=== PATIENT | male | born 1960 | race African-American/Black ===

== ENCOUNTER 2016-12-16 15:22 | Emergency (ER) | payer OTHER ==
[~2016-12-16] VITALS: Ht 180.3 cm; Wt 79.4 kg
[~2016-12-16 15:22] MED LIST: ACETAMINOPHEN-1 EAC1 ORAL; IBUPROFEN600 MG ORAL; KEFLEX500 MG ORAL; NKM; OCUFEN2.5 ML OP; TOBRAMYCIN5 ML OPHTHALM; [UNRECOGNIZED DRUG - OTHER] OP
--- NOTE | 2016-12-16 16:10 | Emergency Room Report ---
History of Present Illness General Chief Complaint: Wound Recheck/Suture Removal Source: Patient Present Illness HPI 55-year-old male presents to emergency Department complaining of previously sutured lacerations to the right forearm over 2 weeks ago. Patient states he sustained laceration and had sutures placed at [facility]. Patient reports pain 5/10 in severity. Patient denies erythema. Patient denies discharge. he states that the lacerations are somewhat itching in nature. Denies CP, Palpitations, LOC, AMS, dizziness, Changes in Vision, Sensation, paresthesias, or a sudden severe headache. Allergies: Coded Allergies: No Known Allergies (Unverified , 08/23/15) Patient History Past Medical History: see triage record Past Surgical History: none Pertinent Family History: none Immunizations: UTD Reviewed Nursing Documentation: PMH: Agreed, PSxH: Agreed Nursing Documentation-PMH Past Medical History: No History, Except For Hx Hypertension: Yes Hx Pacemaker: No Hx COPD: No Hx Diabetes: Yes - family hx Hx Cancer: Yes - family hx Hx Gastrointestinal Problems: No Hx Dialysis: No Hx Neurological Problems: No Hx Cerebrovascular Accident: Yes Hx Seizures: No Review of Systems All Other Systems: negative except mentioned in HPI Physical Exam Vital Signs Date Time Temp Pulse Resp B/P Pulse Ox O2 Delivery O2 Flow Rate FiO2 12/16/16 15:36 97.9 92 18 111/74 98 Room Air Sp02 EP Interpretation: reviewed, normal General Appearance: no apparent distress, alert, GCS 15, non-toxic Head: normocephalic, atraumatic Eyes: bilateral eye PERRL, bilateral eye normal inspection ENT: hearing grossly normal, normal pharynx, no angioedema, normal voice Neck: full range of motion, supple/symm/no masses Respiratory: chest non-tender, lungs clear, normal breath sounds, speaking full sentences Cardiovascular #1: regular rate, rhythm, no edema, normal capillary refill Rectal: deferred Musculoskeletal: back normal, gait/station normal, normal range of motion, non- tender, no calf tenderness Neurologic: alert, oriented x3, responsive, motor strength/tone normal, sensory intact, speech normal Psychiatric: judgement/insight normal, memory normal, mood/affect normal, no suicidal/homicidal ideation Skin: normal color, no rash, warm/dry, well hydrated, laceration - two previously sutured lacerations one with 8 inturrupted sutures and is approximately 2.5 inches long, and one that has 3 inturrupted sutures and is 0.8 inches long, no appreciable erythema of the right fore arm. Lymphatic: no adenopathy Medical Decision Making PA Attestation Dr. Cr is my supervising Physician whom patient management has been discussed with. Diagnostic Impression: Primary Impression: Encounter for removal of sutures ER Course Pt. presents to the ED c/o previously sutured laceration to the right arm that needs sutures to be removed s/p wound closure. Ddx considered but are not limited to laceration, tendon injury, cellulitis, dehiscence. Vital signs: are WNL, pt. is afebrile H&PE are most consistent with: healed laceration of the right forearm. ORDERS: none required at this time, the diagnosis is clinical ED INTERVENTIONS: - 11 Sutures removed. -the smaller laceration did have some notable purulent dc on the removed sutures , no evidence of dehiscence, will place pt. on oral abx. -bacitracin is applied. DISCHARGE: At this time pt. is stable for d/c to home. Will provide printed patient care instructions, and any necessary prescriptions. Care plan and follow up instructions have been discussed with the patient prior to discharge. Last Vital Signs Date Time Temp Pulse Resp B/P Pulse Ox O2 Delivery O2 Flow Rate FiO2 12/16/16 15:36 97.9 92 18 111/74 98 Room Air Disposition: HOME, SELF-CARE Condition: Stable Scripts Cephalexin* (KEFLEX*) 500 Mg Capsule 500 MG ORAL EVERY 12 HOURS for 7 Days, #14 CAP 0 Refills Prov: Vianney Pisano 12/16/16 [facility]errals[facility] (PCP) Patient Instructions: Suture Removal, Care After Additional Instructions: Take medications as directed. Follow up with PCP in 3-5 days Return sooner to ED if new symptoms occur, or current symptoms become worse. Vianney Pisano Dec 16, 2016 16:10
[2016-12-16] MEDS ORDERED: CEPHALEXIN500 MG ORAL (16:18)
[2016-12-16 16:26] VITALS: BP 109/68
[2016-12-16] MEDS ORDERED: Bacitracin Oint UD TOPIC ONE (16:30)
== END 2016-12-16 16:28 | disposition home or self-care (01) ==
LOC: EMR 16:05
DX: Z48.02 Encounter for removal of sutures (principal); I10 Essential (primary) hypertension; Z80.9 Family history of malignant neoplasm, unspecified; Z83.3 Family history of diabetes mellitus; Z86.73 Personal history of transient ischemic attack (TIA), and cerebral infarction without residual deficits
CPT/HCPCS: 99283

== ENCOUNTER 2017-01-09 18:41 | Emergency (ER) | payer OTHER ==
[~2017-01-09] VITALS: Ht 180.3 cm; Wt 77.1 kg
[~2017-01-09 18:41] MED LIST changes: +CEPHALEXIN500 MG ORAL
[2017-01-09] MEDS ORDERED: NKM (18:50)
[2017-01-09 19:03] VITALS: BP 132/72
[2017-01-09 19:30] LABS: KETONES,URINE NEGATIVE (NEGATIVE); LEUKOCYTE ESTERASE ,URINE 1+ (NEGATIVE); NITRITE,URINE NEGATIVE (NEGATIVE); PH,URINE 7 (4.5-8.0); PROTEIN,URINE 1+ (NEGATIVE); UROBILINOGEN,URINE NORMAL MG/DL (0.0-1.0)
[2017-01-09 19:41] LABS: APPEARANCE,URINE CLEAR
[2017-01-09 19:45] LABS: BACTERIA,URINE FEW /HPF; WBC,URINE 0-2 /HPF (0 - 0)
[2017-01-09 20:05] LABS: MEAN CORPUSCULAR HEMOGLOBIN 32.5 PG (27.0-31.0); MEAN CORPUSCULAR HGB CONC 34.6 G/DL (32.0-36.0); MEAN CORPUSCULAR VOLUME 94 FL (80-99); MEAN PLATELET VOLUME 8.4 FL (6.5-10.1); PLATELET COUNT 204 K/UL (150-450); RED BLOOD COUNT 4.33 M/UL (4.70-6.10); RED CELL DISTRIBUTION WIDTH 11.7 % (11.6-14.8); WHITE BLOOD COUNT 17.5 K/UL (4.8-10.8)
[2017-01-09 20:26] LABS: ALANINE AMINOTRANSFERASE 22 U/L (3-41); ALBUMIN/GLOBULIN RATIO 1.3 (1.0-2.7); ANION GAP 17 (5-15); ASPARTATE AMINO TRANSFERASE 19 U/L (5-40); CALCIUM 8.8 mg/dL (8.6-10.2); CARBON DIOXIDE 27 mEQ/L (20-30); CHLORIDE 92 mEQ/L (98-107); GLOMERULAR FILTRATION RATE > 60 mL/min (>60); HEMOLYSIS 14; POTASSIUM 3.8 mEQ/L (3.4-4.9); SODIUM 136 mEQ/L (135-145); TOTAL PROTEIN 7.8 g/dL (6.6-8.7)
[2017-01-09 20:38] LABS: BILIRUBIN,DIRECT 0.3 mg/dL (0.1-0.3)
--- NOTE | 2017-01-09 21:57 | Emergency Room Report ---
History of Present Illness General Chief Complaint: Male Urogenital Problems Present Illness HPI 56-year-old male presents emergency department complaining of acute intermittent right-sided back pain which began 4 days ago. Patient reports pain is 10 out of 10 in severity and lasts several seconds before complete resolution. Patient also reports onset of hematuria and dysuria x3 days. Patient states he has a history of kidney stones in the past. Patient also reports fevers and chills. he denies penile discharge or recent unprotected intercourse. he denies fall or trauma. Patient reports polyuria. And having cold hands and feet. Patient denies abdominal pain. Patient states that he has not had low back pain today. Patient reports difficulty urinating initially and then polyuria with hematuria and dysuria. Denies CP, Palpitations , LOC, AMS, dizziness, Changes in Vision, Sensation, paresthesias, or a sudden severe headache. (Vianney Pisano P.A.) Allergies: Coded Allergies: No Known Allergies (Unverified , 08/23/15) Patient History Past Medical History: see triage record Past Surgical History: none Pertinent Family History: none Immunizations: UTD Reviewed Nursing Documentation: PMH: Agreed, PSxH: Agreed (Vianney Pisano P.A.) Nursing Documentation-PMH Hx Hypertension: Yes Hx Pacemaker: No Hx COPD: No Hx Diabetes: Yes - family hx Hx Cancer: Yes - family hx Hx Gastrointestinal Problems: No Hx Dialysis: No Hx Neurological Problems: No Hx Cerebrovascular Accident: Yes Hx Seizures: No (Vianney Pisano P.A.) Review of Systems All Other Systems: negative except mentioned in HPI (Vianney Pisano P.A.) Physical Exam Vital Signs Date Time Temp Pulse Resp B/P Pulse Ox O2 Delivery O2 Flow Rate FiO2 01/09/17 18:47 97.5 89 20 132/72 100 Room Air Sp02 EP Interpretation: reviewed, normal General Appearance: no apparent distress, alert, GCS 15, non-toxic Head: normocephalic, atraumatic Eyes: bilateral eye PERRL, bilateral eye normal inspection ENT: hearing grossly normal, normal pharynx, no angioedema, normal voice Neck: full range of motion, supple/symm/no masses Respiratory: chest non-tender, lungs clear, normal breath sounds, speaking full sentences Cardiovascular #1: regular rate, rhythm, no edema Gastrointestinal: normal bowel sounds, non tender, soft, no guarding, no rebound Rectal: deferred Genitourinary: normal inspection, penis normal, CVA tenderness (R) Musculoskeletal: back normal, gait/station normal, normal range of motion Neurologic: alert, oriented x3, responsive, motor strength/tone normal, sensory intact, speech normal Psychiatric: judgement/insight normal, memory normal, mood/affect normal, no suicidal/homicidal ideation Skin: normal color, no rash, warm/dry, well hydrated Lymphatic: no adenopathy (Vianney Pisano) Medical Decision Making PA Attestation Dr. Guerra is my supervising Physician whom patient management has been discussed with. (Vianney Pisano) Diagnostic Impression: Primary Impression: Pyelonephritis Additional Impression: Cystitis ER Course 56-year-old male presents emergency department complaining of acute intermittent right-sided back pain which began 4 days ago. Patient reports pain is 10 out of 10 in severity and lasts several seconds before complete resolution. Patient also reports onset of hematuria and dysuria x3 days. Patient states he has a history of kidney stones in the past. Patient also reports fevers and chills. he denies penile discharge or recent unprotected intercourse. he denies fall or trauma. Patient reports polyuria. And having cold hands and feet. Ddx considered but are not limited to UTi , Pyelo, STI, Stone, Cystitis Vital signs: are WNL, pt. is afebrile H&PE are most consistent with possible pyelonephritis and stones. ORDERS: - UA labs are attached: RBC's, few bacteria, no WBC's, some leukocytes. - CBC & CMP: leukocytosis, good renal function. - CT abdomen and Pelvis No Contrast: perinephritic stranding of the right kidney, and thick urinary bladder c/w cystitis, No stones or hydronephrosis, normal appendix- per preliminary radiology report. ED INTERVENTIONS: -200mg Pyridium DISCHARGE: At this time pt. is stable for d/c to home. Will provide printed patient care instructions, and any necessary prescriptions. Care plan and follow up instructions have been discussed with the patient prior to discharge. Pt. is D/C with written RX's for: Cipro, Pyridium, and [place] The hand written rx's were for: 500mg Ciprofloxacin , one tablet PO twice daily #20 100g Pyridium , one tablet TID as needed for dysuria # 15 5mg [place], one tablet Q6H as needed for severe pain #5 Labs Test 01/09/17 19:23 01/09/17 19:46 Urine Color Pale yellow Urine Appearance Clear Urine pH 7 (4.5-8.0) Urine Specific [place] 1.005 (1.005-1.035) Urine Protein 1+ (NEGATIVE) Urine Glucose (UA) Negative (NEGATIVE) Urine Ketones Negative (NEGATIVE) Urine Occult Blood 3+ (NEGATIVE) Urine Nitrite Negative (NEGATIVE) Urine Bilirubin Negative (NEGATIVE) Urine Urobilinogen Normal MG/DL (0.0-1.0) Urine Leukocyte Esterase 1+ (NEGATIVE) Urine RBC 2-4 /HPF (0 - 0) Urine WBC 0-2 /HPF (0 - 0) Urine Squamous Epithelial Cells None /LPF (NONE/OCC) Urine Bacteria Few /HPF (NONE) White Blood Count 17.5 K/UL (4.8-10.8) Red Blood Count 4.33 M/UL (4.70-6.10) Hemoglobin 14.1 G/DL (14.2-18.0) Hematocrit 40.7 % (42.0-52.0) Mean Corpuscular Volume 94 FL (80-99) Mean Corpuscular Hemoglobin 32.5 PG (27.0-31.0) Mean Corpuscular Hemoglobin Concent 34.6 G/DL (32.0-36.0) Red Cell Distribution Width 11.7 % (11.6-14.8) Platelet Count 204 K/UL (150-450) Mean Platelet Volume 8.4 FL (6.5-10.1) Neutrophils (%) (Auto) % (45.0-75.0) Lymphocytes (%) (Auto) % (20.0-45.0) Monocytes (%) (Auto) % (1.0-10.0) Eosinophils (%) (Auto) % (0.0-3.0) Basophils (%) (Auto) % (0.0-2.0) Differential Total Cells Counted 100 Neutrophils % (Manual) 82 % (45-75) Lymphocytes % (Manual) 9 % (20-45) Monocytes % (Manual) 4 % (1-10) Eosinophils % (Manual) 0 % (0-3) Basophils % (Manual) 0 % (0-2) Band Neutrophils 5 % (0-8) Platelet Estimate Adequate Platelet Morphology Normal Red Blood Cell Morphology Normal Sodium Level 136 mEQ/L (135-145) Potassium Level 3.8 mEQ/L (3.4-4.9) Chloride Level 92 mEQ/L (98-107) Carbon Dioxide Level 27 mEQ/L (20-30) Anion Gap 17 (5-15) Blood Urea Nitrogen 9 mg/dL (7-23) Creatinine 1.0 mg/dL (0.7-1.2) Estimat Glomerular Filtration Rate > 60 mL/min (>60) Glucose Level 107 mg/dL (74-106) Calcium Level 8.8 mg/dL (8.6-10.2) Total Bilirubin 1.3 mg/dL (0.0-1.2) Direct Bilirubin 0.3 mg/dL (0.1-0.3) Aspartate Amino Transf (AST/SGOT) 19 U/L (5-40) Alanine Aminotransferase (ALT/SGPT) 22 U/L (3-41) Alkaline Phosphatase 64 U/L (40-129) Total Protein 7.8 g/dL (6.6-8.7) Albumin 4.5 g/dL (3.5-5.2) Globulin 3.3 g/dL Albumin/Globulin Ratio 1.3 (1.0-2.7) (Vianney Pisano) Last Vital Signs Date Time Temp Pulse Resp B/P Pulse Ox O2 Delivery O2 Flow Rate FiO2 01/09/17 19:03 97.5 88 20 132/72 100 Room Air (Vianney Pisano) Disposition: HOME, SELF-CARE Condition: Stable Referrals: [facility] (PCP) Patient Instructions: Pyelonephritis, Adult Additional Instructions: Take medications as directed. Follow up with PCP in 3-5 days Return sooner to ED if new symptoms occur, or current symptoms become worse. Do not drink alcohol, drive, or operate heavy machinery while taking [place] as this may cause drowsiness. - Please note that this Emergency Department Report was dictated using [employer] manager technology software, occasionally this can lead to erroneous entry secondary to interpretation by the dictation equipment. Vianney Pisano Jan 09, 2017 21:57 Guillermo Guerra M.D. Jan 14, 2017 00:51
[2017-01-09] MEDS ORDERED: Phenazopyridine 200mg tab ORAL ONE (22:00)
[2017-01-09 22:21] LABS: BAND NEUTROPHILS % (MANUAL) 5 % (0-8); LYMPHOCYTES % (MANUAL) 9 % (20-45); NEUTROPHILS % (MANUAL) 82 % (45-75); TOTAL CELLS COUNTED 100
[2017-01-09 22:26] LABS: BASOPHILS % (MANUAL) 0 % (0-2); EOSINOPHILS % (MANUAL) 0 % (0-3); PLATELET ESTIMATE ADEQUATE; PLATELET MORPHOLOGY NORMAL
[2017-01-09 22:28] VITALS: BP 132/70
[2017-01-09 22:29] VITALS: BP 132/70
--- NOTE | 2017-01-10 09:08 | Diagnostic Imaging Report ---
Indication: Abdominal pain Technique: Spiral acquisitions obtained through the abdomen and pelvis. No oral contrast utilized, per emergency room physician request No IV contrast utilized, per referring physician request.. Multiplanar reconstructions were generated. Total dose length product 650 mGycm. CTDIvol(s) 12 mGy Comparison: None Findings: The bladder is markedly thick walled. There is trace edema versus free fluid posterior to the bladder. The prostate is enlarged. The prosthetic margins appear blurred. A normal appendix is probably demonstrated. No evidence of diverticulosis or diverticulitis. No small bowel distention. Other than a small amount of fluid or edema posterior to the bladder, no free or loculated intraperitoneal air or fluid is demonstrated. Lack of IV contrast limits assessment of solid organs. The liver, gallbladder, bile ducts, pancreas, spleen, adrenals are unremarkable. There are is nonspecific mild bilateral perinephric fat stranding. No focal renal parenchymal abnormality. No retroperitoneal or mesenteric mass or adenopathy. No pelvic mass or adenopathy. Surgical clips are seen in the bilateral inguinal regions The included lung bases are clear. The bones are unremarkable. Impression: Thickwalled bladder, suspect cystitis. Small amount of edema or free fluid posterior to the bladder is likely related to such Enlarged prostate with indistinct margins, may indicate prostatitis Bilateral perinephric stranding, raises possibility of bilateral pyelonephritis Evidence of prior right groin surgery bilaterally This agrees with the preliminary interpretation provided overnight by Dr. Joseph The CT scanner at [facility] is accredited by the [employer] and the scans are performed using protocols designed to limit radiation exposure to as low as reasonably achievable to attain images of sufficient resolution adequate for diagnostic evaluation.
== END 2017-01-09 22:30 | disposition home or self-care (01) ==
LOC: EMR 19:31
DX: N12 Tubulo-interstitial nephritis, not specified as acute or chronic (principal); N30.90 Cystitis, unspecified without hematuria; I10 Essential (primary) hypertension; Z83.3 Family history of diabetes mellitus; Z80.9 Family history of malignant neoplasm, unspecified; Z86.73 Personal history of transient ischemic attack (TIA), and cerebral infarction without residual deficits; N40.0 Benign prostatic hyperplasia without lower urinary tract symptoms
CPT/HCPCS: 36415; 74176; 80053; 81003; 82248; 85007; 85025; 99284

== ENCOUNTER 2017-08-18 18:02 | Emergency (ER) | payer OTHER ==
[~2017-08-18] VITALS: Ht 180.3 cm; Wt 74.8 kg
[2017-08-18] MEDS ORDERED: traMADol 50mg tab ORAL ONE (18:45)
[2017-08-18] MEDS ORDERED: Bacitracin Oint UD TOPIC ONE (18:45)
[2017-08-18] MEDS ORDERED: AUGMENTIN 875-1 EAC1 ORAL (19:05)
[2017-08-18] MEDS ORDERED: TRAMADOL HCL50 MG ORAL (19:05)
[2017-08-18] MEDS ORDERED: PEPCID40 MG PO (19:05)
[2017-08-18] MEDS ORDERED: IBUPROFEN600 MG ORAL (19:05)
[2017-08-18 19:26] VITALS: BP 134/80
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
--- NOTE | 2017-08-19 11:34 | Diagnostic Imaging Report ---
Indication: pain Findings: 3 views of the left hand were obtained. Normal alignment is demonstrated. No acute fractures, erosions, or periosteal reaction are seen. Soft tissues are unremarkable. Impression: No acute findings.
== END 2017-08-18 19:30 | disposition home or self-care (01) ==
LOC: EMR 19:30
DX: S61.218A Laceration without foreign body of other finger without damage to nail, initial encounter (principal); Y04.0XXA Assault by unarmed brawl or fight, initial encounter; Y92.89 Other specified places as the place of occurrence of the external cause; E11.9 Type 2 diabetes mellitus without complications; I10 Essential (primary) hypertension
CPT/HCPCS: 99284

== ENCOUNTER 2018-04-09 23:38 | Emergency (ER) | payer OTHER ==
[~2018-04-09] VITALS: Ht 180.3 cm; Wt 81.6 kg
[~2018-04-09 23:38] MED LIST changes: +AUGMENTIN 875-1 EAC1 ORAL; +PEPCID40 MG PO; +TRAMADOL HCL50 MG ORAL
[2018-04-10] MEDS ORDERED: Aspirin Baby 81mg ORAL ONE
[2018-04-10 00:17] LABS: BILIRUBIN, URINE NEGATIVE (NEGATIVE); COLOR,URINE PALE YELLOW; GLUCOSE, URINE (UA) NEGATIVE (NEGATIVE); KETONES,URINE NEGATIVE (NEGATIVE); NITRITE,URINE NEGATIVE (NEGATIVE); PH,URINE 8 (4.5-8.0); PROTEIN,URINE NEGATIVE (NEGATIVE); UROBILINOGEN,URINE NORMAL MG/DL (0.0-1.0)
[2018-04-10 00:17] LABS: BASOPHILS % (AUTO) 0.7 % (0.0-2.0); EOSINOPHILS % (AUTO) 1.5 % (0.0-3.0); HEMATOCRIT 37.4 % (42.0-52.0); HEMOGLOBIN 13.3 G/DL (14.2-18.0); LYMPHOCYTES % (AUTO) 16.6 % (20.0-45.0); MEAN CORPUSCULAR VOLUME 92 FL (80-99); MONOCYTES % (AUTO) 6.4 % (1.0-10.0); NEUTROPHILS % (AUTO) 74.9 % (45.0-75.0); PLATELET COUNT 212 K/UL (150-450); RED BLOOD COUNT 4.06 M/UL (4.70-6.10); RED CELL DISTRIBUTION WIDTH 12.4 % (11.6-14.8); WHITE BLOOD COUNT 10.2 K/UL (4.8-10.8)
[2018-04-10 00:19] LABS: APPEARANCE,URINE CLEAR; LEUKOCYTE ESTERASE ,URINE NEGATIVE (NEGATIVE)
[2018-04-10 00:24] LABS: ANION GAP 6 mmol/L (5-15); BLOOD UREA NITROGEN 13 mg/dL (7-18); CALCIUM 8.2 MG/DL (8.5-10.1); CARBON DIOXIDE 30 MMOL/L (21-32); CHLORIDE 103 MMOL/L (98-107); CREATININE 1.1 MG/DL (0.55-1.30); SODIUM 139 MMOL/L (136-145)
[2018-04-10 00:37] LABS: ALANINE AMINOTRANSFERASE 33 U/L (12-78); ALBUMIN 3.7 G/DL (3.4-5.0); ALBUMIN/GLOBULIN RATIO 0.9 (1.0-2.7); ALKALINE PHOSPHATASE 72 U/L (46-116); ASPARTATE AMINO TRANSFERASE 15 U/L (15-37); BILIRUBIN,TOTAL 0.4 MG/DL (0.2-1.0); CREATINE KINASE 155 U/L (26-308)
[2018-04-10] MEDS ORDERED: Nitroglycerin Subl 0.4mg tab SL PRN (00:45)
[2018-04-10] MEDS ORDERED: Enoxaparin 100mg Inj SUBQ ONE (00:45)
--- NOTE | 2018-04-10 00:48 | Emergency Room Report ---
History of Present Illness General Chief Complaint: Chest Pain Source: Patient Present Illness HPI This is a 57-year-old -Armenian male with no past medical history. He presents with chief complaint of chest pain and short of breath. Onset for last 2-3 days. He said pain is mild at baseline and worse when he walks. He said he has a hard time walking because of the pain in he get winded. Pain is substernal waiting to both arms. No diaphoresis. Short of breath with walking. No nausea no vomiting. Increased owing to the lower extremity. At baseline pain is 2-3. When he walks up to a 10 out of 10. Never had this problem before. Allergies: Coded Allergies: No Known Allergies (Unverified , 04/09/18) Patient History Past Medical History: see triage record, old chart reviewed Past Surgical History: none Pertinent Family History: HTN, DM Social History: Reports: smoking Immunizations: other Reviewed Nursing Documentation: PMH: Agreed; PSxH: Agreed Nursing Documentation-PMH Past Medical History: No Stated History Hx Hypertension: No Hx Pacemaker: No Hx COPD: No Hx Diabetes: Yes - family hx Hx Cancer: Yes - family hx Hx Gastrointestinal Problems: No Hx Dialysis: No Hx Neurological Problems: No Hx Cerebrovascular Accident: Yes Hx Seizures: No Review of Systems Eye: Denies: eye pain, blurred vision ENT: Denies: ear pain, nose congestion, throat swelling Respiratory: Denies: cough, shortness of breath Cardiovascular: Reports: chest pain; Denies: palpitations Gastrointestinal: Denies: abdominal pain, diarrhea, nausea, vomiting Musculoskeletal: Denies: back pain, joint pain Skin: Denies: rash Neurological: Denies: headache, numbness Endocrine: Denies: increased thirst, increased urine Hematologic/Lymphatic: Denies: easy bruising All Other Systems: negative except mentioned in HPI Physical Exam Vital Signs Date Time Temp Pulse Resp B/P (MAP) Pulse Ox O2 Delivery O2 Flow Rate FiO2 04/09/18 23:39 97.8 106 16 117/72 98 Room Air 97.9 vitals with tachycardia Sp02 EP Interpretation: reviewed, normal General Appearance: well appearing, no apparent distress, alert Head: normocephalic, atraumatic Eyes: bilateral eye PERRL, bilateral eye EOMI ENT: hearing grossly normal, normal pharynx Neck: full range of motion, supple, no meningismus Respiratory: chest non-tender, lungs clear, normal breath sounds Cardiovascular #1: regular rate, rhythm, no murmur Gastrointestinal: normal bowel sounds, non tender, no mass, no organomegaly, no bruit, non-distended Musculoskeletal: back normal, gait/station normal, normal range of motion, swelling - 1+ pitting edema to bilateral lower extremities Psychiatric: mood/affect normal Skin: warm/dry Procedures Critical Care Time Critical Care Time Critical care is mandated in this patient who presented with ACS. Patient require my urgent intervention to attenuate the risks of metabolic collapse which may lead to cardiovascular collapse and . Critical care time is 35 minutes excluding any reportable procedure. Critical care time included evaluation, multiple reevaluation, looking at old charts, interpreting laboratory and diagnostic data, discussing case with patient and family and consultants, and charting. Medical Decision Making Diagnostic Impression: Primary Impression: ACS (acute coronary syndrome) ER Course Patient presents with mild chest pain and worsened by exertional pain. No evidence of ST elevation NE. He is pain-free now. He received aspirin, Lovenox and nitroglycerin here. I discussed the case with Dr. Rico who accepted him for transfer to [facility]. Laboratory Tests Test 04/09/18 23:50 04/10/18 00:00 Urine Color Pale yellow Urine Appearance Clear Urine pH 8 (4.5-8.0) Urine Specific [place] 1.010 (1.005-1.035) Urine Protein Negative (NEGATIVE) Urine Glucose (UA) Negative (NEGATIVE) Urine Ketones Negative (NEGATIVE) Urine Occult Blood Negative (NEGATIVE) Urine Nitrite Negative (NEGATIVE) Urine Bilirubin Negative (NEGATIVE) Urine Urobilinogen Normal MG/DL (0.0-1.0) Urine Leukocyte Esterase Negative (NEGATIVE) Urine Opiates Screen Negative (NEGATIVE) Urine Barbiturates Screen Negative (NEGATIVE) Phencyclidine (PCP) Screen Negative (NEGATIVE) Urine Amphetamines Screen Negative (NEGATIVE) Urine Benzodiazepines Screen Negative (NEGATIVE) Urine Cocaine Screen Negative (NEGATIVE) Urine Marijuana (THC) Screen Positive (NEGATIVE) H White Blood Count 10.2 K/UL (4.8-10.8) Red Blood Count 4.06 M/UL (4.70-6.10) L Hemoglobin 13.3 G/DL (14.2-18.0) L Hematocrit 37.4 % (42.0-52.0) L Mean Corpuscular Volume 92 FL (80-99) Mean Corpuscular Hemoglobin 32.8 PG (27.0-31.0) H Mean Corpuscular Hemoglobin Concent 35.6 G/DL (32.0-36.0) Red Cell Distribution Width 12.4 % (11.6-14.8) Platelet Count 212 K/UL (150-450) Mean Platelet Volume 8.3 FL (6.5-10.1) Neutrophils (%) (Auto) 74.9 % (45.0-75.0) Lymphocytes (%) (Auto) 16.6 % (20.0-45.0) L Monocytes (%) (Auto) 6.4 % (1.0-10.0) Eosinophils (%) (Auto) 1.5 % (0.0-3.0) Basophils (%) (Auto) 0.7 % (0.0-2.0) Sodium Level 139 MMOL/L (136-145) Potassium Level 4.0 MMOL/L (3.5-5.1) Chloride Level 103 MMOL/L (98-107) Carbon Dioxide Level 30 MMOL/L (21-32) Anion Gap 6 mmol/L (5-15) Blood Urea Nitrogen 13 mg/dL (7-18) Creatinine 1.1 MG/DL (0.55-1.30) Estimat Glomerular Filtration Rate > 60 mL/min (>60) Glucose Level 108 MG/DL (74-106) H Calcium Level 8.2 MG/DL (8.5-10.1) L Total Bilirubin 0.4 MG/DL (0.2-1.0) Aspartate Amino Transf (AST/SGOT) 15 U/L (15-37) Alanine Aminotransferase (ALT/SGPT) 33 U/L (12-78) Alkaline Phosphatase 72 U/L (46-116) Total Creatine Kinase 155 U/L (26-308) Creatine Kinase MB 1.0 NG/ML (0.0-3.6) Creatine Kinase MB Relative Index 0.6 Troponin I 0.529 ng/mL (0.000-0.056) Pro-B-Type Natriuretic Peptide 110 pg/mL (0-125) Total Protein 7.6 G/DL (6.4-8.2) Albumin 3.7 G/DL (3.4-5.0) Globulin 3.9 g/dL Albumin/Globulin Ratio 0.9 (1.0-2.7) L Lab Results Impression labs with elevated troponin EKG Diagnostic Results Rate: normal Rhythm: NSR ST Segments: other - incomplete RBB ASA given to the pt in ED: Yes Rhythm Strip Diag. Results Rhythm Strip Time: 00:49 EP Interpretation: yes Rate: 86 Rhythm: NSR, no PVC's, no ectopy Chest X-Ray Diagnostic Results Chest X-Ray Diagnostic Results : Chest X-Ray Ordered: Yes # of Views/Limited/Complete: 1 View Indication: Chest Pain EP Interpretation: Yes Interpretation: no consolidation, no effusion, no pneumothorax, no acute cardiopulmonary disease Impression: No acute disease Electronically Signed by: Joselito Leon MD Last Vital Signs Date Time Temp Pulse Resp B/P (MAP) Pulse Ox O2 Delivery O2 Flow Rate FiO2 04/09/18 23:52 106 16 Room Air 04/09/18 23:39 97.8 117/72 98 97.9 Status: improved Disposition: XFER SHT-TRM HOSP Condition: Stable Referrals: [facility],REFERRING (PCP) JOSELITO LEON M.D. April 10, 2018 00:48
[2018-04-10 00:50] VITALS: BP 117/66
[2018-04-10 02:21] VITALS: BP 114/67
[2018-04-10 03:20] VITALS: BP 114/67
--- NOTE | 2018-04-10 10:08 | Diagnostic Imaging Report ---
Indication: Shortness of breath Technique: One view of the chest Comparison: 02/29/2016 Findings: Lungs and pleural spaces are clear. Heart size is normal. No significant interim change Impression: No acute process
--- NOTE | 2018-04-10 22:34 | Cardiology Report ---
APPROVED REPORT EKG Measurement Heart [id number] Sinus tachycardia Right bundle branch block Borderline ECG
== END 2018-04-10 03:20 | disposition short-term general hospital (02) ==
LOC: EMR 23:52
DX: I24.9 Acute ischemic heart disease, unspecified (principal); I10 Essential (primary) hypertension; E11.9 Type 2 diabetes mellitus without complications; Z83.3 Family history of diabetes mellitus; Z82.3 Family history of stroke
CPT/HCPCS: 36415; 71045; 80053; 80307; 81003; 82550; 82553; 83880; 84484; 85025; 93005; 99291; J1650; 99285

== ENCOUNTER 2018-08-26 15:38 | Emergency (ER) | payer OTHER ==
[~2018-08-26] VITALS: Ht 170.2 cm; Wt 72.6 kg
[2018-08-26 16:00] VITALS: BP 145/80
--- NOTE | 2018-08-26 16:04 | Emergency Room Report ---
History of Present Illness General Chief Complaint: Syncope Present Illness HPI Patient is a 57-year-old male brought in by EMS with [employer] after reportedly being arrested. The patient had the reported [employer] that he was feeling lightheaded. The patient stated that he does not get high. The patient had no head injury. Patient was assisted to the floor. He was not noted to have any tonic-clonic movements. The patient recently been transferred to outside facility for evaluation of chest pain. The patient had been seen at this facility multiple times in the past. History is markedly limited by patient's poor cooperation. Allergies: Coded Allergies: No Known Allergies (Unverified , 04/09/18) Patient History Past Medical History: see triage record Reviewed Nursing Documentation: PMH: Agreed; PSxH: Agreed Nursing Documentation-PMH Hx Hypertension: No Hx Pacemaker: No Hx COPD: No Hx Diabetes: Yes - family hx Hx Cancer: Yes - family hx Hx Gastrointestinal Problems: No Hx Dialysis: No Hx Neurological Problems: No Hx Cerebrovascular Accident: Yes Hx Seizures: No Review of Systems All Other Systems: limited - by poor historian Physical Exam Vital Signs Date Time Temp Pulse Resp B/P (MAP) Pulse Ox O2 Delivery O2 Flow Rate FiO2 08/26/18 15:34 102 21 145/80 96 Room Air Sp02 EP Interpretation: reviewed, normal General Appearance: normal inspection, well appearing, no apparent distress, alert, GCS 15, non-toxic Head: atraumatic ENT: normal ENT inspection, hearing grossly normal, normal voice Neck: normal inspection, full range of motion, supple, no bony tend Respiratory: normal inspection, lungs clear, normal breath sounds, no respiratory distress, no retraction, no wheezing Cardiovascular #1: regular rate, rhythm, no edema Gastrointestinal: normal inspection, normal bowel sounds, non tender, soft, no guarding, no hernia Genitourinary: no CVA tenderness Musculoskeletal: normal inspection, back normal, normal range of motion Neurologic: normal inspection, alert, responsive, tie in hand III-XII nml as tested, other - cooperative, pupils equal and reactive Psychiatric: normal inspection, other - tearful Skin: normal inspection, normal color, no rash Medical Decision Making Diagnostic Impression: Primary Impression: Syncope Additional Impression: Trichomonas infection ER Course Patient presented for possible syncope. Differential diagnosis included but was not limited to arrhythmia, orthostatic hypotension, hypovolemia, vasovagal, anemia among others. Because of complexity of patient's case laboratory testing and imaging studies were ordered. Patient was noted be awake alert and following commands. EKG interpreted by me showed normal sinus rhythm with a rate of [address] or T wave changes. Patient was noted to have incomplete right bundle- branch block which was also seen on previous EKGs.The patient's urine drug screen showed the positive for marijuana. Patient was not noted to be anemic. The patient was noted to be the behaving appropriately and following commands when asked questions. The patient is medically cleared for booking. The patient was discharged with [employer]. The patient was given IV Rocephin for urinary tract infection and was given prescription for Flagyl for Trichomonas. The patient appears to be stable for booking. Labs Test 08/26/18 15:56 White Blood Count 8.4 K/UL (4.8-10.8) Red Blood Count 4.24 M/UL (4.70-6.10) Hemoglobin 14.2 G/DL (14.2-18.0) Hematocrit 38.7 % (42.0-52.0) Mean Corpuscular Volume 91 FL (80-99) Mean Corpuscular Hemoglobin 33.4 PG (27.0-31.0) Mean Corpuscular Hemoglobin Concent 36.7 G/DL (32.0-36.0) Red Cell Distribution Width 11.7 % (11.6-14.8) Platelet Count 222 K/UL (150-450) Mean Platelet Volume 6.9 FL (6.5-10.1) Neutrophils (%) (Auto) 64.6 % (45.0-75.0) Lymphocytes (%) (Auto) 27.4 % (20.0-45.0) Monocytes (%) (Auto) 4.6 % (1.0-10.0) Eosinophils (%) (Auto) 2.1 % (0.0-3.0) Basophils (%) (Auto) 1.2 % (0.0-2.0) Urine Color Pale yellow Urine Appearance Clear Urine pH 5 (4.5-8.0) Urine Specific [place] 1.010 (1.005-1.035) Urine Protein Negative (NEGATIVE) Urine Glucose (UA) Negative (NEGATIVE) Urine Ketones Negative (NEGATIVE) Urine Blood 1+ (NEGATIVE) Urine Nitrite Negative (NEGATIVE) Urine Bilirubin Negative (NEGATIVE) Urine Urobilinogen Normal MG/DL (0.0-1.0) Urine Leukocyte Esterase 2+ (NEGATIVE) Urine RBC 2-4 /HPF (0 - 0) Urine WBC 10-15 /HPF (0 - 0) Urine Squamous Epithelial Cells Few /LPF (NONE/OCC) Urine Bacteria Occasional /HPF (NONE) Urine Trichomonas Occasional /HPF (NONE) Sodium Level 140 MMOL/L (136-145) Potassium Level 3.6 MMOL/L (3.5-5.1) Chloride Level 106 MMOL/L (98-107) Carbon Dioxide Level 24 MMOL/L (21-32) Anion Gap 10 mmol/L (5-15) Blood Urea Nitrogen 13 mg/dL (7-18) Creatinine 1.0 MG/DL (0.55-1.30) Estimat Glomerular Filtration Rate > 60 mL/min (>60) Glucose Level 105 MG/DL (74-106) Calcium Level 8.4 MG/DL (8.5-10.1) Total Bilirubin 0.5 MG/DL (0.2-1.0) Aspartate Amino Transf (AST/SGOT) 17 U/L (15-37) Alanine Aminotransferase (ALT/SGPT) 23 U/L (12-78) Alkaline Phosphatase 61 U/L (46-116) Troponin I 0.037 ng/mL (0.000-0.056) Total Protein 7.2 G/DL (6.4-8.2) Albumin 3.6 G/DL (3.4-5.0) Globulin 3.6 g/dL Albumin/Globulin Ratio 1.0 (1.0-2.7) Urine Opiates Screen Negative (NEGATIVE) Acetaminophen Level < 2 MCG/ML (10-30) Urine Barbiturates Screen Negative (NEGATIVE) Phencyclidine (PCP) Screen Negative (NEGATIVE) Urine Amphetamines Screen Negative (NEGATIVE) Urine Benzodiazepines Screen Negative (NEGATIVE) Urine Cocaine Screen Negative (NEGATIVE) Urine Marijuana (THC) Screen Positive (NEGATIVE) EKG Diagnostic Results Rate: normal Rhythm: NSR ST Segments: no acute changes Last Vital Signs Date Time Temp Pulse Resp B/P (MAP) Pulse Ox O2 Delivery O2 Flow Rate FiO2 08/26/18 15:34 102 21 145/80 96 Room Air Status: improved Disposition: D/C TO [facility] ENFORCEMENT IN [facility] Condition: Stable Scripts Metronidazole* (FLAGYL*) 500 Mg Tablet 500 MG ORAL BID, #14 TAB Prov: Asher Acuna MD 08/26/18 Asher Acuna MD Aug 26, 2018 16:04
[2018-08-26 16:13] LABS: BASOPHILS % (AUTO) 1.2 % (0.0-2.0); EOSINOPHILS % (AUTO) 2.1 % (0.0-3.0); HEMATOCRIT 38.7 % (42.0-52.0); HEMOGLOBIN 14.2 G/DL (14.2-18.0); LYMPHOCYTES % (AUTO) 27.4 % (20.0-45.0); MEAN CORPUSCULAR VOLUME 91 FL (80-99); MONOCYTES % (AUTO) 4.6 % (1.0-10.0); NEUTROPHILS % (AUTO) 64.6 % (45.0-75.0); PLATELET COUNT 222 K/UL (150-450); RED BLOOD COUNT 4.24 M/UL (4.70-6.10); RED CELL DISTRIBUTION WIDTH 11.7 % (11.6-14.8); WHITE BLOOD COUNT 8.4 K/UL (4.8-10.8)
[2018-08-26 16:14] LABS: APPEARANCE,URINE CLEAR; BILIRUBIN, URINE NEGATIVE (NEGATIVE); COLOR,URINE PALE YELLOW; GLUCOSE, URINE (UA) NEGATIVE (NEGATIVE); KETONES,URINE NEGATIVE (NEGATIVE); LEUKOCYTE ESTERASE ,URINE 2+ (NEGATIVE); NITRITE,URINE NEGATIVE (NEGATIVE); PH,URINE 5 (4.5-8.0); PROTEIN,URINE NEGATIVE (NEGATIVE); UROBILINOGEN,URINE NORMAL MG/DL (0.0-1.0)
[2018-08-26 16:36] LABS: ANION GAP 10 mmol/L (5-15); BLOOD UREA NITROGEN 13 mg/dL (7-18); CALCIUM 8.4 MG/DL (8.5-10.1); CARBON DIOXIDE 24 MMOL/L (21-32); CHLORIDE 106 MMOL/L (98-107); POTASSIUM 3.6 MMOL/L (3.5-5.1); SODIUM 140 MMOL/L (136-145)
[2018-08-26 16:40] LABS: ALANINE AMINOTRANSFERASE 23 U/L (12-78); ALBUMIN 3.6 G/DL (3.4-5.0); ALKALINE PHOSPHATASE 61 U/L (46-116); ASPARTATE AMINO TRANSFERASE 17 U/L (15-37); BILIRUBIN,TOTAL 0.5 MG/DL (0.2-1.0)
[2018-08-26] MEDS ORDERED: cefTRIAXone 1 GM in NS 55 ML IVPB ONE (16:45)
[2018-08-26] MEDS ORDERED: METRONIDAZOLE500 MG ORAL (17:21)
[2018-08-26 17:52] VITALS: BP 120/80
--- NOTE | 2018-08-30 12:18 | Cardiology Report ---
APPROVED REPORT EKG Measurement Heart [id number] Normal sinus rhythm Normal ECG
== END 2018-08-26 17:55 | disposition home or self-care (01) ==
LOC: EDBD 15:38 → EMR 15:58
DX: R55 Syncope and collapse (principal); A59.9 Trichomoniasis, unspecified
CPT/HCPCS: 36415; 80053; 80307; 81001; 84484; 85025; 87086; 93005; 96365; 99284; G0480; J0696; 80329

== ENCOUNTER 2020-08-09 00:11 | Inpatient (IN) | payer MEDICAID, OTHER ==
[2020-08-09] VITALS (8 sets, daily range): BP systolic 107–128; BP diastolic 65–85
[~2020-08-09] VITALS: Ht 180.3 cm; Wt 93.6 kg
[~2020-08-09 00:11] MED LIST changes: +METRONIDAZOLE500 MG ORAL
[2020-08-09 01:22] LABS: BASOPHILS % (AUTO) 0.8 % (0.0-2.0); EOSINOPHILS % (AUTO) 1.6 % (0.0-3.0); HEMATOCRIT 39.1 % (42.0-52.0); HEMOGLOBIN 14.3 G/DL (14.2-18.0); LYMPHOCYTES % (AUTO) 21.1 % (20.0-45.0); MEAN CORPUSCULAR VOLUME 89 FL (80-99); MONOCYTES % (AUTO) 6.5 % (1.0-10.0); NEUTROPHILS % (AUTO) 69.9 % (45.0-75.0); PLATELET COUNT 199 K/UL (150-450); RED BLOOD COUNT 4.38 M/UL (4.70-6.10); RED CELL DISTRIBUTION WIDTH 12.4 % (11.6-14.8); WHITE BLOOD COUNT 8.3 K/UL (4.8-10.8)
[2020-08-09 01:29] LABS: ANION GAP 8 mmol/L (5-15); BLOOD UREA NITROGEN 10 mg/dL (7-18); CALCIUM 8.5 MG/DL (8.5-10.1); CARBON DIOXIDE 27 MMOL/L (21-32); CHLORIDE 103 MMOL/L (98-107); CREATININE 1.1 MG/DL (0.55-1.30); POTASSIUM 3.5 MMOL/L (3.5-5.1); SODIUM 138 MMOL/L (136-145)
[2020-08-09 01:43] LABS: ALANINE AMINOTRANSFERASE 26 U/L (12-78); ALBUMIN 3.8 G/DL (3.4-5.0); ALBUMIN/GLOBULIN RATIO 1.3 (1.0-2.7); ALKALINE PHOSPHATASE 70 U/L (46-116); ASPARTATE AMINO TRANSFERASE 22 U/L (15-37); BILIRUBIN,TOTAL 1.2 MG/DL (0.2-1.0)
[2020-08-09 01:52] LABS: BILIRUBIN,DIRECT 0.3 MG/DL (0.0-0.3)
[2020-08-09] MEDS ORDERED: Nitroglycerin 2% oint pkt TOPIC ONE (02:15)
--- NOTE | 2020-08-09 02:22 | Emergency Room Report ---
History of Present Illness General Chief Complaint: Edema Source: Patient Present Illness HPI 59-year-old male with history of CAD status post stent x3, hypertension, dyslipidemia presents with complaints of generalized weakness and lower extremity edema that has been progressive for the last several weeks. Also endorses dyspnea on exertion but denies chest pain. He states he has been noncompliant with his medications. Denies recent history of cardiac evaluation or echocardiogram. Symptoms do not feel similar to previous PA. Patient denies fevers, chills, nausea, vomiting, diarrhea, shortness of breath, cough, hemoptysis, or history of blood clot. The patient's symptoms were gradual onset, severity was moderate, duration since 2 days. Quality: Short of breath Past medical history: CAD, CHF, hypertension, dyslipidemia Past surgical history: Stent x3 Smoking: Positive Alcohol use: Denies Drug use: Marijuana Review of systems: CONST: No fevers or chills, No night sweats PULMONARY: No productive cough, ++ shortness of breath CARDIAC: No chest pain, No palpitations GI: No vomiting, No diarrhea , No melena_or_BRBPR : No dysuria, No hematuria, No discharge NEURO: No new_focal_weakness_or_numbness, No confusion, No vision changes 14 point Review of Systems is otherwise negative except per HPI Physical Exam: GENERAL: Awake_alert_ nontoxic, no acute distress Spo2 97% on RA -normal EYES: Extraocular muscles are intact. Conjunctivae clear. Lids without swelling ENT: External nose and ear normal_in_appearance. Oropharynx clear. Head_a traumatic, Moist_oral_mucosa NECK: No JVD. No meningismus. No thyromegaly. Supple. Trachea midline RESP: Normal respiratory effort. Symmetric rise. No stridor. Clear_to_auscultation_No_rales_No_wheezes CARDIAC: Regular rate and regular rhytm. No_significant pedal edema. ABDOMEN: Soft. Nondistended. Nontender_No_rebound_or_guarding. MSK: Normal muscle tone, without rigidity. Extremities without asymmetric deformity or swelling. SKIN: Warm and dry. No visible cyanosis or pallor NEUROLOGIC: Alert, oriented x3. Motor_and_sensation_grossly_intact. No truncal ataxia. Gait_normal Psych: Normal mood and affect, normal judgment and insight - COORDINATION OF CARE Case was discussed with: Patient , Patient's Physician Any labs and imaging that were ordered were interpreted as part of the medical decision making: Medical Decision Making/Plan: Differential includes CHF, pulmonary edema, pulmonary embolism, pneumonia, pleural effusions, pneumothorax, among others. EKG shows normal sinus rhythm with sinus arrhythmia. Without any obvious signs of ischemia. CXR shows no evidence of pneumonia, but does have minimal interstitial edema. Troponin was elevated at 0.082. Patient received aspirin and nitroglycerin. I suspect that his lower extremity edema is secondary to diastolic heart failure versus deconditioning and venous stasis. Symptoms are not likely to be due to pulmonary embolism, the patient has no significant PE risk factors and has a more likely alternate cause of their symptoms, given their chest xray findings, lung exam and presentation so workup was deferred and not pursued. Admit to telemetry for NSTEMI I spoke with Dr. Amos, and reviewed the patients presentation, workup, results, and treatment. They will admit the patient for further care and evaluation, and assume care of the patient at this time. Allergies: Coded Allergies: No Known Allergies (Unverified , 04/09/18) COVID-19 Screening Contact w/high risk pt: No Experienced COVID-19 symptoms?: No COVID-19 Testing performed [employer]: No Nursing Documentation-PMH Hx Hypertension: No Hx Pacemaker: No Hx COPD: No Hx Diabetes: No - family hx Hx Cancer: No - family hx Hx Gastrointestinal Problems: No Hx Dialysis: No Hx Neurological Problems: No Hx Cerebrovascular Accident: Yes Hx Seizures: No Physical Exam Vital Signs Date Time Temp Pulse Resp B/P (MAP) Pulse Ox O2 Delivery O2 Flow Rate FiO2 08/09/20 00:23 97.9 80 20 140/85 (103) 92 Room Air Sp02 EP Interpretation: reviewed, normal Procedures Critical Care Time Critical Care Time Critical Care Statement Organ systems at risk include: Cardiac, circulatory Critical care performed for 45 minutes. Time is exclusive of separately billable procedures. Time includes: direct patient care, continuous monitoring and multiple patient reassessment, coordination of patient care, review of patient's medical records, medical consultation, family consultation regarding treatment decisions and documentation of patient care. Medical Decision Making Diagnostic Impression: Primary Impression: NSTEMI (non-ST elevated myocardial infarction) Additional Impressions: Lower extremity edema HTN (hypertension) CAD (coronary artery disease) Stented coronary artery EKG Diagnostic Results CHELY De Guzman 12-lead EKG (interpreted by me) Time: 43 Indication: Rhythm analysis Tracing visualized and Interpreted by me. Rhythm: Normal sinus rhythm Rate: 75 bpm QTc: 419 Morphology: No_significant_ST_elevations_or_depressions, No STEMI Impression: Normal_sinus_rhythm_without_significant_abnormality Incomplete right bundle branch block. Rhythm Strip Diag. Results Rhythm Strip Time: 02:21 EP Interpretation: yes Rate: 72 Rhythm: NSR, no PVC's, no ectopy Chest X-Ray Diagnostic Results Chest X-Ray Diagnostic Results : CHELY De Guzman Chest X-Ray: Views: [ 1 ] view(s) Indication: Chest pain Findings: Normal heart size. Mediastinum normal. No infiltrate. Impression: No acute disease The X-ray(s) were independently viewed and interpreted contemporaneously Electronically signed by Jud hernandez DO Reevaluation Time: 02:21 Last Vital Signs Date Time Temp Pulse Resp B/P (MAP) Pulse Ox O2 Delivery O2 Flow Rate FiO2 08/09/20 01:24 97.9 82 20 112/78 98 Room Air Status: improved Disposition: ADMITTED INPATIENT Admit Decision Time: 02:21 Referrals: NOT CHOSEN [facility]/,REFERRING (PCP) Jud Shin D.O. Aug 09, 2020 02:21
[2020-08-09] MEDS ORDERED: PLAVIX75 MG ORAL (05:54)
[2020-08-09] MEDS ORDERED: ATORVASTATIN CA20 MG ORAL (05:54)
[2020-08-09] MEDS ORDERED: ASPIRIN81 MG ORAL (05:54)
[2020-08-09] MEDS ORDERED: Acetaminophen 500mg (ES) tab ORAL PRN (06:30)
[2020-08-09 08:42] LABS: BASOPHILS % (AUTO) 0.8 % (0.0-2.0); EOSINOPHILS % (AUTO) 1.6 % (0.0-3.0); HEMATOCRIT 40.1 % (42.0-52.0); HEMOGLOBIN 14.1 G/DL (14.2-18.0); LYMPHOCYTES % (AUTO) 22.1 % (20.0-45.0); MEAN CORPUSCULAR VOLUME 90 FL (80-99); MONOCYTES % (AUTO) 6.7 % (1.0-10.0); NEUTROPHILS % (AUTO) 68.8 % (45.0-75.0); PLATELET COUNT 214 K/UL (150-450); RED BLOOD COUNT 4.45 M/UL (4.70-6.10); RED CELL DISTRIBUTION WIDTH 12.7 % (11.6-14.8)
[2020-08-09] MEDS: Aspirin Baby 81mg ORAL SCH (08:44)
--- NOTE | 2020-08-09 09:06 | Consultation ---
History of Present Illness General Chief Complaint: Edema Present Illness Allergies: Coded Allergies: No Known Allergies (Unverified , 04/09/18) Medication History Scheduled Aspirin* (Aspirin*), 81 MG ORAL DAILY, (Reported) Atorvastatin Calcium* (Atorvastatin Calcium*), 20 MG ORAL BEDTIME, (Reported) Clopidogrel Bisulfate* (Plavix*), 75 MG ORAL DAILY, (Reported) Discontinued Medications Acetaminophen With Codeine (T#3) (Tylenol #3 Tab*), 1 TAB ORAL Q8H PRN for For Pain Discontinued Reason: MD discontinued med Acetaminophen With Codeine (T#3) (Tylenol #3 Tab*), 1 TAB ORAL Q8H PRN for For Pain Discontinued Reason: MD discontinued med Amoxicillin/Potassium Clav 875-125* (Augmentin 875-125 Tablet*), 1 TAB ORAL TWICE A DAY Discontinued Reason: MD discontinued med Cephalexin* (Keflex*), 500 MG ORAL Q6H Discontinued Reason: MD discontinued med Cephalexin* (Keflex*), 500 MG ORAL EVERY 12 HOURS Discontinued Reason: MD discontinued med Cyclopentolate Hcl (Cyclopentolate Hcl), 2 DROP OP BID Discontinued Reason: MD discontinued med Famotidine (Pepcid), 40 MG PO DAILY Discontinued Reason: MD discontinued med Flurbiprofen Sodium (Ocufen), 1 DROP OP TID Discontinued Reason: MD discontinued med Ibuprofen (Motrin), 600 MG ORAL Q8H PRN for For Pain Discontinued Reason: MD discontinued med Ibuprofen (Motrin), 600 MG ORAL Q8H PRN for For Pain Discontinued Reason: MD discontinued med Metronidazole* (Flagyl*), 500 MG ORAL BID Discontinued Reason: MD discontinued med No Known Medications* (NKM - No Known Medications*), 0 ., (Reported) Discontinued Reason: MD discontinued med No Known Medications* (NKM - No Known Medications*), 0 ., (Reported) Discontinued Reason: MD discontinued med Tobramycin (Tobramycin), 2 DROP OPHTHALM THREE TIMES A DAY Discontinued Reason: MD discontinued med Tramadol Hcl* (Ultram*), 50 MG ORAL Q6H PRN for For Pain Discontinued Reason: MD discontinued med Patient History Healthcare decision maker Resuscitation status Advanced Directive on File Physical Exam Last 24 Hour Vital Signs Date Time Temp Pulse Resp B/P (MAP) Pulse Ox O2 Delivery O2 Flow Rate FiO2 9/23/20 08:00 97.5 71 18 112/65 (81) 95 08/09/20 06:39 81 08/09/20 06:37 97.5 70 19 120/66 (84) 97 08/09/20 06:05 98.0 86 18 121/87 98 Room Air 08/09/20 05:30 97.9 72 20 127/76 98 Room Air 08/09/20 03:30 97.9 78 20 128/85 98 Room Air 08/09/20 02:28 131/87 08/09/20 01:24 97.9 82 20 112/78 98 Room Air 08/09/20 01:24 82 20 Room Air 08/09/20 00:23 97.9 80 20 140/85 (103) 92 Room Air Intake and Output 08/08/20 08/09/20 19:00 07:00 Intake Total 400 ml Balance 400 ml Intake Oral 400 ml Laboratory Tests Test 08/09/20 01:10 08/09/20 08:20 White Blood Count 8.3 K/UL (4.8-10.8) 7.0 K/UL (4.8-10.8) Red Blood Count 4.38 M/UL (4.70-6.10) L 4.45 M/UL (4.70-6.10) L Hemoglobin 14.3 G/DL (14.2-18.0) 14.1 G/DL (14.2-18.0) L Hematocrit 39.1 % (42.0-52.0) L 40.1 % (42.0-52.0) L Mean Corpuscular Volume 89 FL (80-99) 90 FL (80-99) Mean Corpuscular Hemoglobin 32.6 PG (27.0-31.0) H 31.6 PG (27.0-31.0) H Mean Corpuscular Hemoglobin Concent 36.5 G/DL (32.0-36.0) H 35.0 G/DL (32.0-36.0) Red Cell Distribution Width 12.4 % (11.6-14.8) 12.7 % (11.6-14.8) Platelet Count 199 K/UL (150-450) 214 K/UL (150-450) Mean Platelet Volume 7.8 FL (6.5-10.1) 6.9 FL (6.5-10.1) Neutrophils (%) (Auto) 69.9 % (45.0-75.0) 68.8 % (45.0-75.0) Lymphocytes (%) (Auto) 21.1 % (20.0-45.0) 22.1 % (20.0-45.0) Monocytes (%) (Auto) 6.5 % (1.0-10.0) 6.7 % (1.0-10.0) Eosinophils (%) (Auto) 1.6 % (0.0-3.0) 1.6 % (0.0-3.0) Basophils (%) (Auto) 0.8 % (0.0-2.0) 0.8 % (0.0-2.0) Prothrombin Time 10.8 SEC (9.30-11.50) Prothromb Time International Ratio 1.0 (0.9-1.1) Activated Partial Thromboplast Time 29 SEC (23-33) Sodium Level 138 MMOL/L (136-145) Pending Potassium Level 3.5 MMOL/L (3.5-5.1) Pending Chloride Level 103 MMOL/L (98-107) Pending Carbon Dioxide Level 27 MMOL/L (21-32) Pending Anion Gap 8 mmol/L (5-15) Blood Urea Nitrogen 10 mg/dL (7-18) Pending Creatinine 1.1 MG/DL (0.55-1.30) Pending Estimat Glomerular Filtration Rate > 60 mL/min (>60) Pending Glucose Level 98 MG/DL (74-106) Pending Calcium Level 8.5 MG/DL (8.5-10.1) Pending Total Bilirubin 1.2 MG/DL (0.2-1.0) H Pending Direct Bilirubin 0.3 MG/DL (0.0-0.3) Aspartate Amino Transf (AST/SGOT) 22 U/L (15-37) Pending Alanine Aminotransferase (ALT/SGPT) 26 U/L (12-78) Pending Alkaline Phosphatase 70 U/L (46-116) Pending Troponin I 0.082 ng/mL (0.000-0.056) Pending Pro-B-Type Natriuretic Peptide 16 pg/mL (0-125) Total Protein 6.7 G/DL (6.4-8.2) Pending Albumin 3.8 G/DL (3.4-5.0) Pending Globulin 2.9 g/dL Pending Albumin/Globulin Ratio 1.3 (1.0-2.7) Lipase 87 U/L (73-393) Microbiology Date/Time Source Procedure Growth Status 08/09/20 00:00 Nasopharynx SARS-CoV-2 RdRp Gene Assay - Final Complete Height (Feet): 5 Height (Inches): 11.00 Weight (Pounds): 203 Medications Current Medications Medications (Trade) Dose Ordered Sig/Sony Route PRN Reason Start Time Stop Time Status Last Admin Dose Admin Acetaminophen (Tylenol) 500 mg Q4H PRN ORAL Mild Pain (Pain Scale 1-3) 08/09/20 06:30 09/08/20 06:29 Aspirin (ASA) 81 mg DAILY ORAL 08/09/20 09:00 09/23/20 08:59 08/09/20 08:44 Atorvastatin Calcium (Lipitor) 20 mg BEDTIME ORAL 08/09/20 21:00 11/07/20 20:59 Clopidogrel Bisulfate (Plavix) 75 mg DAILY ORAL 08/09/20 09:00 09/08/20 08:59 08/09/20 08:43 Evens Bai MD Aug 09, 2020 09:06
--- NOTE | 2020-08-09 09:12 | Consultation ---
History of Present Illness General Chief Complaint: Edema Present Illness Allergies: Coded Allergies: No Known Allergies (Unverified , 04/09/18) Medication History Scheduled Aspirin* (Aspirin*), 81 MG ORAL DAILY, (Reported) Atorvastatin Calcium* (Atorvastatin Calcium*), 20 MG ORAL BEDTIME, (Reported) Clopidogrel Bisulfate* (Plavix*), 75 MG ORAL DAILY, (Reported) Discontinued Medications Acetaminophen With Codeine (T#3) (Tylenol #3 Tab*), 1 TAB ORAL Q8H PRN for For Pain Discontinued Reason: MD discontinued med Acetaminophen With Codeine (T#3) (Tylenol #3 Tab*), 1 TAB ORAL Q8H PRN for For Pain Discontinued Reason: MD discontinued med Amoxicillin/Potassium Clav 875-125* (Augmentin 875-125 Tablet*), 1 TAB ORAL TWICE A DAY Discontinued Reason: MD discontinued med Cephalexin* (Keflex*), 500 MG ORAL Q6H Discontinued Reason: MD discontinued med Cephalexin* (Keflex*), 500 MG ORAL EVERY 12 HOURS Discontinued Reason: MD discontinued med Cyclopentolate Hcl (Cyclopentolate Hcl), 2 DROP OP BID Discontinued Reason: MD discontinued med Famotidine (Pepcid), 40 MG PO DAILY Discontinued Reason: MD discontinued med Flurbiprofen Sodium (Ocufen), 1 DROP OP TID Discontinued Reason: MD discontinued med Ibuprofen (Motrin), 600 MG ORAL Q8H PRN for For Pain Discontinued Reason: MD discontinued med Ibuprofen (Motrin), 600 MG ORAL Q8H PRN for For Pain Discontinued Reason: MD discontinued med Metronidazole* (Flagyl*), 500 MG ORAL BID Discontinued Reason: MD discontinued med No Known Medications* (NKM - No Known Medications*), 0 ., (Reported) Discontinued Reason: MD discontinued med No Known Medications* (NKM - No Known Medications*), 0 ., (Reported) Discontinued Reason: MD discontinued med Tobramycin (Tobramycin), 2 DROP OPHTHALM THREE TIMES A DAY Discontinued Reason: MD discontinued med Tramadol Hcl* (Ultram*), 50 MG ORAL Q6H PRN for For Pain Discontinued Reason: MD discontinued med Patient History Healthcare decision maker Resuscitation status Advanced Directive on File Physical Exam Last 24 Hour Vital Signs Date Time Temp Pulse Resp B/P (MAP) Pulse Ox O2 Delivery O2 Flow Rate FiO2 9/23/20 08:00 97.5 71 18 112/65 (81) 95 08/09/20 06:39 81 08/09/20 06:37 97.5 70 19 120/66 (84) 97 08/09/20 06:05 98.0 86 18 121/87 98 Room Air 08/09/20 05:30 97.9 72 20 127/76 98 Room Air 08/09/20 03:30 97.9 78 20 128/85 98 Room Air 08/09/20 02:28 131/87 08/09/20 01:24 97.9 82 20 112/78 98 Room Air 08/09/20 01:24 82 20 Room Air 08/09/20 00:23 97.9 80 20 140/85 (103) 92 Room Air Intake and Output 08/08/20 08/09/20 19:00 07:00 Intake Total 400 ml Balance 400 ml Intake Oral 400 ml Laboratory Tests Test 08/09/20 01:10 08/09/20 08:20 White Blood Count 8.3 K/UL (4.8-10.8) 7.0 K/UL (4.8-10.8) Red Blood Count 4.38 M/UL (4.70-6.10) L 4.45 M/UL (4.70-6.10) L Hemoglobin 14.3 G/DL (14.2-18.0) 14.1 G/DL (14.2-18.0) L Hematocrit 39.1 % (42.0-52.0) L 40.1 % (42.0-52.0) L Mean Corpuscular Volume 89 FL (80-99) 90 FL (80-99) Mean Corpuscular Hemoglobin 32.6 PG (27.0-31.0) H 31.6 PG (27.0-31.0) H Mean Corpuscular Hemoglobin Concent 36.5 G/DL (32.0-36.0) H 35.0 G/DL (32.0-36.0) Red Cell Distribution Width 12.4 % (11.6-14.8) 12.7 % (11.6-14.8) Platelet Count 199 K/UL (150-450) 214 K/UL (150-450) Mean Platelet Volume 7.8 FL (6.5-10.1) 6.9 FL (6.5-10.1) Neutrophils (%) (Auto) 69.9 % (45.0-75.0) 68.8 % (45.0-75.0) Lymphocytes (%) (Auto) 21.1 % (20.0-45.0) 22.1 % (20.0-45.0) Monocytes (%) (Auto) 6.5 % (1.0-10.0) 6.7 % (1.0-10.0) Eosinophils (%) (Auto) 1.6 % (0.0-3.0) 1.6 % (0.0-3.0) Basophils (%) (Auto) 0.8 % (0.0-2.0) 0.8 % (0.0-2.0) Prothrombin Time 10.8 SEC (9.30-11.50) Prothromb Time International Ratio 1.0 (0.9-1.1) Activated Partial Thromboplast Time 29 SEC (23-33) Sodium Level 138 MMOL/L (136-145) Pending Potassium Level 3.5 MMOL/L (3.5-5.1) Pending Chloride Level 103 MMOL/L (98-107) Pending Carbon Dioxide Level 27 MMOL/L (21-32) Pending Anion Gap 8 mmol/L (5-15) Blood Urea Nitrogen 10 mg/dL (7-18) Pending Creatinine 1.1 MG/DL (0.55-1.30) Pending Estimat Glomerular Filtration Rate > 60 mL/min (>60) Pending Glucose Level 98 MG/DL (74-106) Pending Calcium Level 8.5 MG/DL (8.5-10.1) Pending Total Bilirubin 1.2 MG/DL (0.2-1.0) H Pending Direct Bilirubin 0.3 MG/DL (0.0-0.3) Aspartate Amino Transf (AST/SGOT) 22 U/L (15-37) Pending Alanine Aminotransferase (ALT/SGPT) 26 U/L (12-78) Pending Alkaline Phosphatase 70 U/L (46-116) Pending Troponin I 0.082 ng/mL (0.000-0.056) Pending Pro-B-Type Natriuretic Peptide 16 pg/mL (0-125) Total Protein 6.7 G/DL (6.4-8.2) Pending Albumin 3.8 G/DL (3.4-5.0) Pending Globulin 2.9 g/dL Pending Albumin/Globulin Ratio 1.3 (1.0-2.7) Lipase 87 U/L (73-393) Microbiology Date/Time Source Procedure Growth Status 08/09/20 00:00 Nasopharynx SARS-CoV-2 RdRp Gene Assay - Final Complete Height (Feet): 5 Height (Inches): 11.00 Weight (Pounds): 203 Medications Current Medications Medications (Trade) Dose Ordered Sig/Sony Route PRN Reason Start Time Stop Time Status Last Admin Dose Admin Acetaminophen (Tylenol) 500 mg Q4H PRN ORAL Mild Pain (Pain Scale 1-3) 08/09/20 06:30 09/08/20 06:29 Aspirin (ASA) 81 mg DAILY ORAL 08/09/20 09:00 09/23/20 08:59 08/09/20 08:44 Atorvastatin Calcium (Lipitor) 20 mg BEDTIME ORAL 08/09/20 21:00 11/07/20 20:59 Clopidogrel Bisulfate (Plavix) 75 mg DAILY ORAL 08/09/20 09:00 09/08/20 08:59 08/09/20 08:43 Assessment/Plan Assessment/Plan: Hematology Consultation REQ MD: Drew Gibson Chief Complaint: Edema RFC: r/o dvt DOS 08/09/20 HPI 59-year-old male with history of CAD status post stent x3, hypertension, dyslipidemia presents with complaints of generalized weakness and lower extremity edema that has been progressive for the last several weeks. Also endorses dyspnea on exertion but denies chest pain. He states he has been noncompliant with his medications. Denies recent history of cardiac evaluation or echocardiogram. Symptoms do not feel similar to previous [place]. Patient denies fevers, chills, nausea, vomiting, diarrhea, shortness of breath, cough, hemoptysis, or history of blood clot. The patient's symptoms were gradual onset, severity was moderate, duration since 2 days. Duplex lower ext has been ordered Past medical history: CAD, CHF, hypertension, dyslipidemia Past surgical history: Stent x3 Smoking: Positive Alcohol use: Denies Drug use: Marijuana Review of systems: CONST: No fevers or chills, No night sweats PULMONARY: No productive cough, ++ shortness of breath CARDIAC: No chest pain, No palpitations GI: No vomiting, No diarrhea , No melena_or_BRBPR : No dysuria, No hematuria, No discharge NEURO: No new_focal_weakness_or_numbness, No confusion, No vision changes Physical Exam: Vitals: reviewed General: NAD HEENT: nc, at Neck: supple Chest: clear breath sounds bilaterally Cardiovascular: RRR, no s3, s4 Abdomen: soft, nontender, nd Extremities: 1-2+ edema Neuro: alert and oriented Labs noted Troponin was elevated at 0.082. Imaing: CXR shows no evidence of pneumonia, but does have minimal interstitial edema. EKG shows normal sinus rhythm with sinus arrhythmia. Without any obvious signs of ischemia. Assessment and REcs # Lower extremity edema - here to r/o dvt, also r/o chf --> duplex lower leg ordered --> in er, received aspirin and nitroglycerin. --> cards eval for chf # NSTEMI --> asa and plavix --> per cards # HL --> on lipitor # Lower extremity edema --> consider diuresis as per cards # HTN (hypertension) --> sbp goal <130 # CAD (coronary artery disease) # Stented coronary artery # Dvt ppx scds Appreciate consultation and dw Evens Edwards MD Aug 09, 2020 09:12
[2020-08-09 09:21] LABS: ALANINE AMINOTRANSFERASE 24 U/L (12-78); ALBUMIN 3.7 G/DL (3.4-5.0); ALBUMIN/GLOBULIN RATIO 1.1 (1.0-2.7); ALKALINE PHOSPHATASE 65 U/L (46-116); ANION GAP 8 mmol/L (5-15); ASPARTATE AMINO TRANSFERASE 17 U/L (15-37); BILIRUBIN,TOTAL 1.5 MG/DL (0.2-1.0); BLOOD UREA NITROGEN 9 mg/dL (7-18); CALCIUM 8.7 MG/DL (8.5-10.1); CARBON DIOXIDE 28 MMOL/L (21-32); CHLORIDE 106 MMOL/L (98-107); POTASSIUM 3.9 MMOL/L (3.5-5.1); SODIUM 142 MMOL/L (136-145)
[2020-08-09 09:23] LABS: BILIRUBIN,DIRECT 0.3 MG/DL (0.0-0.3)
--- NOTE | 2020-08-09 10:43 | Diagnostic Imaging Report ---
Procedure: XRAY Chest 1v Reason for study: Reason For Exam: SOB Comparison films: 04/10/2018. FINDINGS: A single one view chest is obtained. Vascularity is normal. The lung avina are clear bilaterally. Cardiac and mediastinal silhouette are within normal limits. CP angles are sharp. The bony thorax appear unremarkable. IMPRESSION: NO ACUTE CARDIOPULMONARY DISEASE.
--- NOTE | 2020-08-09 12:37 | Cardiac Electrophysiology PN ---
Subjective Subjective Patient seen and examined. [facility] records from 12/2019 and 01/2020( had Stent in LAD and OM) reviewed Was also at [facility] ER 07/27/2020 and was DCed [id number] Objective Last 24 Hour Vital Signs Date Time Temp Pulse Resp B/P (MAP) Pulse Ox O2 Delivery O2 Flow Rate FiO2 08/09/20 08:00 72 08/09/20 08:00 97.5 71 18 112/65 (81) 95 08/09/20 06:39 81 08/09/20 06:37 97.5 70 19 120/66 (84) 97 08/09/20 06:05 98.0 86 18 121/87 98 Room Air 08/09/20 05:30 97.9 72 20 127/76 98 Room Air 08/09/20 03:30 97.9 78 20 128/85 98 Room Air 08/09/20 02:28 131/87 08/09/20 01:24 97.9 82 20 112/78 98 Room Air 08/09/20 01:24 82 20 Room Air 08/09/20 00:23 97.9 80 20 140/85 (103) 92 Room Air Intake and Output 08/08/20 08/09/20 19:00 07:00 Intake Total 400 ml Balance 400 ml Intake Oral 400 ml Laboratory Tests Test 08/09/20 01:10 08/09/20 08:20 White Blood Count 8.3 K/UL (4.8-10.8) 7.0 K/UL (4.8-10.8) Red Blood Count 4.38 M/UL (4.70-6.10) L 4.45 M/UL (4.70-6.10) L Hemoglobin 14.3 G/DL (14.2-18.0) 14.1 G/DL (14.2-18.0) L Hematocrit 39.1 % (42.0-52.0) L 40.1 % (42.0-52.0) L Mean Corpuscular Volume 89 FL (80-99) 90 FL (80-99) Mean Corpuscular Hemoglobin 32.6 PG (27.0-31.0) H 31.6 PG (27.0-31.0) H Mean Corpuscular Hemoglobin Concent 36.5 G/DL (32.0-36.0) H 35.0 G/DL (32.0-36.0) Red Cell Distribution Width 12.4 % (11.6-14.8) 12.7 % (11.6-14.8) Platelet Count 199 K/UL (150-450) 214 K/UL (150-450) Mean Platelet Volume 7.8 FL (6.5-10.1) 6.9 FL (6.5-10.1) Neutrophils (%) (Auto) 69.9 % (45.0-75.0) 68.8 % (45.0-75.0) Lymphocytes (%) (Auto) 21.1 % (20.0-45.0) 22.1 % (20.0-45.0) Monocytes (%) (Auto) 6.5 % (1.0-10.0) 6.7 % (1.0-10.0) Eosinophils (%) (Auto) 1.6 % (0.0-3.0) 1.6 % (0.0-3.0) Basophils (%) (Auto) 0.8 % (0.0-2.0) 0.8 % (0.0-2.0) Prothrombin Time 10.8 SEC (9.30-11.50) Prothromb Time International Ratio 1.0 (0.9-1.1) Activated Partial Thromboplast Time 29 SEC (23-33) Sodium Level 138 MMOL/L (136-145) 142 MMOL/L (136-145) Potassium Level 3.5 MMOL/L (3.5-5.1) 3.9 MMOL/L (3.5-5.1) Chloride Level 103 MMOL/L (98-107) 106 MMOL/L (98-107) Carbon Dioxide Level 27 MMOL/L (21-32) 28 MMOL/L (21-32) Anion Gap 8 mmol/L (5-15) 8 mmol/L (5-15) Blood Urea Nitrogen 10 mg/dL (7-18) 9 mg/dL (7-18) Creatinine 1.1 MG/DL (0.55-1.30) 1.0 MG/DL (0.55-1.30) Estimat Glomerular Filtration Rate > 60 mL/min (>60) > 60 mL/min (>60) Glucose Level 98 MG/DL (74-106) 99 MG/DL (74-106) Calcium Level 8.5 MG/DL (8.5-10.1) 8.7 MG/DL (8.5-10.1) Total Bilirubin 1.2 MG/DL (0.2-1.0) H 1.5 MG/DL (0.2-1.0) H Direct Bilirubin 0.3 MG/DL (0.0-0.3) 0.3 MG/DL (0.0-0.3) Aspartate Amino Transf (AST/SGOT) 22 U/L (15-37) 17 U/L (15-37) Alanine Aminotransferase (ALT/SGPT) 26 U/L (12-78) 24 U/L (12-78) Alkaline Phosphatase 70 U/L (46-116) 65 U/L (46-116) Troponin I 0.082 ng/mL (0.000-0.056) 0.051 ng/mL (0.000-0.056) Pro-B-Type Natriuretic Peptide 16 pg/mL (0-125) Total Protein 6.7 G/DL (6.4-8.2) 7.1 G/DL (6.4-8.2) Albumin 3.8 G/DL (3.4-5.0) 3.7 G/DL (3.4-5.0) Globulin 2.9 g/dL 3.4 g/dL Albumin/Globulin Ratio 1.3 (1.0-2.7) 1.1 (1.0-2.7) Lipase 87 U/L (73-393) Microbiology Date/Time Source Procedure Growth Status 08/09/20 00:00 Nasopharynx SARS-CoV-2 RdRp Gene Assay - Final Complete Stephen Fallon MD Aug 09, 2020 12:37
[2020-08-09] MEDS ORDERED: Lexiscan 0.4mg/5ml syringe IV PRN (12:41)
--- NOTE | 2020-08-09 13:28 | Diagnostic Imaging Report ---
Indication: Bilateral leg pain Technique: Grayscale and duplex images of the bilateral lower extremity veins Comparison: None Findings: Bilaterally, grayscale and duplex images demonstrate no evidence of intraluminal thrombus. Normal phasic Doppler waveforms, demonstrating normal augmentation response and no evidence of valvular insufficiency. Greater saphenous vein(s) and tibial veins are patent. Normal compressibility. Impression: Negative for evidence of lower extremity deep venous thrombosis bilaterally
--- NOTE | 2020-08-09 16:14 | Consultation ---
DATE OF CONSULTATION: 08/09/2020 CARDIOLOGY CONSULTATION CONSULTING PHYSICIAN: Stephen Fallon MD. REFERRING PHYSICIAN: Drew Amos MD. REASON FOR CONSULTATION: Chest pain in a patient with history of coronary artery disease. HISTORY OF PRESENT ILLNESS: The patient is a 59-year-old homeless gentleman with history of hypertension and coronary artery disease status post stent placement at [facility] for 100% occlusion of the LAD bifurcation in December of 2019. The patient also presented in January of 2020 to [facility] with chest pain and underwent cardiac catheterization and underwent placement of a stent in the large first obtuse marginal branch. The patient was then discharged. The patient presented to the emergency room complaining of chest pain again as well as weakness. The patient was admitted and a Cardiology consultation was obtained for further evaluation and management. REVIEW OF SYSTEMS: Negative other than what was mentioned in the history of present illness. PAST MEDICAL HISTORY: 1. Hypertension. 2. Hyperlipidemia. 3. Coronary artery disease. 4. History of prior stent in LAD in December 2019 and in the circumflex in January of 2020. 5. Hyperlipidemia. 6. History of ischemic cardiomyopathy. FAMILY HISTORY: Noncontributory. SOCIAL HISTORY: He is homeless. He continues to smoke. PHYSICAL EXAMINATION: VITAL SIGNS: Show blood pressure of 112/65, pulse 71, respirations 18, and temperature 97.5. HEAD AND NECK: No JVD. LUNGS: Clear. CARDIOVASCULAR: Regular S1 and S2 with no gallop or murmur. ABDOMEN: Soft. EXTREMITIES: No pitting edema. LABORATORY DATA: Labs show white count of 7, hemoglobin 14.1, hematocrit of 40, and platelet count is 214. Sodium 142, potassium 3.9, BUN of 9, and creatinine of 1. ASSESSMENT AND PLAN: 1. Chest pain in a patient with history of coronary artery disease and prior LAD stent in December and prior obtuse marginal stent in January of 2020. First and third troponin are negative. The middle troponin was only mildly elevated at 0.082. Currently, he does not have any chest pain. EKG does not show any acute ischemic changes. We will get an echocardiogram and schedule the patient for stress test for further evaluation. We will also check urine toxicology screen. We will also resume the patient's aspirin, Plavix, and Lipitor. Add nitroglycerin and beta shelby. 2. Hypertension. Start the patient on metoprolol. 3. Hyperlipidemia, on Lipitor. 4. Lower extremity edema. We will rule out DVT, duplex was ordered and echocardiogram will also be ordered. Start low-dose Lasix as well. Thank you very much for allowing me to participate in the care of this patient. Please do not hesitate to contact me for any questions regarding my evaluation. It is of note that the patient's [facility] records from December as well as January as well as most recent visit just last week to [facility] Emergency Room was reviewed and discussed with the nurse. Stephen Fallon M.D. DR: Yung JOB#: [id number] CC:
[2020-08-09] MEDS ORDERED: Milk of Magnesia 30ml Ud ORAL PRN (17:00)
[2020-08-09] MEDS ORDERED: Bisacodyl EC 5mg tab ORAL PRN (17:00)
--- NOTE | 2020-08-09 19:44 | Consultation ---
DATE OF CONSULTATION: 08/09/2020 PULMONARY CONSULTATION CONSULTING PHYSICIAN: Juan F Quiroga MD. HISTORY OF PRESENT ILLNESS: This is a 59-year-old male, admitted to the hospital with generalized weakness and lower extremity edema. This has been going on for several weeks. He also has dyspnea on exertion. Denies chest pain. Denies cough or phlegm. Denies any fevers. He reports medication noncompliance. He has a history of CAD, status post stent as well as hypertension and hyperlipidemia. Currently, he is undergoing a duplex study of lower extremity. PAST HISTORY: CAD, CHF, hypertension, . PREVIOUS SURGERIES: Cardiac stent. SOCIAL HISTORY: He admits to marijuana and tobacco usage. REVIEW OF SYSTEMS: Denies any headaches, hematemesis, melena, hematochezia, night sweats or weight loss. PHYSICAL EXAMINATION: GENERAL: Reveals a 59-year-old male. HEENT: Unremarkable. LUNGS: Clear breath sounds bilaterally. ABDOMEN: Soft. EXTREMITIES: There is 1+ bilateral edema. LABORATORY DATA: Lab testing is unremarkable except for elevated troponin. Hemoglobin 14. Troponin 0.08. Coags are negative. COVID-19 testing antigen is negative. X-ray chest is negative. IMPRESSION: 1. Bilateral lower extremity edema. 2. CAD. 3. Hypertension. 4. Hyperlipidemia. DISCUSSION: Await duplex lower extremities. We will recommend cardiac evaluation and consideration of 2D echo. We will follow as laser set up operator. Currently saturating well on room air. Juan F Quiroga M.D. DR: ROLY/PURNIMA JOB#: [id number] CC:
[2020-08-09] MEDS: Atorvastatin 20mg tab ORAL SCH (20:27)
[2020-08-09] MEDS: Metoprolol Tartrate 12.5mg TAB ORAL SCH (20:27)
[2020-08-09] MEDS: Docusate 100mg cap ORAL SCH (20:27)
--- NOTE | 2020-08-09 21:29 | History and Physical Report ---
DATE OF ADMISSION: 08/09/2020 HISTORY OF PRESENT ILLNESS: Patient comes in, admitted for non-STEMI. Patient also basically reports chest pain. Patient also has a couple of weeks of pain on both lower extremities. Patient has coronary stent x3. He has been having chest pain for the past 5 days and leg edema for the past couple of days as well. [place] dizzy. Patient also smokes and has history of hypertension. Complaining of shortness of breath as well. Patient is apparently noncompliant with his medications. Denies fever or chills. PAST MEDICAL HISTORY: Significant for hyperlipidemia, CAD, varicose veins, hypertension. PAST SURGICAL HISTORY: Bilateral varicose vein removal, coronary stent x3. ALLERGIES: No known allergies. FAMILY HISTORY: Does have history of heart disease and hypertension. SOCIAL HISTORY: He has history of smoking and history of marijuana use. Denies history of alcohol abuse. MEDICATIONS: Aspirin, Plavix, and Lipitor. REVIEW OF SYSTEMS: HEENT: Denies headaches. RESPIRATORY: Reports shortness of breath for couple days. Denies cough. CARDIOVASCULAR: Reports chest pain for couple of days. No radiation. No orthopnea. GASTROINTESTINAL: Denies nausea, vomiting, or diarrhea. Denies heartburn. EXTREMITIES: Reports lower extremity leg edema. CENTRAL NERVOUS SYSTEM: Denies change in speech pattern. PHYSICAL EXAMINATION: VITAL SIGNS: Temperature is 97.5, pulse is 70, blood pressure 130/66. HEENT: PERRLA. NECK: Supple. No lymphadenopathy. CHEST: Clear to auscultation. CARDIOVASCULAR: Regular rate and rhythm. No murmurs or extra sounds. GASTROINTESTINAL: Soft, nontender, nondistended. Abdomen is soft. EXTREMITIES: 1+ edema. Reflexes equal on both sides. Dorsalis pedis pulses are present. He is able to move his extremities. EKG does not show any significant abnormalities. LABORATORY DATA: WBC of 8.3, hemoglobin of 14.3, platelets of 199. Sodium 138, potassium 3.5, BUN of 10, creatinine 1.1. Troponin 0.082. ASSESSMENT AND PLAN: Non-STEMI, chest pain, shortness of breath, hypertension, leg edema, rule out DVT. I have consulted Dr. Juan F Quiroga, Dr. Fallon, and Dr. Evens Bai to help with the above-mentioned abnormalities and abnormal symptoms as well as abnormal laboratory values. Cardiac workup per Dr. Fallon. Drew Amso M.D. DR: RENUKA JOB#: [id number] CC:
[2020-08-10] VITALS: BP 103/53
[2020-08-10 04:00] VITALS: BP 103/53
[2020-08-10 08:00] VITALS: BP 123/81
--- NOTE | 2020-08-10 08:05 | Hematology/Onc Progress Note ---
Assessment/Plan Assessment/Plan Labs noted Troponin was elevated at 0.082. Imaing: CXR shows no evidence of pneumonia, but does have minimal interstitial edema. EKG shows normal sinus rhythm with sinus arrhythmia. Without any obvious signs of ischemia. Assessment and REcs # Lower extremity edema - here to r/o dvt, also r/o chf --> duplex lower leg ordered-->NEG --> in er, received aspirin and nitroglycerin. --> cards eval for chf # Anemia of chronic disease --> mild at this time --> w/u as needed -> no bleeding is noted # NSTEMI --> asa and plavix --> per cards # HL --> on lipitor # Lower extremity edema --> consider diuresis as per cards # HTN (hypertension) --> sbp goal <130 # CAD (coronary artery disease) # Stented coronary artery --> plavix, asa, Lipitor # Dvt ppx scds Appreciate consultation and dw RN Subjective Constitutional: Denies: no symptoms, chills, fever, malaise, weakness, other HEENT: Denies: no symptoms, eye pain, blurred vision, tearing, double vision, ear pain, ear discharge, nose pain, nose congestion, throat pain, throat swelling, mouth pain, mouth swelling, other Cardiovascular: Denies: no symptoms, chest pain, edema, irregular heart rate, lightheadedness, palpitations, syncope, other Respiratory: Denies: no symptoms, cough, shortness of breath, SOB with excertion, SOB at rest, sputum, wheezing, other Gastrointestinal/Abdominal: Denies: no symptoms, abdomen distended, abdominal pain, black stools, tarry stools, blood in stool, constipated, diarrhea, diffi culty swallowing, nausea, poor appetite, poor fluid intake, rectal bleeding, vomiting, other Genitourinary: Denies: no symptoms, burning, discharge, frequency, flank pain, hematuria, incontinence, pain, urgency, other Neurologic/Psychiatric: Denies: no symptoms, anxiety, depressed, emotional problems, headache, numbness, paresthesia, pre-existing deficit, seizure, tingling, tremors, weakness, other Endocrine: Denies: no symptoms, excessive sweating, flushing, intolerance to cold, intolerance to heat, increased hunger, increased thirst, increased urine, unexplained weight gain, unexplained weight loss, other Allergies: Coded Allergies: No Known Allergies (Unverified , 04/09/18) Subjective 08/10 duplex of lower ext is negative, erica rn, no events, labs are noted Objective Objective Current Medications Medications (Trade) Dose Ordered Sig/Sony Route PRN Reason Start Time Stop Time Status Last Admin Dose Admin Acetaminophen (Tylenol) 500 mg Q4H PRN ORAL Mild Pain (Pain Scale 1-3) 08/09/20 06:30 09/08/20 06:29 08/09/20 23:34 Aspirin (ASA) 81 mg DAILY ORAL 08/09/20 09:00 09/23/20 08:59 08/09/20 08:44 Atorvastatin Calcium (Lipitor) 20 mg BEDTIME ORAL 08/09/20 21:00 11/07/20 20:59 08/09/20 20:27 Bisacodyl (Dulcolax) 10 mg DAILYPRN PRN ORAL Constipation 08/09/20 17:00 11/07/20 16:59 Clopidogrel Bisulfate (Plavix) 75 mg DAILY ORAL 08/09/20 09:00 09/08/20 08:59 08/09/20 08:43 Docusate Sodium (Colace) 100 mg TWICE A DAY ORAL 08/09/20 21:00 09/08/20 20:59 08/09/20 20:27 Magnesium Hydroxide (Mom) 30 ml Q4H PRN ORAL Constipation 08/09/20 17:00 09/08/20 16:59 Metoprolol Tartrate (Lopressor) 12.5 mg Q12HR ORAL 08/09/20 21:00 11/07/20 20:59 08/09/20 20:27 Regadenoson (Lexiscan) 0.4 mg ONCE PRN IV CARDIOLOGY 08/09/20 12:41 08/10/20 23:59 Last 24 Hour Vital Signs Date Time Temp Pulse Resp B/P (MAP) Pulse Ox O2 Delivery O2 Flow Rate FiO2 08/10/20 04:00 94 08/10/20 04:00 98.7 61 20 103/53 (70) 97 08/10/20 00:04 97.9 08/10/20 00:00 70 08/10/20 00:00 98.1 61 20 103/53 (70) 100 08/09/20 21:00 Room Air 08/09/20 20:27 66 122/66 08/09/20 20:00 97.9 66 20 122/66 (84) 97 08/09/20 20:00 90 08/09/20 16:00 97.5 86 18 125/75 (92) 97 08/09/20 16:00 77 08/09/20 12:00 97.7 70 20 107/67 (80) 96 08/09/20 12:00 65 08/09/20 09:00 Room Air 08/09/20 08:00 72 08/09/20 08:00 97.5 71 18 112/65 (81) 95 08/09/20 08:00 Room Air 08/09/20 06:39 81 08/09/20 06:37 97.5 70 19 120/66 (84) 97 08/09/20 06:05 98.0 86 18 121/87 98 Room Air 08/09/20 05:30 97.9 72 20 127/76 98 Room Air 08/09/20 03:30 97.9 78 20 128/85 98 Room Air 08/09/20 02:28 131/87 08/09/20 01:24 97.9 82 20 112/78 98 Room Air 08/09/20 01:24 82 20 Room Air 08/09/20 00:23 97.9 80 20 140/85 (103) 92 Room Air Intake and Output 08/09/20 08/10/20 19:00 07:00 Intake Total 360 ml 720 ml Balance 360 ml 720 ml Intake Oral 360 ml 720 ml # Voids 3 1 Labs Test 08/09/20 01:10 08/09/20 08:20 08/09/20 18:20 White Blood Count 8.3 K/UL (4.8-10.8) 7.0 K/UL (4.8-10.8) Red Blood Count 4.38 M/UL (4.70-6.10) 4.45 M/UL (4.70-6.10) Hemoglobin 14.3 G/DL (14.2-18.0) 14.1 G/DL (14.2-18.0) Hematocrit 39.1 % (42.0-52.0) 40.1 % (42.0-52.0) Mean Corpuscular Volume 89 FL (80-99) 90 FL (80-99) Mean Corpuscular Hemoglobin 32.6 PG (27.0-31.0) 31.6 PG (27.0-31.0) Mean Corpuscular Hemoglobin Concent 36.5 G/DL (32.0-36.0) 35.0 G/DL (32.0-36.0) Red Cell Distribution Width 12.4 % (11.6-14.8) 12.7 % (11.6-14.8) Platelet Count 199 K/UL (150-450) 214 K/UL (150-450) Mean Platelet Volume 7.8 FL (6.5-10.1) 6.9 FL (6.5-10.1) Neutrophils (%) (Auto) 69.9 % (45.0-75.0) 68.8 % (45.0-75.0) Lymphocytes (%) (Auto) 21.1 % (20.0-45.0) 22.1 % (20.0-45.0) Monocytes (%) (Auto) 6.5 % (1.0-10.0) 6.7 % (1.0-10.0) Eosinophils (%) (Auto) 1.6 % (0.0-3.0) 1.6 % (0.0-3.0) Basophils (%) (Auto) 0.8 % (0.0-2.0) 0.8 % (0.0-2.0) Prothrombin Time 10.8 SEC (9.30-11.50) Prothromb Time International Ratio 1.0 (0.9-1.1) Activated Partial Thromboplast Time 29 SEC (23-33) Sodium Level 138 MMOL/L (136-145) 142 MMOL/L (136-145) Potassium Level 3.5 MMOL/L (3.5-5.1) 3.9 MMOL/L (3.5-5.1) Chloride Level 103 MMOL/L (98-107) 106 MMOL/L (98-107) Carbon Dioxide Level 27 MMOL/L (21-32) 28 MMOL/L (21-32) Anion Gap 8 mmol/L (5-15) 8 mmol/L (5-15) Blood Urea Nitrogen 10 mg/dL (7-18) 9 mg/dL (7-18) Creatinine 1.1 MG/DL (0.55-1.30) 1.0 MG/DL (0.55-1.30) Estimat Glomerular Filtration Rate > 60 mL/min (>60) > 60 mL/min (>60) Glucose Level 98 MG/DL (74-106) 99 MG/DL (74-106) Calcium Level 8.5 MG/DL (8.5-10.1) 8.7 MG/DL (8.5-10.1) Total Bilirubin 1.2 MG/DL (0.2-1.0) 1.5 MG/DL (0.2-1.0) Direct Bilirubin 0.3 MG/DL (0.0-0.3) 0.3 MG/DL (0.0-0.3) Aspartate Amino Transf (AST/SGOT) 22 U/L (15-37) 17 U/L (15-37) Alanine Aminotransferase (ALT/SGPT) 26 U/L (12-78) 24 U/L (12-78) Alkaline Phosphatase 70 U/L (46-116) 65 U/L (46-116) Troponin I 0.082 ng/mL (0.000-0.056) 0.051 ng/mL (0.000-0.056) Pro-B-Type Natriuretic Peptide 16 pg/mL (0-125) Total Protein 6.7 G/DL (6.4-8.2) 7.1 G/DL (6.4-8.2) Albumin 3.8 G/DL (3.4-5.0) 3.7 G/DL (3.4-5.0) Globulin 2.9 g/dL 3.4 g/dL Albumin/Globulin Ratio 1.3 (1.0-2.7) 1.1 (1.0-2.7) Lipase 87 U/L (73-393) Urine Opiates Screen Negative (NEGATIVE) Urine Barbiturates Screen Negative (NEGATIVE) Phencyclidine (PCP) Screen Negative (NEGATIVE) Urine Amphetamines Screen Negative (NEGATIVE) Urine Benzodiazepines Screen Negative (NEGATIVE) Urine Cocaine Screen Negative (NEGATIVE) Urine Marijuana (THC) Screen Positive (NEGATIVE) Height (Feet): 5 Height (Inches): 11.00 Weight (Pounds): 203 Objective Physical Exam: Vitals: reviewed General: NAD HEENT: nc, at Neck: supple Chest: clear breath sounds bilaterally Cardiovascular: RRR, no s3, s4 Abdomen: soft, nontender, nd Extremities: 1-2+ edema Neuro: alert and oriented Evens Bai MD Aug 10, 2020 08:05
[2020-08-10] MEDS: Metoprolol Tartrate 12.5mg TAB ORAL SCH ×2 (09:00→21:00)
--- NOTE | 2020-08-10 10:11 | Cardiac Electrophysiology PN ---
Assessment/Plan Assessment/Plan 1. Chest pain in a patient with history of coronary artery disease and prior LAD stent in December and prior obtuse marginal stent in January of 2020. First troponin is mildly elevated and second troponin is negative. The third troponin is pending. Currently, he does not have any chest pain. EKG does not show any acute ischemic changes. Echocardiogram showed EF 60%. Stress test mpending. Continue aspirin, Plavix, and Lipitor, nitroglycerin and beta [place]. 2. Hypertension. Start the patient on metoprolol. 3. Hyperlipidemia, on Lipitor. 4. Lower extremity edema. Echo Nl EF. Duplex no DVT. On low-dose Lasix OLEGARIO RN Subjective Subjective Patient seen and examined. [facility] records from 12/2019 and 01/2020( had Stent in LAD and OM) reviewed No CP or SOB. Stress test pending this am. Objective Last 24 Hour Vital Signs Date Time Temp Pulse Resp B/P (MAP) Pulse Ox O2 Delivery O2 Flow Rate FiO2 08/10/20 08:00 97.2 60 18 123/81 (95) 97 08/10/20 04:00 94 08/10/20 04:00 98.7 61 20 103/53 (70) 97 08/10/20 00:04 97.9 08/10/20 00:00 70 08/10/20 00:00 98.1 61 20 103/53 (70) 100 08/09/20 21:00 Room Air 08/09/20 20:27 66 122/66 08/09/20 20:00 97.9 66 20 122/66 (84) 97 08/09/20 20:00 90 08/09/20 16:00 97.5 86 18 125/75 (92) 97 08/09/20 16:00 77 08/09/20 12:00 97.7 70 20 107/67 (80) 96 08/09/20 12:00 65 Intake and Output 08/09/20 08/10/20 19:00 07:00 Intake Total 360 ml 720 ml Balance 360 ml 720 ml Intake Oral 360 ml 720 ml # Voids 3 1 Laboratory Tests Test 08/09/20 18:20 08/10/20 09:40 Urine Opiates Screen Negative (NEGATIVE) Urine Barbiturates Screen Negative (NEGATIVE) Phencyclidine (PCP) Screen Negative (NEGATIVE) Urine Amphetamines Screen Negative (NEGATIVE) Urine Benzodiazepines Screen Negative (NEGATIVE) Urine Cocaine Screen Negative (NEGATIVE) Urine Marijuana (THC) Screen Positive (NEGATIVE) H Troponin I Pending Microbiology Date/Time Source Procedure Growth Status 08/09/20 00:00 Nasopharynx SARS-CoV-2 RdRp Gene Assay - Final Complete Objective HEAD AND NECK: No JVD. LUNGS: Clear. CARDIOVASCULAR: Regular S1 and S2 with no gallop or murmur. ABDOMEN: Soft. EXTREMITIES: No pitting edema. Stephen Fallon MD Aug 10, 2020 10:11
--- NOTE | 2020-08-10 10:35 | Pulmonology Progress Note ---
Subjective Interval Events: None new Constitutional: Reports: no symptoms HEENT: Repors: no symptoms Respiratory: Reports: no symptoms Cardiovascular: Reports: no symptoms Gastrointestinal/Abdominal: Reports: no symptoms Allergies: Coded Allergies: No Known Allergies (Unverified , 04/09/18) Objective Last 24 Hour Vital Signs Date Time Temp Pulse Resp B/P (MAP) Pulse Ox O2 Delivery O2 Flow Rate FiO2 08/10/20 08:00 97.2 60 18 123/81 (95) 97 08/10/20 04:00 94 08/10/20 04:00 98.7 61 20 103/53 (70) 97 08/10/20 00:04 97.9 08/10/20 00:00 70 08/10/20 00:00 98.1 61 20 103/53 (70) 100 08/09/20 21:00 Room Air 08/09/20 20:27 66 122/66 08/09/20 20:00 97.9 66 20 122/66 (84) 97 08/09/20 20:00 90 08/09/20 16:00 97.5 86 18 125/75 (92) 97 08/09/20 16:00 77 08/09/20 12:00 97.7 70 20 107/67 (80) 96 08/09/20 12:00 65 Intake and Output 08/09/20 08/10/20 19:00 07:00 Intake Total 360 ml 720 ml Balance 360 ml 720 ml Intake Oral 360 ml 720 ml # Voids 3 1 General Appearance: WD/WN HEENT: normocephalic Respiratory: chest wall non-tender, lungs clear Cardiovascular: normal peripheral pulses, normal rate Abdomen: normal bowel sounds Microbiology Date/Time Source Procedure Growth Status 08/09/20 00:00 Nasopharynx SARS-CoV-2 RdRp Gene Assay - Final Complete Laboratory Tests 08/09/20 18:20: Urine Opiates Screen Negative, Urine Barbiturates Screen Negative, Phencyclidine (PCP) Screen Negative, Urine Amphetamines Screen Negative, Urine Benzodiazepines Screen Negative, Urine Cocaine Screen Negative, Urine Marijuana (THC) Screen PositiveH 08/10/20 09:40: Troponin I 0.069H Current Medications Medications (Trade) Dose Ordered Sig/Sony Route PRN Reason Start Time Stop Time Status Last Admin Dose Admin Acetaminophen (Tylenol) 500 mg Q4H PRN ORAL Mild Pain (Pain Scale 1-3) 08/09/20 06:30 09/08/20 06:29 08/09/20 23:34 Aspirin (ASA) 81 mg DAILY ORAL 08/09/20 09:00 09/23/20 08:59 08/09/20 08:44 Atorvastatin Calcium (Lipitor) 20 mg BEDTIME ORAL 08/09/20 21:00 11/07/20 20:59 08/09/20 20:27 Bisacodyl (Dulcolax) 10 mg DAILYPRN PRN ORAL Constipation 08/09/20 17:00 11/07/20 16:59 Clopidogrel Bisulfate (Plavix) 75 mg DAILY ORAL 08/09/20 09:00 09/08/20 08:59 08/09/20 08:43 Docusate Sodium (Colace) 100 mg TWICE A DAY ORAL 08/09/20 21:00 09/08/20 20:59 08/09/20 20:27 Magnesium Hydroxide (Mom) 30 ml Q4H PRN ORAL Constipation 08/09/20 17:00 09/08/20 16:59 Metoprolol Tartrate (Lopressor) 12.5 mg Q12HR ORAL 08/09/20 21:00 11/07/20 20:59 08/09/20 20:27 Regadenoson (Lexiscan) 0.4 mg ONCE PRN IV CARDIOLOGY 08/09/20 12:41 08/10/20 23:59 Assessment/Plan Assessment/Plan IMPRESSION: 1. Bilateral lower extremity edema. 2. CAD. 3. Hypertension. 4. Hyperlipidemia. DISCUSSION: Has negative duplex lower extremities. I will follow as certified breastfeeding educator. Currently saturating well on room air. Cardiac workup Calin Cervantes Omar Syed MD Aug 10, 2020 10:35
[2020-08-10] MEDS: Aspirin Baby 81mg ORAL SCH (10:48)
[2020-08-10] MEDS: Docusate 100mg cap ORAL SCH ×2 (10:48→17:36)
[2020-08-10 12:00] VITALS: BP 129/72
[2020-08-10 16:00] VITALS: BP 118/51
[2020-08-10] MEDS ORDERED: Nitroglycerin Subl 0.4mg tab SL PRN (18:30)
[2020-08-10 20:00] VITALS: BP 121/68
--- NOTE | 2020-08-10 21:37 | General Progress Note ---
Subjective ROS Limited/Unobtainable: Yes Allergies: Coded Allergies: No Known Allergies (Unverified , 04/09/18) Objective Last 24 Hour Vital Signs Date Time Temp Pulse Resp B/P (MAP) Pulse Ox O2 Delivery O2 Flow Rate FiO2 08/10/20 18:41 118/51 08/10/20 16:00 75 08/10/20 16:00 97.7 54 18 118/51 (73) 97 08/10/20 12:00 96.4 63 20 129/72 (91) 98 08/10/20 12:00 62 08/10/20 09:00 Room Air 08/10/20 09:00 62 129/72 08/10/20 08:00 97.2 60 18 123/81 (95) 97 08/10/20 08:00 58 08/10/20 04:00 94 08/10/20 04:00 98.7 61 20 103/53 (70) 97 08/10/20 00:04 97.9 08/10/20 00:00 70 08/10/20 00:00 98.1 61 20 103/53 (70) 100 Intake and Output 08/09/20 08/10/20 18:59 06:59 Intake Total 360 ml 720 ml Balance 360 ml 720 ml Intake Oral 360 ml 720 ml # Voids 3 1 Laboratory Tests 08/10/20 09:40: Troponin I 0.069H 08/10/20 18:30: Troponin I 0.067H Height (Feet): 5 Height (Inches): 11.00 Weight (Pounds): 203 Assessment/Plan Problem List: (1) CAD (coronary artery disease) ICD Codes: I25.10 - Atherosclerotic heart disease of [place] coronary artery without angina pectoris SNOMED: 12177465 (2) Lower extremity edema ICD Codes: R60.0 - Localized edema SNOMED: 767628650, 41182772 (3) HTN (hypertension) ICD Codes: I10 - Essential (primary) hypertension SNOMED: 65470426 (4) NSTEMI (non-ST elevated myocardial infarction) ICD Codes: I21.4 - Non-ST elevation (NSTEMI) myocardial infarction SNOMED: 66365374, 19580814 Status: progressing Assessment/Plan: afebrile cad r/o acs edema r/o chf needs cardiology clearance Drew Amos MD Aug 10, 2020 21:37
[2020-08-10] MEDS: Atorvastatin 20mg tab ORAL SCH (22:16)
[2020-08-11] VITALS: BP 134/64
[2020-08-11 04:00] VITALS: BP 112/73
[2020-08-11 06:39] LABS: BASOPHILS % (AUTO) 0.8 % (0.0-2.0); EOSINOPHILS % (AUTO) 1.3 % (0.0-3.0); HEMATOCRIT 40.8 % (42.0-52.0); HEMOGLOBIN 14.2 G/DL (14.2-18.0); LYMPHOCYTES % (AUTO) 22.2 % (20.0-45.0); MEAN CORPUSCULAR VOLUME 90 FL (80-99); MONOCYTES % (AUTO) 6.5 % (1.0-10.0); NEUTROPHILS % (AUTO) 69.2 % (45.0-75.0); PLATELET COUNT 196 K/UL (150-450); RED BLOOD COUNT 4.51 M/UL (4.70-6.10); RED CELL DISTRIBUTION WIDTH 12.4 % (11.6-14.8); WHITE BLOOD COUNT 7.6 K/UL (4.8-10.8)
--- NOTE | 2020-08-11 06:54 | Pulmonology Progress Note ---
Subjective ROS Limited/Unobtainable: Yes Interval Events: None new Constitutional: Reports: no symptoms HEENT: Repors: no symptoms Respiratory: Reports: no symptoms Cardiovascular: Reports: no symptoms Gastrointestinal/Abdominal: Reports: no symptoms Allergies: Coded Allergies: No Known Allergies (Unverified , 04/09/18) Objective Last 24 Hour Vital Signs Date Time Temp Pulse Resp B/P (MAP) Pulse Ox O2 Delivery O2 Flow Rate FiO2 08/11/20 04:00 62 08/11/20 04:00 97.8 62 18 112/73 (86) 98 08/11/20 00:00 97.5 64 18 134/64 (87) 100 08/11/20 00:00 68 08/10/20 21:00 Room Air 08/10/20 21:00 59 115/60 08/10/20 20:00 66 08/10/20 20:00 97.9 59 18 121/68 (85) 100 08/10/20 18:41 118/51 08/10/20 16:00 75 08/10/20 16:00 97.7 54 18 118/51 (73) 97 08/10/20 12:00 96.4 63 20 129/72 (91) 98 08/10/20 12:00 62 08/10/20 09:00 Room Air 08/10/20 09:00 62 129/72 08/10/20 08:00 97.2 60 18 123/81 (95) 97 08/10/20 08:00 58 Intake and Output 08/10/20 08/11/20 19:00 07:00 Intake Total 360 ml 250 ml Balance 360 ml 250 ml Intake Oral 360 ml 250 ml # Voids 4 2 General Appearance: WD/WN HEENT: normocephalic Respiratory: chest wall non-tender, lungs clear Cardiovascular: normal peripheral pulses, normal rate Abdomen: normal bowel sounds Microbiology Date/Time Source Procedure Growth Status 08/09/20 00:00 Nasopharynx SARS-CoV-2 RdRp Gene Assay - Final Complete Laboratory Tests 08/10/20 09:40: Troponin I 0.069H 08/10/20 18:30: Troponin I 0.067H 08/11/20 06:05: Troponin I [Pending], White Blood Count [Pending], Red Blood Count [Pending], Hemoglobin [Pending], Hematocrit [Pending], Mean Corpuscular Volume [Pending], Mean Corpuscular Hemoglobin [Pending], Mean Corpuscular Hemoglobin Concent [Pending], Red Cell Distribution Width [Pending], Platelet Count [Pending], Mean Platelet Volume [Pending], Neutrophils (%) (Auto) [Pending], Lymphocytes (%) (Auto) [Pending], Monocytes (%) (Auto) [Pending], Eosinophils (%) (Auto) [Pending], Basophils (%) (Auto) [Pending] Current Medications Medications (Trade) Dose Ordered Sig/Sony Route PRN Reason Start Time Stop Time Status Last Admin Dose Admin Acetaminophen (Tylenol) 500 mg Q4H PRN ORAL Mild Pain (Pain Scale 1-3) 08/09/20 06:30 09/08/20 06:29 08/09/20 23:34 Aspirin (ASA) 81 mg DAILY ORAL 08/09/20 09:00 09/23/20 08:59 08/10/20 10:48 Atorvastatin Calcium (Lipitor) 20 mg BEDTIME ORAL 08/09/20 21:00 11/07/20 20:59 08/10/20 22:16 Bisacodyl (Dulcolax) 10 mg DAILYPRN PRN ORAL Constipation 08/09/20 17:00 11/07/20 16:59 Clopidogrel Bisulfate (Plavix) 75 mg DAILY ORAL 08/09/20 09:00 09/08/20 08:59 08/10/20 10:47 Docusate Sodium (Colace) 100 mg TWICE A DAY ORAL 08/09/20 21:00 09/08/20 20:59 08/10/20 17:36 Magnesium Hydroxide (Mom) 30 ml Q4H PRN ORAL Constipation 08/09/20 17:00 09/08/20 16:59 Metoprolol Tartrate (Lopressor) 12.5 mg Q12HR ORAL 08/09/20 21:00 11/07/20 20:59 08/09/20 20:27 Nitroglycerin (Ntg) 0.4 mg Q5M PRN SL Prn Chest Pain 08/10/20 18:30 09/09/20 18:29 08/10/20 18:41 Assessment/Plan Assessment/Plan IMPRESSION: 1. Bilateral lower extremity edema. 2. CAD. 3. Hypertension. 4. Hyperlipidemia. DISCUSSION: Has negative duplex lower extremities. I will follow as wire winder. Currently saturating well on room air. Cardiac workup; await Stepheniscan Juan F Quiroga M.D. Juan F Quiroga MD Aug 11, 2020 06:54
[2020-08-11 08:00] VITALS: BP 124/55
--- NOTE | 2020-08-11 08:24 | Hematology/Onc Progress Note ---
Assessment/Plan Assessment/Plan Labs noted Troponin was elevated at 0.082. Imaing: CXR shows no evidence of pneumonia, but does have minimal interstitial edema. EKG shows normal sinus rhythm with sinus arrhythmia. Without any obvious signs of ischemia. Assessment and REcs # Lower extremity edema - here to r/o dvt, also r/o chf --> duplex lower leg ordered-->NEG --> in er, received aspirin and nitroglycerin. --> cards eval for chf # Anemia of chronic disease --> mild at this time --> w/u as needed -> no bleeding is noted # NSTEMI --> asa and plavix --> per cards --> lexiscan # HL --> on lipitor # Lower extremity edema --> consider diuresis as per cards # HTN (hypertension) --> sbp goal <130 # CAD (coronary artery disease) # Stented coronary artery --> plavix, asa, Lipitor # Dvt ppx scds Appreciate consultation and erica RN Subjective Allergies: Coded Allergies: No Known Allergies (Unverified , 04/09/18) Subjective 08/10 duplex of lower ext is negative, erica rn, no events, labs are noted 925 labs are noted, no major events seen, no bleeding, no night sweats Objective Objective Current Medications Medications (Trade) Dose Ordered Sig/Sony Route PRN Reason Start Time Stop Time Status Last Admin Dose Admin Acetaminophen (Tylenol) 500 mg Q4H PRN ORAL Mild Pain (Pain Scale 1-3) 08/09/20 06:30 09/08/20 06:29 08/09/20 23:34 Aspirin (ASA) 81 mg DAILY ORAL 08/09/20 09:00 09/23/20 08:59 08/10/20 10:48 Atorvastatin Calcium (Lipitor) 20 mg BEDTIME ORAL 08/09/20 21:00 11/07/20 20:59 08/10/20 22:16 Bisacodyl (Dulcolax) 10 mg DAILYPRN PRN ORAL Constipation 08/09/20 17:00 11/07/20 16:59 Clopidogrel Bisulfate (Plavix) 75 mg DAILY ORAL 08/09/20 09:00 09/08/20 08:59 08/10/20 10:47 Docusate Sodium (Colace) 100 mg TWICE A DAY ORAL 08/09/20 21:00 09/08/20 20:59 08/10/20 17:36 Magnesium Hydroxide (Mom) 30 ml Q4H PRN ORAL Constipation 08/09/20 17:00 09/08/20 16:59 Metoprolol Tartrate (Lopressor) 12.5 mg Q12HR ORAL 08/09/20 21:00 11/07/20 20:59 08/09/20 20:27 Nitroglycerin (Ntg) 0.4 mg Q5M PRN SL Prn Chest Pain 08/10/20 18:30 09/09/20 18:29 08/10/20 18:41 Last 24 Hour Vital Signs Date Time Temp Pulse Resp B/P (MAP) Pulse Ox O2 Delivery O2 Flow Rate FiO2 08/11/20 04:00 62 08/11/20 04:00 97.8 62 18 112/73 (86) 98 08/11/20 00:00 97.5 64 18 134/64 (87) 100 08/11/20 00:00 68 08/10/20 21:00 Room Air 08/10/20 21:00 59 115/60 08/10/20 20:00 66 08/10/20 20:00 97.9 59 18 121/68 (85) 100 08/10/20 18:41 118/51 08/10/20 16:00 75 08/10/20 16:00 97.7 54 18 118/51 (73) 97 08/10/20 12:00 96.4 63 20 129/72 (91) 98 08/10/20 12:00 62 08/10/20 09:00 Room Air 08/10/20 09:00 62 129/72 08/10/20 08:00 97.2 60 18 123/81 (95) 97 08/10/20 08:00 58 08/10/20 04:00 94 08/10/20 04:00 98.7 61 20 103/53 (70) 97 08/10/20 00:04 97.9 08/10/20 00:00 70 08/10/20 00:00 98.1 61 20 103/53 (70) 100 08/09/20 21:00 Room Air 08/09/20 20:27 66 122/66 08/09/20 20:00 97.9 66 20 122/66 (84) 97 08/09/20 20:00 90 08/09/20 16:00 97.5 86 18 125/75 (92) 97 08/09/20 16:00 77 08/09/20 12:00 97.7 70 20 107/67 (80) 96 08/09/20 12:00 65 08/09/20 09:00 Room Air Intake and Output 08/10/20 08/11/20 18:59 06:59 Intake Total 360 ml 250 ml Balance 360 ml 250 ml Intake Oral 360 ml 250 ml # Voids 4 2 Labs Test 08/09/20 01:10 08/09/20 08:20 08/09/20 18:20 08/10/20 09:40 White Blood Count 8.3 K/UL (4.8-10.8) 7.0 K/UL (4.8-10.8) Red Blood Count 4.38 M/UL (4.70-6.10) 4.45 M/UL (4.70-6.10) Hemoglobin 14.3 G/DL (14.2-18.0) 14.1 G/DL (14.2-18.0) Hematocrit 39.1 % (42.0-52.0) 40.1 % (42.0-52.0) Mean Corpuscular Volume 89 FL (80-99) 90 FL (80-99) Mean Corpuscular Hemoglobin 32.6 PG (27.0-31.0) 31.6 PG (27.0-31.0) Mean Corpuscular Hemoglobin Concent 36.5 G/DL (32.0-36.0) 35.0 G/DL (32.0-36.0) Red Cell Distribution Width 12.4 % (11.6-14.8) 12.7 % (11.6-14.8) Platelet Count 199 K/UL (150-450) 214 K/UL (150-450) Mean Platelet Volume 7.8 FL (6.5-10.1) 6.9 FL (6.5-10.1) Neutrophils (%) (Auto) 69.9 % (45.0-75.0) 68.8 % (45.0-75.0) Lymphocytes (%) (Auto) 21.1 % (20.0-45.0) 22.1 % (20.0-45.0) Monocytes (%) (Auto) 6.5 % (1.0-10.0) 6.7 % (1.0-10.0) Eosinophils (%) (Auto) 1.6 % (0.0-3.0) 1.6 % (0.0-3.0) Basophils (%) (Auto) 0.8 % (0.0-2.0) 0.8 % (0.0-2.0) Prothrombin Time 10.8 SEC (9.30-11.50) Prothromb Time International Ratio 1.0 (0.9-1.1) Activated Partial Thromboplast Time 29 SEC (23-33) Sodium Level 138 MMOL/L (136-145) 142 MMOL/L (136-145) Potassium Level 3.5 MMOL/L (3.5-5.1) 3.9 MMOL/L (3.5-5.1) Chloride Level 103 MMOL/L (98-107) 106 MMOL/L (98-107) Carbon Dioxide Level 27 MMOL/L (21-32) 28 MMOL/L (21-32) Anion Gap 8 mmol/L (5-15) 8 mmol/L (5-15) Blood Urea Nitrogen 10 mg/dL (7-18) 9 mg/dL (7-18) Creatinine 1.1 MG/DL (0.55-1.30) 1.0 MG/DL (0.55-1.30) Estimat Glomerular Filtration Rate > 60 mL/min (>60) > 60 mL/min (>60) Glucose Level 98 MG/DL (74-106) 99 MG/DL (74-106) Calcium Level 8.5 MG/DL (8.5-10.1) 8.7 MG/DL (8.5-10.1) Total Bilirubin 1.2 MG/DL (0.2-1.0) 1.5 MG/DL (0.2-1.0) Direct Bilirubin 0.3 MG/DL (0.0-0.3) 0.3 MG/DL (0.0-0.3) Aspartate Amino Transf (AST/SGOT) 22 U/L (15-37) 17 U/L (15-37) Alanine Aminotransferase (ALT/SGPT) 26 U/L (12-78) 24 U/L (12-78) Alkaline Phosphatase 70 U/L (46-116) 65 U/L (46-116) Troponin I 0.082 ng/mL (0.000-0.056) 0.051 ng/mL (0.000-0.056) 0.069 ng/mL (0.000-0.056) Pro-B-Type Natriuretic Peptide 16 pg/mL (0-125) Total Protein 6.7 G/DL (6.4-8.2) 7.1 G/DL (6.4-8.2) Albumin 3.8 G/DL (3.4-5.0) 3.7 G/DL (3.4-5.0) Globulin 2.9 g/dL 3.4 g/dL Albumin/Globulin Ratio 1.3 (1.0-2.7) 1.1 (1.0-2.7) Lipase 87 U/L (73-393) Urine Opiates Screen Negative (NEGATIVE) Urine Barbiturates Screen Negative (NEGATIVE) Phencyclidine (PCP) Screen Negative (NEGATIVE) Urine Amphetamines Screen Negative (NEGATIVE) Urine Benzodiazepines Screen Negative (NEGATIVE) Urine Cocaine Screen Negative (NEGATIVE) Urine Marijuana (THC) Screen Positive (NEGATIVE) Test 08/10/20 18:30 08/11/20 06:05 Troponin I 0.067 ng/mL (0.000-0.056) 0.061 ng/mL (0.000-0.056) White Blood Count 7.6 K/UL (4.8-10.8) Red Blood Count 4.51 M/UL (4.70-6.10) Hemoglobin 14.2 G/DL (14.2-18.0) Hematocrit 40.8 % (42.0-52.0) Mean Corpuscular Volume 90 FL (80-99) Mean Corpuscular Hemoglobin 31.4 PG (27.0-31.0) Mean Corpuscular Hemoglobin Concent 34.8 G/DL (32.0-36.0) Red Cell Distribution Width 12.4 % (11.6-14.8) Platelet Count 196 K/UL (150-450) Mean Platelet Volume 7.8 FL (6.5-10.1) Neutrophils (%) (Auto) 69.2 % (45.0-75.0) Lymphocytes (%) (Auto) 22.2 % (20.0-45.0) Monocytes (%) (Auto) 6.5 % (1.0-10.0) Eosinophils (%) (Auto) 1.3 % (0.0-3.0) Basophils (%) (Auto) 0.8 % (0.0-2.0) Height (Feet): 5 Height (Inches): 11.00 Weight (Pounds): 203 Objective Physical Exam: Vitals: reviewed General: NAD HEENT: nc, at Neck: supple Chest: clear breath sounds bilaterally Cardiovascular: RRR, no s3, s4 Abdomen: soft, nontender, nd Extremities: 1-2+ edema Neuro: alert and oriented Evens Bai MD Aug 11, 2020 08:24
[2020-08-11] MEDS: Metoprolol Tartrate 12.5mg TAB ORAL SCH ×2 (09:00→20:26)
--- NOTE | 2020-08-11 09:21 | Cardiology Report ---
APPROVED REPORT EXAM: Two-dimensional and M-mode echocardiogram with Doppler and color Doppler. INDICATION Chest Pain M-Mode DIMENSIONS IVSd0.7 (0.7-1.1cm)Left Atrium (MM)3.3 (1.6-4.0cm) LVDd5.1 (3.5-5.6cm)Aortic Root2.7 (2.0-3.7cm) PWd0.8 (0.7-1.1cm)Aortic Cusp Exc.1.8 (1.5-2.0cm) IVSs1.2 cmEPSS0.6 (>1.0cm) LVDs3.5 (2.5-4.0cm) PWs1.3 cm <Conclusion> Technically difficult study due to poor acoustic windows. Study quality precludes accurate assessment of regional wall motion. Normal left ventricular chamber size, systolic function and wall motion. Left ventricular ejection fraction estimated to be 60 %. No evidence of left ventricular hypertrophy. Anterior Echo-free space, may be due to pericardial fat or effusion. All other cardiac chamber sizes are within normal limits. Focal aortic valve sclerosis with adequate cusp excursion. Thickened mitral valve leaflets with normal excursion. Mitral annulus and aortic root calcification. Pulmonic valve not well visualized. Normal tricuspid valve structure. IVC is normal in size with physiological collapse. A color flow and spectral Doppler study was performed and revealed: No aortic regurgitation. No mitral regurgitation. Mitral diastolic velocities suggest mild left ventricular diastolic dysfunction (Grade I). Mild tricuspid regurgitation. Tricuspid systolic velocities suggests peak right ventricular systolic pressure of 27 mmHg. Mild pulmonic regurgitation present.
[2020-08-11] MEDS: Docusate 100mg cap ORAL SCH ×2 (10:12→17:06)
[2020-08-11] MEDS: Aspirin Baby 81mg ORAL SCH (10:12)
--- NOTE | 2020-08-11 11:26 | Cardiac Electrophysiology PN ---
Assessment/Plan Assessment/Plan 1. Chest pain in a patient with history of prior LAD stent in December and obtuse marginal stent in January of 2020. All troponins are low and flat at around 0.6. Currently, he does not hav e any chest pain. EKG does not show any acute ischemic changes. Echocardiogram showed EF 60%. Stress test pending today. Continue aspirin, Plavix, and Lipitor, nitroglycerin and beta shelby. 2. Hypertension. On metoprolol and Lasix 3. Hyperlipidemia, on Lipitor. 4. Lower extremity edema. Echo Nl EF. Duplex no DVT. On low-dose Lasix OLEGARIO RN Subjective Subjective Patient seen and examined. [facility] records from 12/2019 and 01/2020( had Stent in LAD and OM) reviewed No CP or SOB. Stress test rescheduled for this am after the 3rd troponin. Objective Last 24 Hour Vital Signs Date Time Temp Pulse Resp B/P (MAP) Pulse Ox O2 Delivery O2 Flow Rate FiO2 08/11/20 09:00 Room Air 08/11/20 08:00 67 08/11/20 08:00 97.7 69 20 124/55 (78) 100 08/11/20 04:00 62 08/11/20 04:00 97.8 62 18 112/73 (86) 98 08/11/20 00:00 97.5 64 18 134/64 (87) 100 08/11/20 00:00 68 08/10/20 21:00 Room Air 08/10/20 21:00 59 115/60 08/10/20 20:00 66 08/10/20 20:00 97.9 59 18 121/68 (85) 100 08/10/20 18:41 118/51 08/10/20 16:00 75 08/10/20 16:00 97.7 54 18 118/51 (73) 97 08/10/20 12:00 96.4 63 20 129/72 (91) 98 08/10/20 12:00 62 Intake and Output 08/10/20 08/11/20 19:00 07:00 Intake Total 360 ml 250 ml Balance 360 ml 250 ml Intake Oral 360 ml 250 ml # Voids 4 2 Laboratory Tests Test 08/10/20 18:30 08/11/20 06:05 Troponin I 0.067 ng/mL (0.000-0.056) 0.061 ng/mL (0.000-0.056) White Blood Count 7.6 K/UL (4.8-10.8) Red Blood Count 4.51 M/UL (4.70-6.10) L Hemoglobin 14.2 G/DL (14.2-18.0) Hematocrit 40.8 % (42.0-52.0) L Mean Corpuscular Volume 90 FL (80-99) Mean Corpuscular Hemoglobin 31.4 PG (27.0-31.0) H Mean Corpuscular Hemoglobin Concent 34.8 G/DL (32.0-36.0) Red Cell Distribution Width 12.4 % (11.6-14.8) Platelet Count 196 K/UL (150-450) Mean Platelet Volume 7.8 FL (6.5-10.1) Neutrophils (%) (Auto) 69.2 % (45.0-75.0) Lymphocytes (%) (Auto) 22.2 % (20.0-45.0) Monocytes (%) (Auto) 6.5 % (1.0-10.0) Eosinophils (%) (Auto) 1.3 % (0.0-3.0) Basophils (%) (Auto) 0.8 % (0.0-2.0) Microbiology Date/Time Source Procedure Growth Status 08/09/20 00:00 Nasopharynx SARS-CoV-2 RdRp Gene Assay - Final Complete Objective HEAD AND NECK: No JVD. LUNGS: Clear. CARDIOVASCULAR: Regular S1 and S2 with no gallop or murmur. ABDOMEN: Soft. EXTREMITIES: No pitting edema. Stephen Fallon MD Aug 11, 2020 11:26
[2020-08-11 12:00] VITALS: BP 129/72
[2020-08-11] MEDS ORDERED: Lexiscan 0.4mg/5ml syringe IV PRN (12:30)
--- NOTE | 2020-08-11 14:40 | Cardiology Report ---
APPROVED REPORT EKG Measurement Heart [id number] <Conclusion> Normal sinus rhythm with sinus arrhythmia Incomplete right bundle branch block Borderline ECG
--- NOTE | 2020-08-11 15:45 | Diagnostic Imaging Report ---
Indications: Chest pain Technique: Single day single isotope protocol utilized. Initially, resting images obtained using IV administration 10.6 millicuries 99M technetium Myoview. Subsequently, patient underwent lexiscan stress testing. See cardiology report for details. During Lexiscan infusion, IV administration 30.1 mCi 99 M technetium Myoview. SPECT and planar images obtained. SPECT images gated to 8 phases of the cardiac cycle were also obtained, and reformatted into cine images for evaluation of ejection fraction. Comparison: none Findings: Per cardiology report, patient experienced no chest pain during infusion. Per cardiology report, resting EKG demonstrates normal sinus rhythm. Presence or absence of ST changes is not described. Imaging demonstrates a post stress perfusion defect in the apex and extending into the anteroseptal wall. This is not evident on the resting images. No fixed perfusion defects are demonstrated. Normal cardiac chamber size. Calculated post stress ejection fraction 68%. No focal wall motion abnormality Impression: Nonischemic clinical response to pharmacologic stress, per cardiology report Nonischemic electrocardiographic response to pharmacologic stress, per cardiology report Reversible perfusion defect involving the cardiac apex, extending into the anteroseptal wall, suspicious for an area of ischemia. Calculated post stress ejection fraction 68%
[2020-08-11 16:00] VITALS: BP 116/77
[2020-08-11 20:00] VITALS: BP 130/81
[2020-08-11] MEDS: Atorvastatin 20mg tab ORAL SCH (20:26)
--- NOTE | 2020-08-11 21:40 | General Progress Note ---
Subjective ROS Limited/Unobtainable: Yes Allergies: Coded Allergies: No Known Allergies (Unverified , 04/09/18) Objective Last 24 Hour Vital Signs Date Time Temp Pulse Resp B/P (MAP) Pulse Ox O2 Delivery O2 Flow Rate FiO2 08/11/20 20:26 67 130/81 08/11/20 16:00 78 08/11/20 16:00 97.3 62 20 116/77 (90) 100 08/11/20 12:00 63 08/11/20 12:00 96.4 71 20 129/72 (91) 100 08/11/20 09:00 Room Air 08/11/20 09:00 67 124/55 08/11/20 08:00 67 08/11/20 08:00 97.7 69 20 124/55 (78) 100 08/11/20 04:00 62 08/11/20 04:00 97.8 62 18 112/73 (86) 98 08/11/20 00:00 97.5 64 18 134/64 (87) 100 08/11/20 00:00 68 Intake and Output 08/10/20 08/11/20 19:00 07:00 Intake Total 360 ml 250 ml Balance 360 ml 250 ml Intake Oral 360 ml 250 ml # Voids 4 2 Laboratory Tests 08/11/20 06:05: White Blood Count 7.6, Red Blood Count 4.51L, Hemoglobin 14.2, Hematocrit 40.8L, Mean Corpuscular Volume 90, Mean Corpuscular Hemoglobin 31.4H, Mean Corpuscular Hemoglobin Concent 34.8, Red Cell Distribution Width 12.4, Platelet Count 196, Mean Platelet Volume 7.8, Neutrophils (%) (Auto) 69.2, Lymphocytes (%) (Auto) 22.2, Monocytes (%) (Auto) 6.5, Eosinophils (%) (Auto) 1.3, Basophils (%) (Auto) 0.8, Troponin I 0.061H Height (Feet): 5 Height (Inches): 11.00 Weight (Pounds): 203 Assessment/Plan Problem List: (1) CAD (coronary artery disease) ICD Codes: I25.10 - Atherosclerotic heart disease of [place] coronary artery without angina pectoris SNOMED: 20026275 (2) Lower extremity edema ICD Codes: R60.0 - Localized edema SNOMED: 613639666, 77033451 (3) HTN (hypertension) ICD Codes: I10 - Essential (primary) hypertension SNOMED: 56539422 (4) NSTEMI (non-ST elevated myocardial infarction) ICD Codes: I21.4 - Non-ST elevation (NSTEMI) myocardial infarction SNOMED: 16422634, 07814499 Status: progressing Assessment/Plan: cp negative stress test.i cleared pt for dc given normal stress test cardiology gave clearance Drew Amos MD Aug 11, 2020 21:39
[2020-08-12] VITALS: BP 126/71
[2020-08-12 04:00] VITALS: BP 124/72
[2020-08-12 08:00] VITALS: BP 129/79
[2020-08-12 08:23] VITALS: BP 129/79
[2020-08-12] MEDS: Aspirin Baby 81mg ORAL SCH (08:23)
[2020-08-12] MEDS: Metoprolol Tartrate 12.5mg TAB ORAL SCH (08:23)
[2020-08-12] MEDS: Docusate 100mg cap ORAL SCH (08:23)
[2020-08-12 10:07] LABS: BASOPHILS % (AUTO) 0.9 % (0.0-2.0); EOSINOPHILS % (AUTO) 1.2 % (0.0-3.0); HEMATOCRIT 43.4 % (42.0-52.0); LYMPHOCYTES % (AUTO) 15.6 % (20.0-45.0); MEAN CORPUSCULAR VOLUME 90 FL (80-99); MONOCYTES % (AUTO) 5.3 % (1.0-10.0); PLATELET COUNT 218 K/UL (150-450); RED BLOOD COUNT 4.81 M/UL (4.70-6.10); RED CELL DISTRIBUTION WIDTH 12.2 % (11.6-14.8); WHITE BLOOD COUNT 7.7 K/UL (4.8-10.8)
--- NOTE | 2020-08-12 10:21 | Pulmonology Progress Note ---
Subjective ROS Limited/Unobtainable: Yes Interval Events: None new Constitutional: Reports: no symptoms HEENT: Repors: no symptoms Respiratory: Reports: no symptoms Cardiovascular: Reports: no symptoms Gastrointestinal/Abdominal: Reports: no symptoms Allergies: Coded Allergies: No Known Allergies (Unverified , 04/09/18) Objective Last 24 Hour Vital Signs Date Time Temp Pulse Resp B/P (MAP) Pulse Ox O2 Delivery O2 Flow Rate FiO2 08/12/20 09:40 Room Air 08/12/20 08:23 63 129/79 08/12/20 08:00 79 08/12/20 08:00 97.5 63 18 129/79 (96) 100 08/12/20 04:00 97.7 62 18 124/72 (89) 98 08/12/20 04:00 56 08/12/20 00:00 97.7 59 18 126/71 (89) 97 08/12/20 00:00 61 08/11/20 21:00 Room Air 08/11/20 20:26 67 130/81 08/11/20 20:00 67 08/11/20 20:00 97.0 67 18 130/81 (97) 98 08/11/20 16:00 78 08/11/20 16:00 97.3 62 20 116/77 (90) 100 08/11/20 12:00 63 08/11/20 12:00 96.4 71 20 129/72 (91) 100 Intake and Output 08/11/20 08/12/20 19:00 07:00 Intake Total 360 ml Balance 360 ml Intake Oral 360 ml # Voids 2 General Appearance: WD/WN HEENT: normocephalic Respiratory: chest wall non-tender, lungs clear Cardiovascular: normal peripheral pulses, normal rate Abdomen: normal bowel sounds Laboratory Tests 08/12/20 09:30: White Blood Count 7.7, Red Blood Count 4.81, Hemoglobin 15.0, Hematocrit 43.4, Mean Corpuscular Volume 90, Mean Corpuscular Hemoglobin 31.1H, Mean Corpuscular Hemoglobin Concent 34.4, Red Cell Distribution Width 12.2, Platelet Count 218, Mean Platelet Volume 8.0, Neutrophils (%) (Auto) 77.0H, Lymphocytes (%) (Auto) 15.6L, Monocytes (%) (Auto) 5.3, Eosinophils (%) (Auto) 1.2, Basophils (%) (Auto) 0.9 Current Medications Medications (Trade) Dose Ordered Sig/Sony Route PRN Reason Start Time Stop Time Status Last Admin Dose Admin Acetaminophen (Tylenol) 500 mg Q4H PRN ORAL Mild Pain (Pain Scale 1-3) 08/09/20 06:30 09/08/20 06:29 08/09/20 23:34 Aspirin (ASA) 81 mg DAILY ORAL 08/09/20 09:00 09/23/20 08:59 08/12/20 08:23 Atorvastatin Calcium (Lipitor) 20 mg BEDTIME ORAL 08/09/20 21:00 11/07/20 20:59 08/11/20 20:26 Bisacodyl (Dulcolax) 10 mg DAILYPRN PRN ORAL Constipation 08/09/20 17:00 11/07/20 16:59 Clopidogrel Bisulfate (Plavix) 75 mg DAILY ORAL 08/09/20 09:00 09/08/20 08:59 08/12/20 08:23 Docusate Sodium (Colace) 100 mg TWICE A DAY ORAL 08/09/20 21:00 09/08/20 20:59 08/12/20 08:23 Magnesium Hydroxide (Mom) 30 ml Q4H PRN ORAL Constipation 08/09/20 17:00 09/08/20 16:59 08/11/20 18:15 Metoprolol Tartrate (Lopressor) 12.5 mg Q12HR ORAL 08/09/20 21:00 11/07/20 20:59 08/12/20 08:23 Nitroglycerin (Ntg) 0.4 mg Q5M PRN SL Prn Chest Pain 08/10/20 18:30 09/09/20 18:29 08/10/20 18:41 Regadenoson (Lexiscan) 0.4 mg ONCE PRN IV CARDIOLOGY 08/11/20 12:30 08/12/20 23:59 08/11/20 12:57 Assessment/Plan Assessment/Plan IMPRESSION: 1. Bilateral lower extremity edema. 2. CAD. 3. Hypertension. 4. Hyperlipidemia. 5. Hypoxia resolved DISCUSSION: Has negative duplex lower extremities. doing well Currently saturating well on room air. Cardiac workup; noted await clearance impression, plan, and exam edited and reviewed in detail care discussed with Darnell Esparza MD Aug 12, 2020 10:21
--- NOTE | 2020-08-14 07:14 | CDS Physician Query ---
Clarification is required for compliance, coding accuracy, and to reflect severity of illness for this patient. Dear Dr. Drew Hill MD Date: 08/14/20 CDI/CDS: Carrillo Blanca "[id number] comes in, admitted for non-STEMI. Patient also basically reports chest pain. Patient also has a couple of weeks of pain on both lower extremities. Patient has coronary stent x3." [H&P Drew Amos M.D. 08/09/2020 ] ASSESSMENT AND PLAN: Non-STEMI, chest pain, shortness of breath, hypertension, leg edema, rule out DVT. Assessment: Chest pain in a patient with history of prior LAD stent in December and obtuse marginal stent in January of 2020. All troponins are low and flat at around 0.6. Currently, he does not have any chest pain. EKG does not show any acute ischemic changes. Echocardiogram showed EF 60%. Stress test pending today. Continue aspirin, Plavix, and Lipitor, nitroglycerin and beta shelby. [Cardio PN Stephen Fallon MD 08/11/20] Clinical Finding Show: Vital sighs (08/09):T 97.5F, Pulse 82, RR 20, BP 140/85 Lab (08/09): Chem; Troponin 08/09 - 0.082 ng/ml Troponin 08/10 - 0.069 ng/ml Troponin 08/11 - 0.061 ng/ml Lexiscan nuclear stress test: NON-ISCHEMIC [ Raleigh Stein MD 08/11/20] A possible diagnosis of "Non-STEMI" was made in the medical record multiple times. Upon review, it is difficult to determine whether this diagnosis has been ruled in, ruled out,or is still being worked up. Please indicate below the status of the aforementioned diagnosis. [ ] Ruled IN [ ] Ruled out [ ] Other: Present on Admission: [] Yes [] No [] Clinically Undetermined Physician signature Date Please also document in your Progress Notes and/or Discharge Summary and indicate if the condition was present on admission. MTDD
--- NOTE | 2020-08-14 07:20 | CDS Physician Query ---
Clarification is required for compliance, coding accuracy, and to reflect severity of illness for this patient Dear Dr. Drew Hill MD Date: 08/14/20 CDI/CDS: Carrillo "[id number] comes in, admitted for non-STEMI. Patient also basically reports chest pain. Patient also has a couple of weeks of pain on both lower extremities. Patient has coronary stent x3." [H&P Drew Amos M.D. 08/09/2020 ] ASSESSMENT AND PLAN: Non-STEMI, chest pain, shortness of breath, hypertension, leg edema, rule out DVT. Assessment: Chest pain in a patient with history of prior LAD stent in December and obtuse marginal stent in January of 2020. All troponins are low and flat at around 0.6. Currently, he does not have any chest pain. EKG does not show any acute ischemic changes. Echocardiogram showed EF 60%. Stress test pending today. Continue aspirin, Plavix, and Lipitor, nitroglycerin and beta shelby. [Cardio PN Stephen Fallon MD 08/11/20] Clinical Finding Show: Vital sighs (08/09):T 97.5F, Pulse 82, RR 20, BP 140/85 Lab (08/09): Hemat; WBC 8.3, Chem; Troponin 08/09 - 0.082 ng/ml Lexiscan nuclear stress test: NON-ISCHEMIC [ Raleigh Stein MD 08/11/20] Medications: Nitroglycerin 0.4 SL , Please document the suspected etiology of Chest Pain: [] Aortic dissection [] Acute myocardial infarction [] Acute Coronary Syndrome [] Pericarditis [] Anxiety [] Cancer [] Pneumonia [] Costochondritis [] Pneumothorax [] GERD/Esophagitis [] Pulmonary embolism [] Other: [] Unable to determine Present on Admission: [] Yes [] No [] Clinically Undetermined Physician signature Date Please also document in your Progress Notes and/or Discharge Summary and indicate if the condition was present on admission. MARY
--- NOTE | 2020-08-14 11:22 | Discharge Summary ---
Discharge Summary Discharge Summary _ DATE OF ADMISSION: 08/09/2020 DATE OF DISCHARGE: 08/12/2020 DISCHARGED BY: Dr Amos REASON FOR ADMISSION: 59 years old male with past medical history of coronary artery disease, status post stent placement x3, hypertension, dyslipidemia, presented with complaint of generalized weakness and lower extremity edema, progressively worse over the last several weeks. Patient reported dyspnea on exertion. Patient denied chest pain. Patient reported being noncompliant with his medication. He denied recent history of cardiac evaluation or echocardiogram . The patient denied fever, chills, nausea, vomiting ,diarrhea. No cough or hemoptysis. No history of blood clot. Vital signs revealed pulse oximetry 92% on room air, blood pressure was 140/85. Rapid COVID-19 in emergency department was negative. Laboratory work-up revealed no leukocytosis , stable hemoglobin, hematocrit and platelet count. Troponin first 0.051-second one 0.069. EKG revealed sinus rhythm , no acute ischemic changes. Stable electrolytes and renal parameters. Chest x-ray revealed no acute cardiopulmonary pathology. Urine toxicology screen was positive for marijuana. In emergency department patient received aspirin , nitroglycerin, and admitted for further management. CONSULTANTS: industrial pipefitter journeyman Dr. Mariscal pulmonary Dr. Quiroga cloth desizing range tender/oncologist [facility] COURSE: Patient admitted to telemetry floor. Fish Worm Grower followed. Echocardiogram demonstrated preserved ejection fraction of 60%. No evidence of left ventricular hypertrophy. No evidence of wall motion abnormality. Right ventricular systolic pressure of 27. Venous duplex bilateral lower extremity was negative for evidence of acute DVT. Supplemental oxygen provided and titrated to keep pulse oximetry above 92%. Serial troponin started to trend down : the next troponin 0.067 and the last 0.061. Patient was on dual antiplatelet therapy with aspirin and Plavix along with beta blockage and statin. Nitroglycerin was on board as needed / Blood pressure remained stable. Patient subsequently undergone myocardial perfusion scan test , which revealed reversible perfusion defect, involving the cardiac apex , extending into the anteroseptal wall , suspicious for area of ischemia. Calculated post-rest ejection fraction 68%. Patient wanted to go home, and did not want to wait for transfer for a higher level of care( since no cardiac catheterization available at this hospital). Fish Worm Grower recommended outpatient follow-up with industrial pipefitter journeyman to schedule a cardiac cath . Troponin appeared low and flat. No complaint of chest pain. Patient was discharged home with outpatient follow up with industrial pipefitter journeyman . FINAL DIAGNOSES: Chest pain in patient with history of prior LAD stent Elevated troponin, possibly NSTEMI Coronary artery disease Hypertension Hyperlipidemia Bilateral lower extremity edema DISCHARGE MEDICATIONS: See Medication Reconciliation list. DISCHARGE INSTRUCTIONS: Patient was discharged home . Follow-up with industrial pipefitter journeyman to schedule cardiac catheterization. Return to ED precautions were discussed with patient in details. I have been assigned to dictate discharge summary for this account. I was not involved in the patient's management. Dasia Feng NP Aug 14, 2020 11:22
== END 2020-08-12 11:55 | disposition home or self-care (01) | DRG 190 ==
LOC: EMR 00:37 → 2E 02:15 → EDBEDREQ 05:27
DX: I21.4 Non-ST elevation (NSTEMI) myocardial infarction (principal); D63.8 Anemia in other chronic diseases classified elsewhere; I10 Essential (primary) hypertension; I25.10 Atherosclerotic heart disease of native coronary artery without angina pectoris; R09.02 Hypoxemia; E78.5 Hyperlipidemia, unspecified; Z95.5 Presence of coronary angioplasty implant and graft; Z79.02 Long term (current) use of antithrombotics/antiplatelets; Z79.82 Long term (current) use of aspirin; Z59.0 Homelessness; F17.200 Nicotine dependence, unspecified, uncomplicated; R60.0 Localized edema
CPT/HCPCS: 36415; 71045; 78452; 80053; 80307; 82248; 83690; 83880; 84484; 85025; 85610; 85730; 93005; 93017; 93306; 93970; 99291; U0002

== ENCOUNTER 2020-08-24 21:34 | Inpatient (IN) | payer MEDICAID ==
[~2020-08-24] VITALS: Ht 180.3 cm; Wt 91.6 kg
[~2020-08-24 21:34] MED LIST changes: +ASPIRIN81 MG ORAL; +ATORVASTATIN CA20 MG ORAL; +PLAVIX75 MG ORAL
[2020-08-24] MEDS ORDERED: COREG25 MG ORAL (21:44)
[2020-08-24 22:00] VITALS: BP 148/85
--- NOTE | 2020-08-24 22:00 | NUR ---
Nurse Note: Pt arrived c/o BLE swelling for over 4 days. Pt stated increased shortness of breath with walking short distances. Pt stated he had 3 stents placed in heart, unk name of procedure. IV est on LT upper arm, blood collected and sent. x-ray taken by radiology. All orders completed per ERMD orders. All safety measures met; will continue to monitior.
[2020-08-25] VITALS (7 sets, daily range): BP systolic 121–144; BP diastolic 62–85
[2020-08-25] MEDS ORDERED: Aspirin Baby 81mg ORAL ONE
--- NOTE | 2020-08-25 00:48 | Emergency Room Report ---
History of Present Illness General Chief Complaint: Edema Source: Patient Present Illness HPI Disclaimer: Please note that this report is being documented using [employer] technology. This can lead to erroneous entry secondary to incorrect interpretation by the dictating instrument. HPI: 59-year-old male history of cardiac disease, hypertension, high cholesterol presented for chest pain, shortness of breath and lower extremity edema. Chest pain is intermittent. He denies any pain at this time. No nausea no vomiting no cough no fever. Patient recently admitted 3 weeks ago for the same. At that time scan did demonstrate areas of reversible ischemia. Allergies: Coded Allergies: No Known Allergies (Unverified , 04/09/18) COVID-19 Screening Contact w/high risk pt: No Experienced COVID-19 symptoms?: No COVID-19 Testing performed SAXOPHONE TEACHER: No Patient History Reviewed Nursing Documentation: PMH: Agreed; PSxH: Agreed Nursing Documentation-PMH Hx Hypertension: No Hx Pacemaker: No Hx COPD: No Hx Diabetes: No - family hx Hx Cancer: No - family hx Hx Gastrointestinal Problems: No Hx Dialysis: No Hx Neurological Problems: No Hx Cerebrovascular Accident: Yes Hx Seizures: No Review of Systems All Other Systems: negative except mentioned in HPI Physical Exam Vital Signs Date Time Temp Pulse Resp B/P (MAP) Pulse Ox O2 Delivery O2 Flow Rate FiO2 08/24/20 21:37 98.1 85 16 148/85 (106) 95 Room Air Sp02 EP Interpretation: reviewed, normal General Appearance: well appearing, no apparent distress Head: normocephalic, atraumatic Eyes: bilateral eye PERRL, bilateral eye EOMI ENT: hearing grossly normal, moist mucus membranes Neck: full range of motion, supple Respiratory: lungs clear, normal breath sounds, no rhonchi, no respiratory di stress, no retraction, no wheezing Cardiovascular #1: normal peripheral pulses, regular rate, rhythm, no murmur, other - Bilateral 1+ lower extremity edema Cardiovascular #2: 2+ radial (R), 2+ radial (L) Gastrointestinal: non tender, soft, non-distended, no guarding Neurologic: alert, oriented x3, no focal defects Skin: normal color, warm/dry Medical Decision Making Diagnostic Impression: Primary Impression: Chest pain Additional Impressions: CAD (coronary artery disease) Lower extremity edema ER Course MDM: Differential diagnosis included but not limited to angina, CHF, dependent edema to name a few Clinical course-IV cardiac monitoring pulse oximetry. EKG completed and did not demonstrate any ischemic changes. Troponin was borderline at 0.056. Aspirin was given in the ER in addition to 20 mg of Lasix. As patient has a history of coronary artery disease will place on the telemetry floor for further observation and treatment. Patient has not followed up with cardiology since discharge from his last admission. Labs -troponin 0.056 On reevaluation: Patient resting comfortably Plan-admission to the telemetry unit EKG Diagnostic Results Troponin ordered: Yes Rate: normal Rhythm: NSR ST Segments: no acute changes ASA given to the pt in ED: Yes Rhythm Strip Diag. Results EP Interpretation: yes Rate: 74 Rhythm: NSR Chest X-Ray Diagnostic Results Chest X-Ray Diagnostic Results : Chest X-Ray Ordered: Yes # of Views/Limited/Complete: 1 View Indication: Chest Pain EP Interpretation: Yes Interpretation: no consolidation, no effusion, no pneumothorax Impression: No acute disease Electronically Signed by: Darryl Barajas MD Last Vital Signs Date Time Temp Pulse Resp B/P (MAP) Pulse Ox O2 Delivery O2 Flow Rate FiO2 20 22:00 98.1 78 16 148/85 95 Room Air Status: improved Disposition: ADMITTED INPATIENT Condition: Serious Referrals: NOT CHOSEN IPA/,REFERRING (PCP) Darryl Barajas M.D. Aug 25, 2020 00:48
--- NOTE | 2020-08-25 00:58 | NUR ---
ED Nurse Note: gave report to PHILIP Turcios, patient currently in bed with no distress at this time. waiting for transfer to the telemetry floor. will continue to monitor.
--- NOTE | 2020-08-25 01:21 | NUR ---
Nurse Note: Called tele unit; per charge nurse, the bed is ready for the patent. Pt in stable condition. All safety measures met.
--- NOTE | 2020-08-25 01:30 | NUR ---
NURSE NOTES: Received report from PHILIP Priest from er. Pt, alert, oriented x4, able to make needs known. No resp distress noted. Cardica monitor placed. No c/o any pain at this time. AMB with steady gait. Oriented to room, & units. Right AC 20g IV saline locked.Bed in low position & locked, side rails up x2. Call light with in reach.
[2020-08-25 01:44] LABS: ALANINE AMINOTRANSFERASE 17 U/L (12-78); ALBUMIN 3.7 G/DL (3.4-5.0); ALBUMIN/GLOBULIN RATIO 1.2 (1.0-2.7); ALKALINE PHOSPHATASE 68 U/L (46-116); ANION GAP 7 mmol/L (5-15); ASPARTATE AMINO TRANSFERASE 16 U/L (15-37); BILIRUBIN,TOTAL 0.3 MG/DL (0.2-1.0); BLOOD UREA NITROGEN 13 mg/dL (7-18); CALCIUM 8.8 MG/DL (8.5-10.1); CARBON DIOXIDE 27 MMOL/L (21-32); CHLORIDE 105 MMOL/L (98-107); CREATININE 1.4 MG/DL (0.55-1.30); POTASSIUM 3.6 MMOL/L (3.5-5.1); SODIUM 139 MMOL/L (136-145)
[2020-08-25 02:03] LABS: BASOPHILS % (AUTO) 1.1 % (0.0-2.0); EOSINOPHILS % (AUTO) 1.7 % (0.0-3.0); HEMATOCRIT 39.4 % (42.0-52.0); HEMOGLOBIN 14.3 G/DL (14.2-18.0); LYMPHOCYTES % (AUTO) 20.7 % (20.0-45.0); MEAN CORPUSCULAR VOLUME 90 FL (80-99); MONOCYTES % (AUTO) 5.1 % (1.0-10.0); NEUTROPHILS % (AUTO) 71.3 % (45.0-75.0); PLATELET COUNT 234 K/UL (150-450); RED BLOOD COUNT 4.38 M/UL (4.70-6.10); RED CELL DISTRIBUTION WIDTH 12.3 % (11.6-14.8); WHITE BLOOD COUNT 10.3 K/UL (4.8-10.8)
--- NOTE | 2020-08-25 07:23 | NUR ---
NURSE HAND-OFF REPORT: Important Events on Shift: PT ADMITTED FOR CHEST PAIN Patient Status: STABLE Diet: CARDIAC Pending Orders: [] Pending Results/Labs:[] Pending MD notification:[] Latest Vital Signs: Temperature 98.5 , Pulse 74 , B/P 144 /78 , Respiratory Rate 20 , O2 SAT 97 , Room Air, O2 Flow Rate . Vital Sign Comment: [] EKG Rhythm: Sinus Rhythm Rhythm change?: N MD Notified?: N - MD Response: Latest Mckeon Fall Score: 35 Fall Risk: Medium Risk Safety Measures: Call light Within Reach, Bed Alarm Zone 2, Side Rails Side Rails x2, Bed position Low and Locked. Fall Precautions: Door Sign Patient Fall Education Report given to CARLA HERRERA.
--- NOTE | 2020-08-25 07:35 | NUR ---
NURSE NOTES: RECEIVED PATIENT A/A/OX4, IN BED CALM AND COMFORTABLE. ABLE TO FEED SELF. ABLE TO UTILIZE URINAL. NO ACUTE RESP DISTRESS NOTED. PIV PATENT AND INTACT. ON SALINE LOCK. AMBULATES WITH STEADY GAIT. KEEP BED IN THE LOWEST POSITION. SIDERAILS ARE UP X2, CALL LIGHT IS WITHIN REACH. WILL CONT TO MONITOR.
[2020-08-25] MEDS: Carvedilol 25mg Tab ORAL SCH ×2 (08:32→20:34)
[2020-08-25] MEDS: Aspirin Baby 81mg ORAL SCH (08:32)
--- NOTE | 2020-08-25 11:29 | Diagnostic Imaging Report ---
Indication: Bilateral lower extremity pain Technique: Grayscale and duplex images of the bilateral lower extremity veins Comparison: 08/09/2020 Findings: Bilaterally, grayscale and duplex images demonstrate no evidence of intraluminal thrombus. Normal phasic Doppler waveforms, demonstrating normal augmentation response and no evidence of valvular insufficiency. Greater saphenous vein(s) and tibial veins are patent. Normal compressibility. No significant change Impression: Negative for evidence of lower extremity deep venous thrombosis bilaterally
--- NOTE | 2020-08-25 12:00 | NUR ---
NURSE NOTES: ALEJA SCD'S INITIATED. WILL CONT TO MONITOR.
--- NOTE | 2020-08-25 12:30 | Consultation ---
DATE OF CONSULTATION: 08/25/2020 PULMONARY CONSULTATION HISTORY OF PRESENT ILLNESS: This is a 59-year-old male admitted to the hospital with chest pain. The patient has history of underlying CAD, hypertension, hyperlipidemia. He reports shortness of breath as well as worsening lower extremity edema. The patient was admitted to this hospital three weeks ago at which he had a Lexiscan which was negative for any ischemia. At this time, the patient states he is feeling better. PAST MEDICAL HISTORY: Notable for hypertension, hyperlipidemia, history of CAD, negative recent stress test. He also reports history of previous CVA. HOME MEDICATIONS: Reviewed and reconciled in chart. REVIEW OF SYSTEMS: Denies any headaches, hematemesis, melena, hematochezia, night sweats or weight loss. PHYSICAL EXAMINATION: GENERAL: Reveals an 59-year-old male. HEENT: Unremarkable. CHEST: Clear breath sounds bilaterally. ABDOMEN: Soft. EXTREMITIES: There is no edema. NEUROLOGIC: Nonfocal. Review of previous myocardial perfusion scan done on 08/11/2020 shows reversible perfusion defect involving the cardiac apex suspicious for ischemia. IMPRESSION: 1. Abnormal myocardial perfusion scan. 2. Chest pain. 3. CAD. 4. Hypertension. 5. Hyperlipidemia. DISCUSSION: previous myocardial perfusion scan is abnormal. We will discuss with Cardiology. We will follow carefully. Respiratory status is stable. Juan F Quiroga M.D. DR: Foreign JOB#: [id number] CC:
--- NOTE | 2020-08-25 16:11 | Cardiac Electrophysiology PN ---
Subjective Subjective [id number] Objective Last 24 Hour Vital Signs Date Time Temp Pulse Resp B/P (MAP) Pulse Ox O2 Delivery O2 Flow Rate FiO2 08/25/20 15:53 98.1 76 19 123/70 (87) 100 08/25/20 12:23 68 08/25/20 11:48 97.9 91 17 132/85 (101) 96 08/25/20 09:30 Room Air 08/25/20 08:40 75 08/25/20 08:32 84 131/62 08/25/20 08:00 98.7 84 18 131/62 (85) 98 08/25/20 04:00 98.5 74 20 144/78 (100) 97 08/25/20 04:00 79 08/25/20 02:11 Room Air 08/25/20 01:40 98.3 80 20 132/75 (94) 98 08/25/20 01:40 73 08/25/20 01:25 98.2 78 18 128/76 98 Room Air 08/25/20 00:50 98.2 82 18 121/73 98 Room Air 08/24/20 22:00 98.1 78 16 148/85 95 Room Air 08/24/20 22:00 85 16 Room Air 08/24/20 21:37 98.1 85 16 148/85 (106) 95 Room Air Intake and Output 08/24/20 08/25/20 19:00 07:00 Intake Total 680 ml Output Total 2500 ml Balance -1820 ml Intake Oral 180 ml Other 500 ml Output Urine Total 2500 ml Laboratory Tests Test 08/24/20 22:00 White Blood Count 10.3 K/UL (4.8-10.8) Red Blood Count 4.38 M/UL (4.70-6.10) L Hemoglobin 14.3 G/DL (14.2-18.0) Hematocrit 39.4 % (42.0-52.0) L Mean Corpuscular Volume 90 FL (80-99) Mean Corpuscular Hemoglobin 32.7 PG (27.0-31.0) H Mean Corpuscular Hemoglobin Concent 36.3 G/DL (32.0-36.0) H Red Cell Distribution Width 12.3 % (11.6-14.8) Platelet Count 234 K/UL (150-450) Mean Platelet Volume 7.1 FL (6.5-10.1) Neutrophils (%) (Auto) 71.3 % (45.0-75.0) Lymphocytes (%) (Auto) 20.7 % (20.0-45.0) Monocytes (%) (Auto) 5.1 % (1.0-10.0) Eosinophils (%) (Auto) 1.7 % (0.0-3.0) Basophils (%) (Auto) 1.1 % (0.0-2.0) Sodium Level 139 MMOL/L (136-145) Potassium Level 3.6 MMOL/L (3.5-5.1) Chloride Level 105 MMOL/L (98-107) Carbon Dioxide Level 27 MMOL/L (21-32) Anion Gap 7 mmol/L (5-15) Blood Urea Nitrogen 13 mg/dL (7-18) Creatinine 1.4 MG/DL (0.55-1.30) H Estimat Glomerular Filtration Rate > 60 mL/min (>60) Glucose Level 93 MG/DL (74-106) Calcium Level 8.8 MG/DL (8.5-10.1) Total Bilirubin 0.3 MG/DL (0.2-1.0) Aspartate Amino Transf (AST/SGOT) 16 U/L (15-37) Alanine Aminotransferase (ALT/SGPT) 17 U/L (12-78) Alkaline Phosphatase 68 U/L (46-116) Troponin I 0.056 ng/mL (0.000-0.056) Pro-B-Type Natriuretic Peptide 18 pg/mL (0-125) Total Protein 6.7 G/DL (6.4-8.2) Albumin 3.7 G/DL (3.4-5.0) Globulin 3.0 g/dL Albumin/Globulin Ratio 1.2 (1.0-2.7) Stephen Fallon MD Aug 25, 2020 16:11
--- NOTE | 2020-08-25 16:20 | Cardiology Report ---
APPROVED REPORT EKG Measurement Heart [id number] <Conclusion> Normal sinus rhythm Normal ECG
--- NOTE | 2020-08-25 16:41 | NUR ---
CASE MANAGEMENT:REVIEW 59 YR OLD MALE PRESENTED TO ER PMH: 3 STENTS PLACED THIS YEAR SI: CHEST PAIN. CAD. LE EDEMA 98.0 85 16 148/85 95% ON RA CR+1.4 TROPONIN(-) IS: IV LASIX X1 ASA PO X1 CHEST XRAY : TO TELEMETRY
--- NOTE | 2020-08-25 17:06 | Diagnostic Imaging Report ---
Indication: Shortness of breath Technique: One view of the chest Comparison: 08/09/2020 Findings: Lungs and pleural spaces are clear. Heart size is normal. Impression: No acute process
--- NOTE | 2020-08-25 19:04 | NUR ---
NURSE NOTES: Patient received from Chasidy PALACIOS. Patient in stable condition. Alert and oriented x4. Patient in bed calm and comfortable. Saturating well on Room Air. Complained of 10/10 pain for feet and throbbing chest pain radiating to the Left arm. Will notify doctor. Bed in lowest position and locked. Call light and bedside table within reach. Will continue plan of care.
--- NOTE | 2020-08-25 19:04 | NUR ---
NURSE HAND-OFF REPORT: Important Events on Shift:[SCD'S APPLIED, MONITOR FOR CP AND DISTRESS;] Patient Status: [STABLE] Diet: []CARDIAC Pending Orders: EKG, LABS IN AM[] Pending Results/Labs:[IN AM] Pending MD notification:[] Latest Vital Signs: Temperature 98.1 , Pulse 69 , B/P 123 /70 , Respiratory Rate 19 , O2 SAT 100 , Room Air, O2 Flow Rate . Vital Sign Comment: [] EKG Rhythm: Sinus Rhythm Rhythm change?: N MD Notified?: N - MD Response: Latest Mckeon Fall Score: 35 Fall Risk: Medium Risk Safety Measures: Call light Within Reach, Bed Alarm Zone 1, Side Rails Side Rails x2, Bed position Low and Locked. Fall Precautions: Yellow Socks Yellow Gown Door Sign Patient Fall Education Report given to [LARISA].
--- NOTE | 2020-08-25 19:39 | NUR ---
NURSE NOTES: Notified Dr. Amos of patient's complain for 10/10 Feet pain and Chest Pain radiating to the left. Called back and asked to notify Dr. Tripp and Dr. Fallon.
--- NOTE | 2020-08-25 19:45 | NUR ---
NURSE NOTES: Notified Dr. Tripp and Dr. Fallon about patient's concerns. Awaiting call back.
--- NOTE | 2020-08-25 20:30 | Consultation ---
DATE OF CONSULTATION: 08/25/2020 CARDIOLOGY CONSULTATION CONSULTING PHYSICIAN: Stephen Fallon MD. REFERRING PHYSICIAN: Drew Amos MD. REASON FOR CONSULTATION: Chest pain. HISTORY OF PRESENT ILLNESS: Patient is a 59-year-old gentleman with history of hypertension, hyperlipidemia, and coronary artery disease who recently had a negative stress test who also has history of prior CVA. Patient presented to the emergency room complaining of shortness of breath and lower extremity edema. Patient was admitted 3 weeks ago and underwent a Lexiscan, which was negative for any ischemia. Patient was admitted and Cardiology consultation was requested for further evaluation and management. REVIEW OF SYSTEMS: His review of systems was negative other than what was mentioned in history of present illness. PAST MEDICAL HISTORY: As mentioned above. FAMILY HISTORY: Noncontributory. SOCIAL HISTORY: He lives at home. Denies smoking or drinking alcohol. LABORATORY AND DIAGNOSTIC DATA: Labs show white count 10.2, hemoglobin 14.2, hematocrit 39.4, and platelet count of 234. Sodium 139, potassium 3.6, BUN of 13, creatinine 1.4. Troponin today is negative. His urine toxicology on today's admission was positive for marijuana. ASSESSMENT AND PLAN: 1. Chest pain. The patient's troponin is negative on this admission. Patient has history of prior LAD stent in December as well as obtuse marginal branch in January of 2020. His stress test on 08/11/2020 is suggestive of anterior septal ischemia with reversible perfusion defect. The patient likely would need cardiac catheterization for further evaluation of his coronaries. Patient's echocardiogram however showed EF of 60%. 2. History of hypertension. Continue metoprolol and Lasix. 3. Hyperlipidemia, on Lipitor. 4. Lower extremity edema. There is no evidence of DVT on lower extremity. Echo, normal EF. Continue low-dose Lasix. It is of note that patient from December 2019 and January 2020 stent in LAD and obtuse marginal were reviewed. Thank you very much for allowing me to participate in the care of this patient. Please do not hesitate to contact me for any questions regarding my evaluation. Stephen Fallon M.D. DR: CRISTY JOB#: [id number] CC:
[2020-08-25] MEDS: Atorvastatin 20mg tab ORAL SCH (20:34)
--- NOTE | 2020-08-25 20:58 | NUR ---
NURSE NOTES: Called Dr. Tripp again for patient's pain medication. Awaiting call back.
[2020-08-25] MEDS: Nitroglycerin Subl 0.4mg tab SL PRN (22:17)
[2020-08-26] VITALS: BP 120/72
[2020-08-26 04:00] VITALS: BP 120/72
--- NOTE | 2020-08-26 04:34 | NUR ---
NURSE NOTES: Patient had [employer] left message for Dr. Steinberg Awaiting call back.
--- NOTE | 2020-08-26 07:12 | NUR ---
NURSE HAND-OFF REPORT: Important Events on Shift:[[employer] notified Dr. Fallon] Patient Status: [Stable] Diet: [Cardiac Diet] Pending Orders: [] Pending Results/Labs:[] Pending MD notification:[] Latest Vital Signs: Temperature 97.7 , Pulse 75 , B/P 120 /72 , Respiratory Rate 16 , O2 SAT 95 , Room Air, O2 Flow Rate . Vital Sign Comment: [] EKG Rhythm: Sinus Rhythm Rhythm change?: N MD Notified?: N - MD Response: Latest Mckeon Fall Score: 35 Fall Risk: Medium Risk Safety Measures: Call light Within Reach, Bed Alarm Zone 1, Side Rails Side Rails x2, Bed position Low and Locked. Fall Precautions: Yellow Socks Yellow Gown Door Sign Patient Fall Education Report given to [Chasidy RN].
--- NOTE | 2020-08-26 07:25 | NUR ---
NURSE NOTES: RECEIVED PATIENT A/A/OX4, IN BED CALM AND COMFORTABLE. APPEARED TO BE PLEASANT. ABLE TO FEED SELF. ADEQUATE AMOUNT OF FOOD INTAKE. NO C/O PAIN/DISCOMFORT @ THIS TIME. AMBULATES WITH MINIMAL ASSISTANCE. NO ACUTE CARDIO-RESP DISTRESS NOTED. SCD'S INPLACED. PIV PATENT AND INTACT. ON SALINE LOCK. AMBULATES WITH STEADY GAIT. KEEP BED IN THE LOWEST POSITION. SIDERAILS ARE UP X2, CALL LIGHT IS WITHIN REACH. WILL CONT TO MONITOR.
[2020-08-26 07:41] LABS: ALANINE AMINOTRANSFERASE 20 U/L (12-78); ALBUMIN 3.3 G/DL (3.4-5.0); ALBUMIN/GLOBULIN RATIO 1.1 (1.0-2.7); ALKALINE PHOSPHATASE 62 U/L (46-116); ANION GAP 9 mmol/L (5-15); ASPARTATE AMINO TRANSFERASE 32 U/L (15-37); BILIRUBIN,TOTAL 0.4 MG/DL (0.2-1.0); BLOOD UREA NITROGEN 10 mg/dL (7-18); CALCIUM 8.4 MG/DL (8.5-10.1); CARBON DIOXIDE 27 MMOL/L (21-32); CHLORIDE 104 MMOL/L (98-107); CHOLESTEROL 153 MG/DL (< 200); CREATININE 1.2 MG/DL (0.55-1.30); GAMMA GLUTAMYL TRANSPEPTIDASE 17 U/L (5-85); HDL CHOLESTEROL 47 MG/DL (40-60); PHOSPHORUS 4.1 MG/DL (2.5-4.9); POTASSIUM 3.8 MMOL/L (3.5-5.1); SODIUM 139 MMOL/L (136-145); TRIGLYCERIDES 153 MG/DL (30-150)
[2020-08-26 08:00] VITALS: BP 132/86
[2020-08-26] MEDS: Carvedilol 25mg Tab ORAL SCH ×2 (08:05→20:36)
[2020-08-26] MEDS: Aspirin Baby 81mg ORAL SCH (08:05)
[2020-08-26] MEDS: Imdur 30mg tab ORAL SCH (08:06)
--- NOTE | 2020-08-26 11:11 | NUR ---
NURSE NOTES: PATIENT REQUESTED TO BE DISCHARGED TODAY. STATED THAT HE IS WELL ENOUGH. PATIENT HAS NO C/O PAIN/DISCOMFORT. NO C/O CHEST PAIN. VSS. ADL'S INDEPENDENTLY. AND HAD REMOVED IV ACCESS. INFORMED DR KAUR. PER PMD MOST LIKE D/C TOMORROW AM. MADE PATIENT AWARE AND ABLE TO VERBALIZE UNDERSTANDING. WILL CONT TO MONITOR. Addendum: 08/26/20 at 1131 by DAISY KNIGHT LVN PER DR KAUR IT IS FINE FOR NO IV ACCESS. WILL CONT TO MONITOR.
[2020-08-26 11:43] VITALS: BP 121/67
--- NOTE | 2020-08-26 14:10 | Pulmonology Progress Note ---
Subjective Interval Events: None new Constitutional: Reports: no symptoms HEENT: Repors: no symptoms Respiratory: Reports: no symptoms Cardiovascular: Reports: no symptoms Gastrointestinal/Abdominal: Reports: no symptoms Genitourinary: Reports: no symptoms Allergies: Coded Allergies: No Known Allergies (Unverified , 04/09/18) Objective Last 24 Hour Vital Signs Date Time Temp Pulse Resp B/P (MAP) Pulse Ox O2 Delivery O2 Flow Rate FiO2 08/26/20 12:00 64 08/26/20 11:43 98.1 64 18 121/67 (85) 99 08/26/20 09:00 Room Air 08/26/20 08:06 132/86 08/26/20 08:05 64 132/86 08/26/20 08:00 63 08/26/20 08:00 98.1 64 18 132/86 (101) 98 08/26/20 04:00 97.7 75 16 120/72 (88) 95 08/26/20 04:00 75 08/26/20 00:00 97.7 75 16 120/72 (88) 95 08/26/20 00:00 75 08/25/20 22:17 130/79 08/25/20 21:00 Room Air 08/25/20 20:34 69 128/85 08/25/20 20:00 98.5 81 20 128/85 (99) 97 08/25/20 20:00 81 08/25/20 16:00 69 08/25/20 15:53 98.1 76 19 123/70 (87) 100 Intake and Output 08/25/20 08/26/20 19:00 07:00 Intake Total 1000 ml Output Total 700 ml 3 ml Balance 300 ml -3 ml Intake Oral 1000 ml Output Urine Total 700 ml 3 ml # Voids 5 General Appearance: no acute distress HEENT: normocephalic Respiratory: chest wall non-tender, lungs clear Cardiovascular: normal peripheral pulses Abdomen: normal bowel sounds Laboratory Tests 08/26/20 06:20: Sodium Level 139, Potassium Level 3.8, Chloride Level 104, Carbon Dioxide Level 27, Anion Gap 9, Blood Urea Nitrogen 10, Creatinine 1.2, Estimat Glomerular Filt ration Rate > 60, Glucose Level 97, Hemoglobin A1c 5.7, Uric Acid 6.4, Calcium Level 8.4L, Phosphorus Level 4.1, Magnesium Level 2.0, Total Bilirubin 0.4, Gamma Glutamyl Transpeptidase 17, Aspartate Amino Transf (AST/SGOT) 32, Alanine Aminotransferase (ALT/SGPT) 20, Alkaline Phosphatase 62, Troponin I 0.056, C- Reactive Protein, Quantitative < 0.4, Pro-B-Type Natriuretic Peptide 61, Total Protein 6.3L, Albumin 3.3L, Globulin 3.0, Albumin/Globulin Ratio 1.1, Triglycerides Level 153H, Cholesterol Level 153, LDL Cholesterol 78, HDL Cholesterol 47, Cholesterol/HDL Ratio 3.3 Current Medications Medications (Trade) Dose Ordered Sig/Sony Route PRN Reason Start Time Stop Time Status Last Admin Dose Admin Aspirin (ASA) 81 mg DAILY ORAL 08/25/20 09:00 10/09/20 08:59 08/26/20 08:05 Atorvastatin Calcium (Lipitor) 20 mg BEDTIME ORAL 08/25/20 21:00 11/23/20 20:59 08/25/20 20:34 Carvedilol (Coreg) 25 mg EVERY 12 HOURS ORAL 08/25/20 09:00 09/24/20 08:59 08/26/20 08:05 Clopidogrel Bisulfate (Plavix) 75 mg DAILY ORAL 08/25/20 09:00 09/24/20 08:59 08/26/20 08:06 Isosorbide Mononitrate (Imdur) 30 mg DAILY ORAL 08/26/20 09:00 09/25/20 08:59 08/26/20 08:06 Nitroglycerin (Ntg) 0.4 mg Q5M PRN SL Prn Chest Pain 08/25/20 22:15 09/24/20 22:14 08/25/20 22:17 Assessment/Plan Assessment/Plan IMPRESSION: 1. Abnormal myocardial perfusion scan. 2. Chest pain. 3. CAD. 4. Hypertension. 5. Hyperlipidemia. DISCUSSION: Noted that previous myocardial perfusion scan is abnormal. Reviewed notes by Cardiology. I will follow carefully. Respiratory status is stable. Calin Cervantes Omar Syed MD Aug 26, 2020 14:10
--- NOTE | 2020-08-26 14:44 | NUR ---
CASE MANAGEMENT:REVIEW SI;CHEST PAIN. CAD. HTN. 98.1 64 18 132/86 98% ON RA IS;IMDUR PO QD PLAVIX PO QD COREG PO Q12 ASA PO QD TELE STATUS DCP;FROM HOME
[2020-08-26] MEDS: Nitroglycerin Subl 0.4mg tab SL PRN (15:11)
--- NOTE | 2020-08-26 15:17 | NUR ---
NURSE NOTES: PATIENT C/O CHEST PAIN WITH 7/10 PAIN SCALE THAT RADIATES TO LEFT ARM. ABLE TO VERBALIZE NEEDS. ADMINISTERED NTG ORDERED PRN AND ALLEVIATES THE CHEST PAIN. PATIENT IS NO DISTRESS NOTED AFTER 5 MIN FROM TAKING NTG. ASKING FOR SNACKS AFTERWARDS. WILL CONT TO MONITOR.
[2020-08-26 15:35] VITALS: BP 122/63
--- NOTE | 2020-08-26 15:49 | NUR ---
CASE MANGER NOTE PATIENT HAS BEEN REFERRED FOR HIGHER LEVEL OF CARE FOR CARDIAC CAMP TENDER TO [facility] ([facility]) P: [phone] F: [phone]
--- NOTE | 2020-08-26 15:51 | Cardiac Electrophysiology PN ---
Assessment/Plan Assessment/Plan 1. Chest pain. The patient's troponin is negative on this admission. Patient has history of prior LAD stent in December as well as obtuse marginal branch in January of 2020 at [facility]. His stress test on 08/11/2020 was suggestive of anterior septal ischemia with reversible perfusion defect. Will transfer to [facility] or [facility] if insurance approves for cardiac catheterization for further evaluation of his coronaries. Patient's echocardiogram however showed EF of 60%. 2. History of hypertension. Continue metoprolol and Lasix. 3. Hyperlipidemia, on Lipitor. 4. Lower extremity edema. There is no evidence of DVT Echo, normal EF. Continue low-dose Lasix. OLEGARIO RN and Dr Amos Subjective Subjective Off and on has chest pain Objective Last 24 Hour Vital Signs Date Time Temp Pulse Resp B/P (MAP) Pulse Ox O2 Delivery O2 Flow Rate FiO2 08/26/20 15:35 98.1 64 18 122/63 (82) 99 08/26/20 15:11 126/74 08/26/20 12:00 64 08/26/20 11:43 98.1 64 18 121/67 (85) 99 08/26/20 09:00 Room Air 08/26/20 08:06 132/86 08/26/20 08:05 64 132/86 08/26/20 08:00 63 08/26/20 08:00 98.1 64 18 132/86 (101) 98 08/26/20 04:00 97.7 75 16 120/72 (88) 95 08/26/20 04:00 75 08/26/20 00:00 97.7 75 16 120/72 (88) 95 08/26/20 00:00 75 08/25/20 22:17 130/79 08/25/20 21:00 Room Air 08/25/20 20:34 69 128/85 08/25/20 20:00 98.5 81 20 128/85 (99) 97 08/25/20 20:00 81 08/25/20 16:00 69 08/25/20 15:53 98.1 76 19 123/70 (87) 100 Intake and Output 08/25/20 08/26/20 19:00 07:00 Intake Total 1000 ml Output Total 700 ml 3 ml Balance 300 ml -3 ml Intake Oral 1000 ml Output Urine Total 700 ml 3 ml # Voids 5 Laboratory Tests Test 08/26/20 06:20 Sodium Level 139 MMOL/L (136-145) Potassium Level 3.8 MMOL/L (3.5-5.1) Chloride Level 104 MMOL/L (98-107) Carbon Dioxide Level 27 MMOL/L (21-32) Anion Gap 9 mmol/L (5-15) Blood Urea Nitrogen 10 mg/dL (7-18) Creatinine 1.2 MG/DL (0.55-1.30) Estimat Glomerular Filtration Rate > 60 mL/min (>60) Glucose Level 97 MG/DL (74-106) Hemoglobin A1c 5.7 % (4.3-6.0) Uric Acid 6.4 MG/DL (2.6-7.2) Calcium Level 8.4 MG/DL (8.5-10.1) L Phosphorus Level 4.1 MG/DL (2.5-4.9) Magnesium Level 2.0 MG/DL (1.8-2.4) Total Bilirubin 0.4 MG/DL (0.2-1.0) Gamma Glutamyl Transpeptidase 17 U/L (5-85) Aspartate Amino Transf (AST/SGOT) 32 U/L (15-37) Alanine Aminotransferase (ALT/SGPT) 20 U/L (12-78) Alkaline Phosphatase 62 U/L (46-116) Troponin I 0.056 ng/mL (0.000-0.056) C-Reactive Protein, Quantitative < 0.4 mg/dL (0.00-0.90) Pro-B-Type Natriuretic Peptide 61 pg/mL (0-125) Total Protein 6.3 G/DL (6.4-8.2) L Albumin 3.3 G/DL (3.4-5.0) L Globulin 3.0 g/dL Albumin/Globulin Ratio 1.1 (1.0-2.7) Triglycerides Level 153 MG/DL (30-150) H Cholesterol Level 153 MG/DL (< 200) LDL Cholesterol 78 mg/dL (<100) HDL Cholesterol 47 MG/DL (40-60) Cholesterol/HDL Ratio 3.3 (3.3-4.4) Objective HEENT: No JVD LUNGS: Clear CVS: RRR ABD: soft EXT: Less edema Stephen Fallon MD Aug 26, 2020 15:51
--- NOTE | 2020-08-26 16:15 | History and Physical Report ---
DATE OF ADMISSION: 08/24/2020 HISTORY OF PRESENT ILLNESS: The patient is admitted for chest pain, rule out acute coronary syndrome. The patient basically has been having a history of cardiac disease and high blood pressure and high cholesterol and moderate to high risk for acute coronary syndrome. The patient had some edema in the lower extremities, shortness of breath. Denies orthopnea. Denies nausea, vomiting, or diarrhea. No fever or chills. Denies cough. Admitted to rule out acute coronary syndrome. The patient also has been having bilateral lower extremity edema. The patient has stents placed in the past. PAST MEDICAL HISTORY: Coronary artery disease, history of hypertension, hyperlipidemia. PAST SURGICAL HISTORY: Three stents placed in the coronary arteries, bilateral leg vascular surgery in 1999. The patient also had a history of CVA in the past. History of [place]. FAMILY HISTORY: History of hypertension and diabetes. MEDICATIONS: Lipitor, Coreg, Plavix, and isosorbide mononitrate. ALLERGIES: No known allergies. SOCIAL HISTORY: Denies smoking. Denies alcohol or illicit drugs. REVIEW OF SYSTEMS: HEENT: Denies headaches. RESPIRATORY: Reports shortness of breath. Denies cough. CARDIOVASCULAR: Does have chest pain for about 2 days without radiation. Denies palpitation. No orthopnea. GASTROINTESTINAL: Denies nausea, vomiting, or diarrhea. EXTREMITIES: Does have chronic pain syndrome. CENTRAL NERVOUS SYSTEM: Denies change in speech pattern. PHYSICAL EXAMINATION: VITAL SIGNS: Temperature 98.1, pulse is 64, blood pressure is 132/86. HEENT: PERRLA. NECK: Supple. No lymphadenopathy. CHEST: Clear to auscultation. CARDIOVASCULAR: Regular rate and rhythm. No murmurs or extra sounds. GASTROINTESTINAL: Soft, nontender, nondistended. No organomegaly. EXTREMITIES: No edema. Moves all 4 extremities. NEUROLOGIC: Sensory intact to light touch. Dorsalis pedis pulses are present. EKG does not show any ST elevations. LABORATORY DATA: WBC of 10.3, hemoglobin 14.3, platelets 234. Sodium 139, potassium 3.6, BUN of 13, creatinine 1.4, glucose of 93. Troponin 0.056. ASSESSMENT AND PLAN: Chest pain, moderate to high risk for acute coronary syndrome. Dr. Fallon has been consulted, Dr. Tripp for pain management, and Dr. Juan F Quiroga has been consulted for shortness of breath workup and Dr. Schaeffer for fluid management. Stress test will be deferred to Dr. Steinberg. Need to rule out acute coronary syndrome. Repeat troponin as well. Drew Amos M.D. DR: HELGA JOB#: [id number] CC:
--- NOTE | 2020-08-26 16:50 | NUR ---
NURSE NOTES: sent rapid covid swab test to lab. NO acute resp distress or discomfort during the test. will cont to monitor
--- NOTE | 2020-08-26 17:35 | NUR ---
CHEMISTRY LABORATORY TECHNICIAN NOTE FOLLOW UP CALL MADE TO [facility] IN RE TO REFERRAL FOR TRANSFER FOR CARDIAC CATH. S/W PRANEETH. PER PRANEETH, REFERRAL WILL BE REVIEWED AND [facility] WILL F/U WITH UNIT NURSE.
--- NOTE | 2020-08-26 18:54 | NUR ---
NURSE HAND-OFF REPORT: Important Events on Shift:[patient removed IV and PMD OKAY NO IV ACCESS, DCP TRANSFER TO [facility]. COVID NEGATIVE. CP AND NTG GIVEN ] Patient Status: [STABLE] Diet: [CARDIAC] Pending Orders: [D/C] Pending Results/Labs:[] Pending MD notification:[] Latest Vital Signs: Temperature 98.1 , Pulse 64 , B/P 122 /63 , Respiratory Rate 18 , O2 SAT 99 , Room Air, O2 Flow Rate . Vital Sign Comment: [] EKG Rhythm: Sinus Rhythm Rhythm change?: N MD Notified?: N - MD Response: Latest Mckeon Fall Score: 35 Fall Risk: Medium Risk Safety Measures: Call light Within Reach, Bed Alarm Zone 1, Side Rails Side Rails x2, Bed position Low and Locked. Fall Precautions: Yellow Socks Yellow Gown Door Sign Patient Fall Education Report given to [SAMM].
--- NOTE | 2020-08-26 19:00 | NUR ---
NURSE NOTES: Received pt from Chasidy AGUIRRE. Patient awake in bed comfortably in maribeth-fowlers. Alert oriented x 4; able to make need known. No acute distress noted at this time. No pain noted. Patient has no IV at this time PCP is aware. Patient would not like IV at this time. Patient is fully independent and able to eat and provide self hydration needs. Patient has SCD on. Patent is on fall precautions. Bed is locked and in lowest position. Call light with in reach. Patient educated to call nurse before attempting to get up. Will continue with plan of care.
[2020-08-26 20:00] VITALS: BP 120/67
[2020-08-26] MEDS: Atorvastatin 20mg tab ORAL SCH (20:36)
[2020-08-27] VITALS: BP 115/71
[2020-08-27 04:00] VITALS: BP 120/71
--- NOTE | 2020-08-27 07:00 | NUR ---
NURSE HAND-OFF REPORT: Important Events on Shift:None Patient Status: Stable Diet: Cardiac Pending Orders: Pending Results/Labs: Pending MD notification: Latest Vital Signs: Temperature 97.9 , Pulse 65 , B/P 120 /71 , Respiratory Rate 17 , O2 SAT 95 , Room Air, O2 Flow Rate . Vital Sign Comment: EKG Rhythm: Sinus Rhythm Rhythm change?: N MD Notified?: N - MD Response: Latest Mckeon Fall Score: 35 Fall Risk: Medium Risk Safety Measures: Call light Within Reach, Bed Alarm Zone 1, Side Rails Side Rails x2, Bed position Low and Locked. Fall Precautions: Yellow Socks Yellow Gown Door Sign Patient Fall Education Report given to Chasidy AGUIRRE.
--- NOTE | 2020-08-27 07:15 | NUR ---
NURSE NOTES: Received pt from PHILIP Minaya. Patient awake in bed calm and comfortable in supine position. A/A/Ox4. able to make needs known. No acute distress noted at this time. No pain/discomfort noted. no IV access and PMD is aware. Explained the indications and remained refused. Patient is fully independent and able to eat and provide self hydration needs. Patient has SCD on inplaced. on fall precautions. Bed is locked and in lowest position. Call light within reach. Patient educated to call nurse before attempting to get up. Will continue with plan of care.
[2020-08-27 08:00] VITALS: BP 120/72
[2020-08-27] MEDS: Aspirin Baby 81mg ORAL SCH (08:23)
[2020-08-27] MEDS: Carvedilol 25mg Tab ORAL SCH ×2 (08:23→20:16)
[2020-08-27] MEDS: Imdur 30mg tab ORAL SCH (08:24)
--- NOTE | 2020-08-27 09:09 | NUR ---
NURSE NOTES: Sent urine sample for U/A to lab. will cont to monitor.
[2020-08-27 09:38] LABS: APPEARANCE,URINE CLEAR; BILIRUBIN, URINE NEGATIVE (NEGATIVE); COLOR,URINE PALE YELLOW; GLUCOSE, URINE (UA) NEGATIVE (NEGATIVE); KETONES,URINE NEGATIVE (NEGATIVE); LEUKOCYTE ESTERASE ,URINE NEGATIVE (NEGATIVE); NITRITE,URINE NEGATIVE (NEGATIVE); PH,URINE 7 (4.5-8.0); PROTEIN,URINE NEGATIVE (NEGATIVE); UROBILINOGEN,URINE NORMAL MG/DL (0.0-1.0)
[2020-08-27 11:29] VITALS: BP 121/78
--- NOTE | 2020-08-27 12:46 | Pulmonology Progress Note ---
Subjective Interval Events: None new Constitutional: Reports: no symptoms HEENT: Repors: no symptoms Respiratory: Reports: no symptoms Cardiovascular: Reports: no symptoms Gastrointestinal/Abdominal: Reports: no symptoms Genitourinary: Reports: no symptoms Allergies: Coded Allergies: No Known Allergies (Unverified , 04/09/18) Objective Last 24 Hour Vital Signs Date Time Temp Pulse Resp B/P (MAP) Pulse Ox O2 Delivery O2 Flow Rate FiO2 08/27/20 11:29 96.4 59 20 121/78 (92) 97 08/27/20 09:00 Room Air 08/27/20 08:24 120/72 08/27/20 08:23 63 120/72 08/27/20 08:00 97.7 63 20 120/72 (88) 99 08/27/20 08:00 61 08/27/20 04:00 97.9 63 17 120/71 (87) 95 08/27/20 04:00 65 08/27/20 00:00 97.2 63 17 115/71 (86) 98 08/27/20 00:00 59 08/26/20 21:00 Room Air 08/26/20 20:36 67 120/67 08/26/20 20:00 97.3 67 17 120/67 (84) 95 08/26/20 20:00 73 08/26/20 16:00 64 08/26/20 15:35 98.1 64 18 122/63 (82) 99 08/26/20 15:11 126/74 Intake and Output 08/26/20 08/27/20 19:00 07:00 Intake Total 790 ml Balance 790 ml Intake Oral 790 ml # Voids 8 3 General Appearance: no acute distress HEENT: normocephalic Respiratory: chest wall non-tender, lungs clear Cardiovascular: normal peripheral pulses Abdomen: normal bowel sounds Microbiology Date/Time Source Procedure Growth Status 08/26/20 16:40 Nasopharynx SARS-CoV-2 RdRp Gene Assay - Final Complete Laboratory Tests 08/27/20 08:30: Urine Color Pale yellow, Urine Appearance Clear, Urine pH 7, Urine Specific [place] 1.010, Urine Protein Negative, Urine Glucose (UA) Negative, Urine Ketones Negative, Urine Blood Negative, Urine Nitrite Negative, Urine Bilirubin Negative, Urine Urobilinogen Normal, Urine Leukocyte Esterase Negative, Urine RBC 0, Urine WBC 0, Urine Squamous Epithelial Cells Occasional, Urine Bacteria None Current Medications Medications (Trade) Dose Ordered Sig/Sony Route PRN Reason Start Time Stop Time Status Last Admin Dose Admin Aspirin (ASA) 81 mg DAILY ORAL 08/25/20 09:00 10/09/20 08:59 08/27/20 08:23 Atorvastatin Calcium (Lipitor) 20 mg BEDTIME ORAL 08/25/20 21:00 11/23/20 20:59 08/26/20 20:36 Carvedilol (Coreg) 25 mg EVERY 12 HOURS ORAL 08/25/20 09:00 09/24/20 08:59 08/27/20 08:23 Clopidogrel Bisulfate (Plavix) 75 mg DAILY ORAL 08/25/20 09:00 09/24/20 08:59 08/27/20 08:24 Isosorbide Mononitrate (Imdur) 30 mg DAILY ORAL 08/26/20 09:00 09/25/20 08:59 08/27/20 08:24 Nitroglycerin (Ntg) 0.4 mg Q5M PRN SL Prn Chest Pain 08/25/20 22:15 09/24/20 22:14 08/26/20 15:11 Assessment/Plan Assessment/Plan MPRESSION: 1. Abnormal myocardial perfusion scan. 2. Chest pain. 3. CAD. 4. Hypertension. 5. Hyperlipidemia. DISCUSSION: Reviewed notes by Cardiology. I will follow pulmonary status. Above treatment plan discussed with supervising physician. Walt Frey NP Aug 27, 2020 12:46
[2020-08-27 15:38] VITALS: BP 114/74
--- NOTE | 2020-08-27 17:37 | Cardiac Electrophysiology PN ---
Assessment/Plan Assessment/Plan 1. Chest pain. The patient's troponin is negative on this admission. Patient has history of prior LAD stent in December as well as obtuse marginal branch in January of 2020 at [facility]. His stress test on 08/11/2020 was suggestive of anterior septal ischemia with reversible perfusion defect. Awaiting transfer to [facility] or [facility] if insurance approves for cardiac catheterization Echo showed EF of 60%. On Aspirin, Plavix, Coreg, Lipitor and Imdur 2. History of hypertension. Continue metoprolol and Lasix. 3. Hyperlipidemia, on Lipitor. 4. Lower extremity edema. There is no evidence of DVT Echo, normal EF. Continue low-dose Lasix. OLEGARIO RN and Dr Amos Subjective Subjective No chest pain or SOB. Awaiting transfer for cardiac cath Objective Last 24 Hour Vital Signs Date Time Temp Pulse Resp B/P (MAP) Pulse Ox O2 Delivery O2 Flow Rate FiO2 08/27/20 16:00 61 08/27/20 15:38 97.7 63 20 114/74 (87) 98 08/27/20 12:00 60 08/27/20 11:29 96.4 59 20 121/78 (92) 97 08/27/20 09:00 Room Air 08/27/20 08:24 120/72 08/27/20 08:23 63 120/72 08/27/20 08:00 97.7 63 20 120/72 (88) 99 08/27/20 08:00 61 08/27/20 04:00 97.9 63 17 120/71 (87) 95 08/27/20 04:00 65 08/27/20 00:00 97.2 63 17 115/71 (86) 98 08/27/20 00:00 59 08/26/20 21:00 Room Air 08/26/20 20:36 67 120/67 08/26/20 20:00 97.3 67 17 120/67 (84) 95 08/26/20 20:00 73 Intake and Output 08/26/20 08/27/20 19:00 07:00 Intake Total 790 ml Balance 790 ml Intake Oral 790 ml # Voids 8 3 Laboratory Tests Test 08/27/20 08:30 Urine Color Pale yellow Urine Appearance Clear Urine pH 7 (4.5-8.0) Urine Specific [place] 1.010 (1.005-1.035) Urine Protein Negative (NEGATIVE) Urine Glucose (UA) Negative (NEGATIVE) Urine Ketones Negative (NEGATIVE) Urine Blood Negative (NEGATIVE) Urine Nitrite Negative (NEGATIVE) Urine Bilirubin Negative (NEGATIVE) Urine Urobilinogen Normal MG/DL (0.0-1.0) Urine Leukocyte Esterase Negative (NEGATIVE) Urine RBC 0 /HPF (0 - 0) Urine WBC 0 /HPF (0 - 0) Urine Squamous Epithelial Cells Occasional /LPF Urine Bacteria None /HPF (NONE) Microbiology Date/Time Source Procedure Growth Status 08/26/20 16:40 Nasopharynx SARS-CoV-2 RdRp Gene Assay - Final Complete Objective HEENT: No JVD LUNGS: Clear CVS: RRR ABD: soft EXT: Less edema Stephen Fallon MD Aug 27, 2020 17:37
--- NOTE | 2020-08-27 19:05 | NUR ---
NURSE HAND-OFF REPORT: Important Events on Shift:[U/A SENT TO LAB, NO IV ACCESS MD AWARE, SAFETY MEASURES, MONITOR FOR CP. ] Patient Status: [IMPROVING] Diet: [CARDIAC] Pending Orders: [NONE] Pending Results/Labs:[] Pending MD notification:[] Latest Vital Signs: Temperature 97.7 , Pulse 61 , B/P 114 /74 , Respiratory Rate 20 , O2 SAT 98 , Room Air, O2 Flow Rate . Vital Sign Comment: [] EKG Rhythm: Sinus Rhythm Rhythm change?: N MD Notified?: N - MD Response: Latest Mckeon Fall Score: 35 Fall Risk: Medium Risk Safety Measures: Call light Within Reach, Bed Alarm Zone 1, Side Rails Side Rails x2, Bed position Low and Locked. Fall Precautions: Yellow Socks Yellow Gown Door Sign Patient Fall Education Report given to [JHAR].
--- NOTE | 2020-08-27 19:07 | NUR ---
NURSE NOTES: Patient received from CARLA Umaña. Patient is awake, alert and oriented x 4. Patient is talkative and able to verbalize his needs. Patient has no complaints at the moment. Patient has no IV access. Patient is on room air satting at 97%. Bed is in the lowest position, call light within reach. Will continue to monitor.
[2020-08-27 20:00] VITALS: BP 125/65
--- NOTE | 2020-08-27 20:10 | NUR ---
NURSE NOTES: Patient asked for Tylenol for headache. Contacted Dr. Amos. Awaiting for call back.
[2020-08-27] MEDS: Atorvastatin 20mg tab ORAL SCH (20:17)
--- NOTE | 2020-08-27 20:33 | General Progress Note ---
Subjective ROS Limited/Unobtainable: Yes Allergies: Coded Allergies: No Known Allergies (Unverified , 04/09/18) Objective Last 24 Hour Vital Signs Date Time Temp Pulse Resp B/P (MAP) Pulse Ox O2 Delivery O2 Flow Rate FiO2 08/27/20 20:16 63 125/65 08/27/20 16:00 61 08/27/20 15:38 97.7 63 20 114/74 (87) 98 08/27/20 12:00 60 08/27/20 11:29 96.4 59 20 121/78 (92) 97 08/27/20 09:00 Room Air 08/27/20 08:24 120/72 08/27/20 08:23 63 120/72 08/27/20 08:00 97.7 63 20 120/72 (88) 99 08/27/20 08:00 61 08/27/20 04:00 97.9 63 17 120/71 (87) 95 08/27/20 04:00 65 08/27/20 00:00 97.2 63 17 115/71 (86) 98 08/27/20 00:00 59 08/26/20 21:00 Room Air 08/26/20 20:36 67 120/67 Intake and Output 08/26/20 08/27/20 19:00 07:00 Intake Total 790 ml Balance 790 ml Intake Oral 790 ml # Voids 8 3 Laboratory Tests 08/27/20 08:30: Urine Color Pale yellow, Urine Appearance Clear, Urine pH 7, Urine Specific [place] 1.010, Urine Protein Negative, Urine Glucose (UA) Negative, Urine Ketones Negative, Urine Blood Negative, Urine Nitrite Negative, Urine Bilirubin Negative, Urine Urobilinogen Normal, Urine Leukocyte Esterase Negative, Urine RBC 0, Urine WBC 0, Urine Squamous Epithelial Cells Occasional, Urine Bacteria None Height (Feet): 5 Height (Inches): 11.00 Weight (Pounds): 182 Assessment/Plan Problem List: (1) HTN (hypertension) ICD Codes: I10 - Essential (primary) hypertension SNOMED: 14029924 (2) CAD (coronary artery disease) ICD Codes: I25.10 - Atherosclerotic heart disease of [place] coronary artery without angina pectoris SNOMED: 36688412 (3) Lower extremity edema ICD Codes: R60.0 - Localized edema SNOMED: 606017658, 47732507 (4) Chest pain ICD Codes: R07.9 - Chest pain, unspecified SNOMED: 06733524 Status: progressing Assessment/Plan: afebrile nac no cp cardiac cath per community worker.he wrote the transfer order Drew Amos MD Aug 27, 2020 20:33
[2020-08-27] MEDS: Acetaminophen 500mg (ES) tab ORAL PRN (22:45)
[2020-08-28] VITALS (7 sets, daily range): BP systolic 106–131; BP diastolic 60–75
[2020-08-28] MEDS: Acetaminophen 500mg (ES) tab ORAL PRN ×2 (03:29→08:32)
--- NOTE | 2020-08-28 07:41 | NUR ---
NURSE NOTES: Pt received from Kole RN. Pt in bed awake and alert, breakfast tray eaten at bedside. No complaint of chest pain at this time. bed low and locked. no bed alarm as he is ambulatory. Call light within reach.
--- NOTE | 2020-08-28 07:45 | NUR ---
NURSE HAND-OFF REPORT: Important Events on Shift:[Patient ask for Tylenol for his headache.] Patient Status: [] Diet: [Cardiac diet] Pending Orders: [] Pending Results/Labs:[] Pending MD notification:[] Latest Vital Signs: Temperature 97.4 , Pulse 56 , B/P 131 /71 , Respiratory Rate 18 , O2 SAT 99 , Room Air, O2 Flow Rate . Vital Sign Comment: [] EKG Rhythm: Sinus Bradycardia Rhythm change?: N MD Notified?: N - MD Response: Latest Mckeon Fall Score: 35 Fall Risk: Medium Risk Safety Measures: Call light Within Reach, Bed Alarm Zone 1, Side Rails Side Rails x2, Bed position Low and Locked. Fall Precautions: Yellow Socks Yellow Gown Door Sign Patient Fall Education Report given to [PHILIP Redman].
[2020-08-28] MEDS: Carvedilol 25mg Tab ORAL SCH (08:09)
--- NOTE | 2020-08-28 08:10 | NUR ---
NURSE NOTES: Coreg held, hr 54bpm. Additionally, BP only 114/75.
[2020-08-28] MEDS: Aspirin Baby 81mg ORAL SCH (08:29)
[2020-08-28] MEDS: Imdur 30mg tab ORAL SCH (08:31)
--- NOTE | 2020-08-28 09:02 | NUR ---
TRANSFER UPDATE CALLED [facility] AND SPOKE WITH CLERICAL TRANSCRIBER, CHRISTA. PER CHRISTA, THEY NEVER RECEIVED THE FAX [facility]ER[facility]ANSCR[facility]ER T: [phone] F: [phone]
--- NOTE | 2020-08-28 10:49 | Pulmonology Progress Note ---
Subjective ROS Limited/Unobtainable: Yes Interval Events: None new Constitutional: Reports: no symptoms HEENT: Repors: no symptoms Respiratory: Reports: no symptoms Cardiovascular: Reports: no symptoms Gastrointestinal/Abdominal: Reports: no symptoms Genitourinary: Reports: no symptoms Allergies: Coded Allergies: No Known Allergies (Unverified , 04/09/18) Objective Last 24 Hour Vital Signs Date Time Temp Pulse Resp B/P (MAP) Pulse Ox O2 Delivery O2 Flow Rate FiO2 08/28/20 09:02 98.2 08/28/20 08:31 114/75 08/28/20 08:00 98.2 52 18 114/75 (88) 98 08/28/20 08:00 52 08/28/20 04:00 97.4 58 18 131/71 (91) 99 08/28/20 04:00 56 08/28/20 00:00 58 08/28/20 00:00 97.7 68 18 115/71 (86) 98 08/27/20 21:00 Room Air 08/27/20 20:16 63 125/65 08/27/20 20:00 97.9 63 18 125/65 (85) 97 08/27/20 20:00 83 08/27/20 16:00 61 08/27/20 15:38 97.7 63 20 114/74 (87) 98 08/27/20 12:00 60 08/27/20 11:29 96.4 59 20 121/78 (92) 97 Intake and Output 08/27/20 08/28/20 19:00 07:00 Intake Total 1060 ml 240 ml Output Total 300 ml Balance 760 ml 240 ml Intake Oral 1060 ml 240 ml Output Urine Total 300 ml # Voids 3 3 # Bowel Movements 1 General Appearance: no acute distress HEENT: normocephalic Respiratory: chest wall non-tender, lungs clear Cardiovascular: normal peripheral pulses Abdomen: normal bowel sounds Microbiology Date/Time Source Procedure Growth Status 08/26/20 16:40 Nasopharynx SARS-CoV-2 RdRp Gene Assay - Final Complete Current Medications Medications (Trade) Dose Ordered Sig/Sony Route PRN Reason Start Time Stop Time Status Last Admin Dose Admin Acetaminophen (Tylenol) 500 mg Q4H PRN ORAL Mild Pain (Pain Scale 1-3) 08/27/20 22:30 09/26/20 22:29 08/28/20 08:32 Aspirin (ASA) 81 mg DAILY ORAL 08/25/20 09:00 10/09/20 08:59 08/28/20 08:29 Atorvastatin Calcium (Lipitor) 20 mg BEDTIME ORAL 08/25/20 21:00 11/23/20 20:59 08/27/20 20:17 Carvedilol (Coreg) 25 mg EVERY 12 HOURS ORAL 08/25/20 09:00 09/24/20 08:59 08/27/20 20:16 Clopidogrel Bisulfate (Plavix) 75 mg DAILY ORAL 08/25/20 09:00 09/24/20 08:59 08/28/20 08:29 Isosorbide Mononitrate (Imdur) 30 mg DAILY ORAL 08/26/20 09:00 09/25/20 08:59 08/28/20 08:31 Nitroglycerin (Ntg) 0.4 mg Q5M PRN SL Prn Chest Pain 08/25/20 22:15 09/24/20 22:14 08/26/20 15:11 Assessment/Plan Assessment/Plan IMPRESSION: 1. Abnormal myocardial perfusion scan. 2. Chest pain. 3. CAD. 4. Hypertension. 5. Hyperlipidemia. DISCUSSION: Noted that previous myocardial perfusion scan is abnormal. Reviewed notes by Cardiology. I will follow carefully. Respiratory status is stable. Calin Cervantes Omar Syed MD Aug 28, 2020 10:49
--- NOTE | 2020-08-28 12:37 | Cardiac Electrophysiology PN ---
Assessment/Plan Assessment/Plan 1. Chest pain. The patient's troponin is negative on this admission. Patient has history of prior LAD stent in December as well as obtuse marginal branch in January of 2020 at [facility]. His stress test on 08/11/2020 was suggestive of anterior septal ischemia with reversible perfusion defect. Awaiting transfer to [facility] or [facility] if insurance approves for cardiac catheterization Echo showed EF of 60%. On Aspirin, Plavix, Coreg, Lipitor and Imdur 2. Hypertension. Decrease Coreg to 12.5 bid 3. Hyperlipidemia, on Lipitor. 4. Lower extremity edema. There is no evidence of DVT Echo, normal EF. Continue low-dose Lasix. OLEGARIO RN and Dr Amos Subjective Subjective No chest pain or SOB. Awaiting transfer for cardiac cath . Coreg was held as was shahid down to 54. BP also around 100 Objective Last 24 Hour Vital Signs Date Time Temp Pulse Resp B/P (MAP) Pulse Ox O2 Delivery O2 Flow Rate FiO2 08/28/20 12:00 97.9 57 20 106/73 (84) 97 08/28/20 09:02 98.2 08/28/20 09:00 Room Air 08/28/20 08:31 114/75 08/28/20 08:00 98.2 52 18 114/75 (88) 98 08/28/20 08:00 52 08/28/20 04:00 97.4 58 18 131/71 (91) 99 08/28/20 04:00 56 08/28/20 00:00 58 08/28/20 00:00 97.7 68 18 115/71 (86) 98 08/27/20 21:00 Room Air 08/27/20 20:16 63 125/65 08/27/20 20:00 97.9 63 18 125/65 (85) 97 08/27/20 20:00 83 08/27/20 16:00 61 08/27/20 15:38 97.7 63 20 114/74 (87) 98 Intake and Output 08/27/20 08/28/20 19:00 07:00 Intake Total 1060 ml 240 ml Output Total 300 ml Balance 760 ml 240 ml Intake Oral 1060 ml 240 ml Output Urine Total 300 ml # Voids 3 3 # Bowel Movements 1 Microbiology Date/Time Source Procedure Growth Status 08/26/20 16:40 Nasopharynx SARS-CoV-2 RdRp Gene Assay - Final Complete Objective HEENT: No JVD LUNGS: Clear CVS: RRR ABD: soft EXT: Less edema Stephen Fallon MD Aug 28, 2020 12:37
--- NOTE | 2020-08-28 12:50 | Consultation ---
History of Present Illness General Chief Complaint: Edema Present Illness Allergies: Coded Allergies: No Known Allergies (Unverified , 04/09/18) Medication History Scheduled Aspirin* (Aspirin*), 81 MG ORAL DAILY, (Reported) Atorvastatin Calcium* (Atorvastatin Calcium*), 20 MG ORAL BEDTIME, (Reported) Carvedilol (Coreg), 25 MG ORAL DAILY, (Reported) Carvedilol* (Carvedilol*), 12.5 MG ORAL EVERY 12 HOURS, (Reported) Clopidogrel Bisulfate* (Plavix*), 75 MG ORAL DAILY, (Reported) Isosorbide Mononitrate (Isosorbide Mononitrate Er), 30 MG PO DAILY, (Reported) Scheduled PRN Nitroglycerin 0.4MG table* (Nitroglycerin*), 0.4 MG SL .Q5MIN X 3 DOSES PRN for CHEST PAIN, (Reported) Patient History Healthcare decision maker Resuscitation status Advanced Directive on File Physical Exam Last 24 Hour Vital Signs Date Time Temp Pulse Resp B/P (MAP) Pulse Ox O2 Delivery O2 Flow Rate FiO2 08/28/20 12:00 56 08/28/20 12:00 97.9 57 20 106/73 (84) 97 08/28/20 09:02 98.2 08/28/20 09:00 Room Air 08/28/20 08:31 114/75 08/28/20 08:00 98.2 52 18 114/75 (88) 98 08/28/20 08:00 52 08/28/20 04:00 97.4 58 18 131/71 (91) 99 08/28/20 04:00 56 08/28/20 00:00 58 08/28/20 00:00 97.7 68 18 115/71 (86) 98 08/27/20 21:00 Room Air 08/27/20 20:16 63 125/65 08/27/20 20:00 97.9 63 18 125/65 (85) 97 08/27/20 20:00 83 08/27/20 16:00 61 08/27/20 15:38 97.7 63 20 114/74 (87) 98 Intake and Output 08/27/20 08/28/20 19:00 07:00 Intake Total 1060 ml 240 ml Output Total 300 ml Balance 760 ml 240 ml Intake Oral 1060 ml 240 ml Output Urine Total 300 ml # Voids 3 3 # Bowel Movements 1 Height (Feet): 5 Height (Inches): 11.00 Weight (Pounds): 182 Medications Current Medications Medications (Trade) Dose Ordered Sig/Sony Route PRN Reason Start Time Stop Time Status Last Admin Dose Admin Acetaminophen (Tylenol) 500 mg Q4H PRN ORAL Mild Pain (Pain Scale 1-3) 08/27/20 22:30 09/26/20 22:29 08/28/20 08:32 Aspirin (ASA) 81 mg DAILY ORAL 08/25/20 09:00 10/09/20 08:59 08/28/20 08:29 Atorvastatin Calcium (Lipitor) 20 mg BEDTIME ORAL 08/25/20 21:00 11/23/20 20:59 08/27/20 20:17 Carvedilol (Coreg) 12.5 mg EVERY 12 HOURS ORAL 08/28/20 21:00 09/24/20 08:59 UNV Clopidogrel Bisulfate (Plavix) 75 mg DAILY ORAL 08/25/20 09:00 09/24/20 08:59 08/28/20 08:29 Isosorbide Mononitrate (Imdur) 30 mg DAILY ORAL 08/26/20 09:00 09/25/20 08:59 08/28/20 08:31 Nitroglycerin (Ntg) 0.4 mg Q5M PRN SL Prn Chest Pain 08/25/20 22:15 09/24/20 22:14 08/26/20 15:11 Assessment/Plan Assessment/Plan: (1) Chest pain (2) R/O ACS seen dictated Pascual Chu Aug 28, 2020 12:50
--- NOTE | 2020-08-28 14:54 | CDS Physician Query ---
Clarification is required for compliance, coding accuracy, and to reflect severity of illness for this patient Dear Dr.Ali Bette M.D. Date 08/28/20 CDI/CDS' Carrillo Blanca 59YOM is admitted for chest pain, rule out acute coronary syndrome. The patient basically has been having a history of cardiac disease and high blood pressure and high cholesterol and moderate to high risk for acute coronary syndrome. ASSESSMENT: Chest pain. The patient's troponin is negative on this admission. Patient has history of prior LAD stent in December as well as obtuse marginal branch in January of 2020 at [facility]. His stress test on 08/11/2020 was suggestive of anterior septal ischemia with reversible perfusion defect. [ Cardio PN Stephen Fallon MD 08/28/20 1237] Echo showed EF of 60%. On Aspirin, Plavix, Coreg, Lipitor LABORATORY DATA: WBC of 10.3, hemoglobin 14.3, platelets 234. Sodium 139, potassium 3.6, BUN of 13, creatinine 1.4, glucose of 93. Troponin 0.056. Please document the suspected etiology of Chest Pain: [] Aortic dissection [] Acute myocardial infarction [] Acute Coronary Syndrome [] Pericarditis [] Anxiety [] Cancer [] Pneumonia [] Costochondritis [] Pneumothorax [] GERD/Esophagitis [] Pulmonary embolism [] Other: [] Unable to determine Present on Admission: [] Yes [] No [] Clinically Undetermined Physician signature Date Please also document in your Progress Notes and/or Discharge Summary and indicate if the condition was present on admission. MARY
--- NOTE | 2020-08-28 16:05 | NUR ---
CASE MANAGEMENT:REVIEW 08/28/20 SI:CHEST PAIN. CAD. HTN. H/O ANTERIOR SEPTAL ISCHEMIA. S/P STENT PLACEMENT 98.2 52 18 114/75 98% ON RA IS:COREG PO Q12 (DOSE DECREASED) IMDUR PO QD NTG SL PRN LIPITOR PO QHS PLAVIX PO QD ASA PO QD : TELEMETRY STATUS PLAN: TRANSFER TO HIGHER LEVEL OF CARE FOR CARDIAC CATH
--- NOTE | 2020-08-28 16:14 | NUR ---
TRANSFER UPDATE SPOKE WITH [facility] WHO ASSURED THIS MATERIAL LOADER THAT THERE WILL BE A BED AVAILABLE [facility] STATION PHONE NUMBER ONCE BED BECOMES AVAILABLE.....CALL [facility] FOR ACLS TRANSPORT
[2020-08-28] MEDS ORDERED: CARVEDILOL12.5 MG ORAL (17:52)
[2020-08-28] MEDS ORDERED: ISOSORBIDE MONO30 M1 PO (17:53)
[2020-08-28] MEDS ORDERED: NITRO0.4 SL (17:54)
--- NOTE | 2020-08-28 18:30 | NUR ---
NURSE NOTES: Gave report to Yumi PALACIOS at [facility]. Per RN, leave IV, therefore IV not removed.
--- NOTE | 2020-08-28 18:45 | NUR ---
NURSE NOTES: Gave D/C packet and got signatures from pt. Pt reports 8/10 headache and asks for something stronger than tylenol. Vitals normal bp 128/74 and HR 67. Called Mr. Vlad [place]. Per him, give tylenol 650 for now.
--- NOTE | 2020-08-28 18:48 | NUR ---
[facility] called for ACLS transport. requested for 7:30PM manager supply chain planning; per [facility] they need to call [facility] for approval. Will call unit back as soon as they received a call from [facility].
--- NOTE | 2020-08-28 19:26 | NUR ---
NURSE HAND-OFF REPORT: Important Events on Shift:[5/10 headache in morning, 8/10 headache 30 minutes ago. Contacted Vlad got tylenol 650mg; will be transporting to [facility] within the hour] Patient Status: [stable] Diet: [cardiac] Pending Orders: [] Pending Results/Labs:[] Pending MD notification:[] Latest Vital Signs: Temperature 97.5 , Pulse 55 , B/P 118 /60 , Respiratory Rate 18 , O2 SAT 98 , Room Air, O2 Flow Rate . Vital Sign Comment: [] EKG Rhythm: Sinus Bradycardia Rhythm change?: N MD Notified?: N - MD Response: Latest Mckeon Fall Score: 35 Fall Risk: Medium Risk Safety Measures: Call light Within Reach, Bed Alarm Zone 1, Side Rails Side Rails x2, Bed position Low and Locked. Fall Precautions: Yellow Socks Yellow Gown Door Sign Patient Fall Education Report given to [Kole RN].
--- NOTE | 2020-08-28 19:30 | NUR ---
NURSE NOTES: Patient received from PHILIP Redman. Patient is awake, alert and oriented x 4. Patient is talkative and asking when he is going to be transferred. Patient is aware that he is going to be picked up by an ambulance to another facility tonight for a procedure. No acute signs of distress noted. Patient has a 22 gauge IV access on his right hand. Bed is in the lowest position, call light within reach. Will continue to monitor.
--- NOTE | 2020-08-28 20:05 | General Progress Note ---
Subjective ROS Limited/Unobtainable: Yes Allergies: Coded Allergies: No Known Allergies (Unverified , 04/09/18) Objective Last 24 Hour Vital Signs Date Time Temp Pulse Resp B/P (MAP) Pulse Ox O2 Delivery O2 Flow Rate FiO2 08/28/20 16:00 55 08/28/20 16:00 97.5 77 18 118/60 (79) 98 08/28/20 12:00 56 08/28/20 12:00 97.9 57 20 106/73 (84) 97 08/28/20 09:02 98.2 08/28/20 09:00 Room Air 08/28/20 08:31 114/75 08/28/20 08:00 98.2 52 18 114/75 (88) 98 08/28/20 08:00 52 08/28/20 04:00 97.4 58 18 131/71 (91) 99 08/28/20 04:00 56 08/28/20 00:00 58 08/28/20 00:00 97.7 68 18 115/71 (86) 98 08/27/20 21:00 Room Air 08/27/20 20:16 63 125/65 Intake and Output 08/27/20 08/28/20 19:00 07:00 Intake Total 1060 ml 240 ml Output Total 300 ml Balance 760 ml 240 ml Intake Oral 1060 ml 240 ml Output Urine Total 300 ml # Voids 3 3 # Bowel Movements 1 Height (Feet): 5 Height (Inches): 11.00 Weight (Pounds): 182 Assessment/Plan Problem List: (1) HTN (hypertension) ICD Codes: I10 - Essential (primary) hypertension SNOMED: 38871681 (2) CAD (coronary artery disease) ICD Codes: I25.10 - Atherosclerotic heart disease of cahto coronary artery without angina pectoris SNOMED: 69613169 (3) Lower extremity edema ICD Codes: R60.0 - Localized edema SNOMED: 703614145, 38175365 (4) Chest pain ICD Codes: R07.9 - Chest pain, unspecified SNOMED: 78753525 Status: progressing Assessment/Plan: afebrile cardiac cath per waterfront director.he wrote the transfer order see dc summary Drew Amos MD Aug 28, 2020 20:05
[2020-08-28] MEDS ORDERED: Carvedilol 12.5mg tab ORAL SCH (21:00)
[2020-08-28] MEDS: Atorvastatin 20mg tab ORAL SCH (21:03)
--- NOTE | 2020-08-28 23:50 | NUR ---
NURSE NOTES: Patient picked up ambulance transportation via two personnel. Transferred to [facility] as ordered. Patient is stable upon discharge. Belongings list was signed by the patient. Patient left with an IV on his right forearm 22 gauge. lead electrical engineer and patient ID band has been removed.
--- NOTE | 2020-08-29 03:00 | Consultation ---
DATE OF CONSULTATION: 08/28/2020 PAIN MANAGEMENT CONSULTATION CONSULTING PHYSICIAN: Riya Tripp MD. REFERRING PHYSICIAN: Drew Amos MD. PHYSICIAN POKER PROP PLAYER: CHELY Reyna. CHIEF COMPLAINT: Chest pain. HISTORY OF PRESENT ILLNESS: This is a 59-year-old male who is being seen on the telemetry floor of [facility] for initial pain management consultation. The patient was admitted under the care of Dr. Amos due to chest pain, being seen by radio television technical director as well as a front desk associate for this issues. At this time, the patient is lying in bed. Denies any pain. He is on Tylenol 500 mg tablet every four hours as needed for pain. We were consulted so that the patient have adequate pain control while here in the hospital. PAST MEDICAL HISTORY: Hypertension, hyperlipidemia, coronary artery disease. SOCIAL HISTORY: Denies smoking tobacco, drinking alcohol, or IV drug abuse. ALLERGIES: No known drug allergies. MEDICATIONS: Aspirin, atorvastatin, Coreg, Plavix, isosorbide, nitroglycerin. REVIEW OF SYSTEMS: Denies rash, fever, chills, sweating, dizziness, drowsiness, blurred vision, sore throat, or change in weight. No nausea, vomiting, diarrhea, or blood in the stool. No dysuria. PHYSICAL EXAMINATION: GENERAL: Alert, awake, and oriented. VITAL SIGNS: Blood pressure 106/73, heart rate 67, oxygen saturation 97%, respiratory rate 20, and temperature is 97.9 degrees Fahrenheit. HEENT: PERRLA. NECK: Range of motion is full in all directions. No tenderness to paracervical muscles. No adenopathy. LUNGS: Decreased breath sounds bilaterally. HEART: S1 and S2 regular. ABDOMEN: Soft and nontender. EXTREMITIES: No cyanosis. No clubbing. No edema. NEUROLOGIC: No focal deficit. ASSESSMENT: The patient is a 59-year-old male with chest pain, rule out ACS. The patient will be continued on Tylenol as needed. The patient was discussed with Dr. Tripp and Dr. Tripp concurred. We will follow up with the patient. Thank you very much for the courtesy of this consultation. Riya Tripp M.D. CHELY Reyna DR: Nieves JOB#: [id number] CC: MARY
--- NOTE | 2020-08-30 14:30 | Discharge Summary ---
Discharge Summary Discharge Summary _ DATE OF ADMISSION: 08/24/2020 DATE OF DISCHARGE: 08/28/2020 DISCHARGED BY: Dr. Amos REASON FOR ADMISSION: 59 years old male with past medical history of hypertension, coronary artery disease, prior LAD stent, high cholesterol, history of CVA, presented with chest pain, shortness of breath and lower extremity edema. Chest pain reported as intermittent. No fever or chills. No cough. Patient was admitted few weeks ago for the same reason, and nuclear scan demonstrated area of reversible ischemia. At that time patient declined to wait for transfer to a higher level of care for cardiac catheterization. In emergency department vital signs were stable. Troponin negative, pro BNP 18. EKG revealed sinus rhythm , no acute ischemic changes. Chest x-ray revealed no acute cardiopulmonary pathology. Laboratory work-up revealed no leukocytosis, stable hemoglobin ,hematocrit and platelet count. Stable electrolytes BUN 13, creatinine 1.4. Urinalysis unremarkable. Patient subsequently admitted to telemetry floor for further management. CONSULTANTS: social studies department chair Dr. Mariscal pulmonary Dr. Quiroga pain specialist Dr. Tripp [facility] COURSE: Patient admitted to telemetry floor. Serial troponin were negative. Treating Engineer Helper closely followed. Patient with a known history of CAD with prior LAD stent in December as well as obtuse marginal branch in January 2020 at [facility]. Nuclear stress test on 08/11 was suggestive of anterior septal ischemia with reversible perfusion defect. Echocardiogram showed preserved ejection fraction. Patient was on dual antiplatelet therapy with aspirin and Plavix, beta-blockade statin and Imdur. Treating Engineer Helper strongly recommended transfer to a higher level of care for cardiac catheterization. Antihypertensive regimen was titrated to keep blood pressure under control. Venous Duplex bilateral lower extremity revealed no evidence of acute DVT. Supplemental oxygen provided as needed to keep pulse oximetry above 92% Pain management was addressed as per pain specialist recommendation. Supportive care provided. Placement was arranged to [facility] for cardiac catheterization. Patient was stable for transfer. FINAL DIAGNOSES: Chest pain in patient with CAD Coronary artery disease with history of prior LAD Abnormal myocardial perfusion scan ( with anterior septal ischemia and reversible perfusion defect) Hypertension Hyperlipidemia Lower extremity edema DISCHARGE MEDICATIONS: See Medication Reconciliation list. DISCHARGE INSTRUCTIONS: Patient was transferred to [facility] for cardiac catheterization I have been assigned to dictate discharge summary for this account. I was not involved in the patient's management. Dasia Feng NP Aug 30, 2020 14:30
== END 2020-08-28 23:40 | DRG 198 ==
LOC: EMR 21:55 → 2E 23:24 → EDBEDREQ 08-25 00:39 → 2E 08-25 00:59
DX: R07.9 Chest pain, unspecified (principal); I25.10 Atherosclerotic heart disease of native coronary artery without angina pectoris; I10 Essential (primary) hypertension; E78.5 Hyperlipidemia, unspecified; Z95.5 Presence of coronary angioplasty implant and graft; Z79.02 Long term (current) use of antithrombotics/antiplatelets; Z79.82 Long term (current) use of aspirin; Z86.73 Personal history of transient ischemic attack (TIA), and cerebral infarction without residual deficits
CPT/HCPCS: 36415; 71045; 80053; 80061; 81001; 82977; 83036; 83735; 83880; 84100; 84484; 84550; 85025; 86140; 93005; 93970; 96374; 99285; U0002

== ENCOUNTER 2020-09-14 21:12 | Emergency (ER) | payer MEDICAID ==
[~2020-09-14] VITALS: Ht 182.9 cm; Wt 99.8 kg
[~2020-09-14 21:12] MED LIST changes: +CARVEDILOL12.5 MG ORAL; +COREG25 MG ORAL; +ISOSORBIDE MONO30 M1 PO; +NITRO0.4 SL
[2020-09-14 21:22] VITALS: BP 139/70
[2020-09-14 22:19] LABS: EOSINOPHILS % (AUTO) 2.3 % (0.0-3.0); HEMATOCRIT 37.5 % (42.0-52.0); LYMPHOCYTES % (AUTO) 23.5 % (20.0-45.0); MEAN CORPUSCULAR VOLUME 97 FL (80-99); MONOCYTES % (AUTO) 6.6 % (1.0-10.0); NEUTROPHILS % (AUTO) 66.5 % (45.0-75.0); PLATELET COUNT 207 K/UL (150-450); RED BLOOD COUNT 3.88 M/UL (4.70-6.10); RED CELL DISTRIBUTION WIDTH 13.3 % (11.6-14.8); WHITE BLOOD COUNT 8.5 K/UL (4.8-10.8)
--- NOTE | 2020-09-14 22:39 | Emergency Room Report ---
History of Present Illness General Chief Complaint: Pain Source: Patient Present Illness HPI Patient is a 59-year-old male presents for increased bilateral lower extremity swelling. Gradual onset of symptoms. Reports having run out of diuretic and previously been taking medications. Denies any fever. Denies any chest discomfort. Intermittent shortness of breath. Allergies: Coded Allergies: No Known Allergies (Unverified , 04/09/18) COVID-19 Screening Contact w/high risk pt: No Experienced COVID-19 symptoms?: No COVID-19 Testing performed DRIVER GUIDE: Yes - 08/26/20 COVID-19 Screening: Negative COVID-19 COVID-19 Testing Source: [facility] Patient History Past Medical History: see triage record Reviewed Nursing Documentation: PMH: Agreed; PSxH: Agreed Nursing Documentation-PMH Hx Hypertension: No Hx Pacemaker: No Hx COPD: No Hx Diabetes: No - family hx Hx Cancer: No - family hx Hx Gastrointestinal Problems: No Hx Dialysis: No Hx Neurological Problems: No Hx Cerebrovascular Accident: Yes Hx Seizures: No Review of Systems All Other Systems: negative except mentioned in HPI Physical Exam Vital Signs Date Time Temp Pulse Resp B/P (MAP) Pulse Ox O2 Delivery O2 Flow Rate FiO2 09/14/20 21:14 97.7 87 19 140/73 (95) 97 Room Air Sp02 EP Interpretation: reviewed, normal General Appearance: normal inspection, well appearing, no apparent distress, alert, GCS 15, non-toxic Head: atraumatic ENT: normal ENT inspection, hearing grossly normal, normal voice Neck: normal inspection, full range of motion, supple, no bony tend Respiratory: normal inspection, lungs clear, normal breath sounds, no respiratory distress, no retraction, no wheezing Cardiovascular #1: regular rate, rhythm, no edema Gastrointestinal: normal inspection, normal bowel sounds, non tender, soft, no guarding, no hernia Genitourinary: no CVA tenderness Musculoskeletal: normal inspection, back normal, normal range of motion Neurologic: alert, motor strength/tone normal, primer inspector III-XII nml as tested, oriented x3, responsive, speech normal, normal inspection Psychiatric: normal inspection, judgement/insight normal, mood/affect normal Medical Decision Making Diagnostic Impression: Primary Impression: Lower extremity edema ER Course Presented for lower extremity swelling. Differential diagnosis include was not limited to dependent edema, anasarca, allergic reaction among others. Patient had prior history of similar symptoms in the past. Previous echocardiogram showed a preserved ejection fraction. Patient appears to be stable for outpatient management. He was given prescription for hydrochlorothiazide. He is advised to return if worse. This medical record is generated with [employer] caul puller software. There may be some caul puller discrepancies related to use of this software Labs Test 09/14/20 21:55 White Blood Count 8.5 K/UL (4.8-10.8) Red Blood Count 3.88 M/UL (4.70-6.10) Hemoglobin 13.0 G/DL (14.2-18.0) Hematocrit 37.5 % (42.0-52.0) Mean Corpuscular Volume 97 FL (80-99) Mean Corpuscular Hemoglobin 33.5 PG (27.0-31.0) Mean Corpuscular Hemoglobin Concent 34.6 G/DL (32.0-36.0) Red Cell Distribution Width 13.3 % (11.6-14.8) Platelet Count 207 K/UL (150-450) Mean Platelet Volume 8.1 FL (6.5-10.1) Neutrophils (%) (Auto) 66.5 % (45.0-75.0) Lymphocytes (%) (Auto) 23.5 % (20.0-45.0) Monocytes (%) (Auto) 6.6 % (1.0-10.0) Eosinophils (%) (Auto) 2.3 % (0.0-3.0) Basophils (%) (Auto) 1.0 % (0.0-2.0) EKG Diagnostic Results Rate: normal Rhythm: NSR ST Segments: no acute changes Last Vital Signs Date Time Temp Pulse Resp B/P (MAP) Pulse Ox O2 Delivery O2 Flow Rate FiO2 09/14/20 21:22 97.7 88 19 139/70 97 Room Air Status: improved Disposition: HOME, SELF-CARE Condition: Stable Referrals: NOT CHOSEN IPA/,REFERRING (PCP) Asher Acuna MD Sep 14, 2020 22:38
[2020-09-14 22:44] LABS: ALANINE AMINOTRANSFERASE 23 U/L (12-78); ALBUMIN 3.3 G/DL (3.4-5.0); ALBUMIN/GLOBULIN RATIO 1.1 (1.0-2.7); ALKALINE PHOSPHATASE 72 U/L (46-116); ANION GAP 6 mmol/L (5-15); ASPARTATE AMINO TRANSFERASE 16 U/L (15-37); BILIRUBIN,TOTAL 0.3 MG/DL (0.2-1.0); BLOOD UREA NITROGEN 12 mg/dL (7-18); CALCIUM 8.3 MG/DL (8.5-10.1); CARBON DIOXIDE 30 MMOL/L (21-32); CHLORIDE 104 MMOL/L (98-107); CREATININE 1.2 MG/DL (0.55-1.30); POTASSIUM 3.7 MMOL/L (3.5-5.1); SODIUM 140 MMOL/L (136-145)
[2020-09-14] MEDS ORDERED: HYDROCHLOROTHIA25 MG ORAL (22:45)
[2020-09-14 22:53] VITALS: BP 136/86
--- NOTE | 2020-09-15 21:47 | Diagnostic Imaging Report ---
Indication: Shortness of breath Technique: One view of the chest Comparison: 08/24/2020 Findings: Lungs and pleural spaces are clear. Heart size is normal. No significant change Impression: No acute process
== END 2020-09-14 22:53 | disposition home or self-care (01) ==
LOC: EMR 21:38
DX: R60.0 Localized edema (principal); Z86.73 Personal history of transient ischemic attack (TIA), and cerebral infarction without residual deficits
CPT/HCPCS: 36415; 71045; 80053; 83880; 84484; 85025; 93005; 96374; J1940; Z7502; 99284

== ENCOUNTER 2020-10-13 02:22 | Inpatient (IN) | payer MEDICAID ==
[~2020-10-13] VITALS: Ht 182.9 cm; Wt 99.8 kg
[2020-10-13] VITALS (7 sets, daily range): BP systolic 111–130; BP diastolic 67–96
[~2020-10-13 02:22] MED LIST changes: +HYDROCHLOROTHIA25 MG ORAL
--- NOTE | 2020-10-13 02:40 | NUR ---
ED Nurse Note: Patient walked into ED from home for c/o chest pain onset at 0000 today. He states pain is pressure/tightness in nature and radiates to back. He notes he was walking when pain started. He has hx of stents placed. Bilat leg edema noted. Patient connected to monitoring manager. He is aaox4, breathing is normal and unlabored. No respiratory distress. Safety measures in place.
[2020-10-13] MEDS ORDERED: Aspirin Baby 81mg ORAL ONE (02:45)
--- NOTE | 2020-10-13 02:53 | Emergency Room Report ---
History of Present Illness General Chief Complaint: Chest Pain Source: Patient Present Illness HPI Patient is a 59-year-old male who presents for increased chest discomfort the left side of his chest. Prior history of coronary artery disease and had previous stent placement. Reports having onset during exertion. Associated cough. Onset of symptoms several hours prior to arrival. Reports of increased bilateral leg swelling. Denies any vomiting or diarrhea. Had reportedly had cardiac catheterization 1 month ago. Allergies: Coded Allergies: No Known Allergies (Unverified , 04/09/18) COVID-19 Screening Contact w/high risk pt: No Experienced COVID-19 symptoms?: No COVID-19 Testing performed CHAPERON: No Patient History Past Medical History: see triage record Past Surgical History: other - cardiac stent X3 Reviewed Nursing Documentation: PMH: Agreed; PSxH: Agreed Nursing Documentation-PMH Hx Hypertension: No Hx Pacemaker: No Hx COPD: No Hx Diabetes: No - family hx Hx Cancer: No - family hx Hx Gastrointestinal Problems: No Hx Dialysis: No Hx Neurological Problems: No Hx Cerebrovascular Accident: Yes Hx Seizures: No Review of Systems All Other Systems: negative except mentioned in HPI Physical Exam Vital Signs Date Time Temp Pulse Resp B/P (MAP) Pulse Ox O2 Delivery O2 Flow Rate FiO2 10/13/20 02:26 98.4 78 16 130/79 (96) 97 Room Air Sp02 EP Interpretation: reviewed, normal General Appearance: normal inspection, well appearing, no apparent distress, alert, GCS 15, Chronically Ill Head: atraumatic ENT: normal ENT inspection, hearing grossly normal, normal voice Neck: normal inspection, full range of motion, supple, no bony tend Respiratory: normal inspection, lungs clear, normal breath sounds, no respiratory distress, no retraction, no wheezing Cardiovascular #1: regular rate, rhythm, no edema Gastrointestinal: normal inspection, normal bowel sounds, non tender, soft, no guarding, no hernia Genitourinary: no CVA tenderness Musculoskeletal: normal inspection, back normal, normal range of motion, swelling - biLateral calf swelling Neurologic: alert, motor strength/tone normal, patient financial counselor III-XII nml as tested, oriented x3, responsive, speech normal, normal inspection Psychiatric: normal inspection, judgement/insight normal, mood/affect normal Medical Decision Making Diagnostic Impression: Primary Impression: Chest pain Additional Impression: CAD (coronary artery disease) ER Course Patient presented for shortness of breath differential diagnosis include was not limited to ACS, pneumonia, myocardial infarction among others.EKG interpreted by me showed normal sinus rhythm incomplete right bundle branch block no acute ST or T wave changes noted. Patient had initial troponin that was normal. Patient does have significant cardiac history. Hewas given Aspirin. Dr. Amos was contacted for inpatient management due to prior admission. Labs Test 10/13/20 02:45 White Blood Count 8.6 K/UL (4.8-10.8) Red Blood Count 4.28 M/UL (4.70-6.10) Hemoglobin 14.1 G/DL (14.2-18.0) Hematocrit 40.3 % (42.0-52.0) Mean Corpuscular Volume 94 FL (80-99) Mean Corpuscular Hemoglobin 33.0 PG (27.0-31.0) Mean Corpuscular Hemoglobin Concent 35.0 G/DL (32.0-36.0) Red Cell Distribution Width 12.6 % (11.6-14.8) Platelet Count 218 K/UL (150-450) Mean Platelet Volume 8.4 FL (6.5-10.1) Neutrophils (%) (Auto) 75.0 % (45.0-75.0) Lymphocytes (%) (Auto) 17.5 % (20.0-45.0) Monocytes (%) (Auto) 5.5 % (1.0-10.0) Eosinophils (%) (Auto) 1.2 % (0.0-3.0) Basophils (%) (Auto) 0.8 % (0.0-2.0) D-Dimer 0.29 mg/L FEU (0.00-0.49) Sodium Level 137 MMOL/L (136-145) Potassium Level 4.0 MMOL/L (3.5-5.1) Chloride Level 102 MMOL/L (98-107) Carbon Dioxide Level 28 MMOL/L (21-32) Anion Gap 7 mmol/L (5-15) Blood Urea Nitrogen 13 mg/dL (7-18) Creatinine 1.2 MG/DL (0.55-1.30) Estimat Glomerular Filtration Rate > 60 mL/min (>60) Glucose Level 109 MG/DL (74-106) Calcium Level 8.2 MG/DL (8.5-10.1) Total Bilirubin 0.5 MG/DL (0.2-1.0) Aspartate Amino Transf (AST/SGOT) 26 U/L (15-37) Alanine Aminotransferase (ALT/SGPT) 22 U/L (12-78) Alkaline Phosphatase 71 U/L (46-116) Troponin I 0.018 ng/mL (0.000-0.056) Pro-B-Type Natriuretic Peptide 13 pg/mL (0-125) Total Protein 7.7 G/DL (6.4-8.2) Albumin 3.7 G/DL (3.4-5.0) Globulin 4.0 g/dL Albumin/Globulin Ratio 0.9 (1.0-2.7) EKG Diagnostic Results Rate: normal Rhythm: NSR ST Segments: no acute changes ASA given to the pt in ED: Yes Rhythm Strip Diag. Results EP Interpretation: yes Rhythm: NSR, no PVC's, no ectopy Last Vital Signs Date Time Temp Pulse Resp B/P (MAP) Pulse Ox O2 Delivery O2 Flow Rate FiO2 10/13/20 02:26 98.4 78 16 130/79 (96) 97 Room Air Status: improved Disposition: ADMITTED INPATIENT Condition: Stable Asher Acuna MD Oct 13, 2020 02:53
[2020-10-13 02:54] LABS: BASOPHILS % (AUTO) 0.8 % (0.0-2.0); EOSINOPHILS % (AUTO) 1.2 % (0.0-3.0); HEMATOCRIT 40.3 % (42.0-52.0); HEMOGLOBIN 14.1 G/DL (14.2-18.0); LYMPHOCYTES % (AUTO) 17.5 % (20.0-45.0); MEAN CORPUSCULAR VOLUME 94 FL (80-99); MONOCYTES % (AUTO) 5.5 % (1.0-10.0); PLATELET COUNT 218 K/UL (150-450); RED BLOOD COUNT 4.28 M/UL (4.70-6.10); RED CELL DISTRIBUTION WIDTH 12.6 % (11.6-14.8); WHITE BLOOD COUNT 8.6 K/UL (4.8-10.8)
[2020-10-13 03:05] LABS: ANION GAP 7 mmol/L (5-15); BLOOD UREA NITROGEN 13 mg/dL (7-18); CALCIUM 8.2 MG/DL (8.5-10.1); CARBON DIOXIDE 28 MMOL/L (21-32); CHLORIDE 102 MMOL/L (98-107); CREATININE 1.2 MG/DL (0.55-1.30); SODIUM 137 MMOL/L (136-145)
[2020-10-13 03:16] LABS: ALANINE AMINOTRANSFERASE 22 U/L (12-78); ALBUMIN 3.7 G/DL (3.4-5.0); ALBUMIN/GLOBULIN RATIO 0.9 (1.0-2.7); ALKALINE PHOSPHATASE 71 U/L (46-116); ASPARTATE AMINO TRANSFERASE 26 U/L (15-37); BILIRUBIN,TOTAL 0.5 MG/DL (0.2-1.0)
--- NOTE | 2020-10-13 04:30 | NUR ---
ED Nurse Note: Patient is in bed, sleeping at this time. Breathing is normal and even. No signs of acute distress. Vital signs are stable.
--- NOTE | 2020-10-13 06:15 | NUR ---
ED Nurse Note: Patient is awake and alert. Able to use urinal bedside without complication. No signs of distress at this time. Remains connected to bed placement coordinator. VSS.
--- NOTE | 2020-10-13 07:05 | NUR ---
HAND-OFF: Report given to PHILIP Birch.
--- NOTE | 2020-10-13 07:37 | NUR ---
ED Nurse Note: Pt on bed, asleep, hooked to laboratory monitor, VSS, on RA, no acute distress noted.
--- NOTE | 2020-10-13 10:19 | NUR ---
ED Nurse Note: Offered sandwich and juice to pt.
[2020-10-13] MEDS ORDERED: Morphine Sulfate 2mg/ml Inj(IV/IM USE ONLY) ONE (15:14)
[2020-10-13] MEDS ORDERED: Morphine Sulfate 2mg/ml Inj(IV/IM USE ONLY) IVP ONE (15:15)
--- NOTE | 2020-10-13 15:56 | NUR ---
REPORT GIVEN TO RN AT2 [facility] PATIENT IS TO BE TRANSFERD TO ROOM 212-1 VIA ACLS PROTOCOL
--- NOTE | 2020-10-13 16:20 | NUR ---
NURSE NOTES: Received hand-off report from Ernestina Blanco RN. Patient in stable condition, alert and orientedx4, no chest pain/pressure noted at this time, notified Dr. Amos, awaiting callback/response. pool player was placed, 20g IV on right antecubital intact, saline locked. Breathing even and unlabored on room air. Steady gait and ambulatory. Had a BM and urinates with no complaints. Awaiting doctor's orders.
--- NOTE | 2020-10-13 16:25 | NUR ---
NURSE NOTES: Vital signs within normal range, patient talkative and cheerful demeanor, states no known allergies.
--- NOTE | 2020-10-13 16:34 | Diagnostic Imaging Report ---
Indication: Shortness of breath Technique: One view of the chest Comparison: none Findings: Lungs and pleural spaces are clear. Heart size is normal. No significant change Impression: No acute process
--- NOTE | 2020-10-13 19:13 | NUR ---
NURSE HAND-OFF REPORT: Important Events on Shift: chest pain / pressure, requested PRN medications from Dr. Fallon via messaging. awaiting response and endorsed to Ti Sterling RN. Patient Status: full code, alert and oriented x4, no complaints of chest pain / pressure at this time Diet: cardiac Pending Orders: [] Pending Results/Labs:[] Pending MD notification:[] Latest Vital Signs: Temperature 97.6 , Pulse 94 , B/P 129 /75 , Respiratory Rate 16 , O2 SAT 96 , Room Air, O2 Flow Rate . Vital Sign Comment: [] EKG Rhythm: Sinus Rhythm Rhythm change?: MD Notified?: - MD Response: Latest Mckeon Fall Score: 15 Fall Risk: Low Risk Safety Measures: Call light Within Reach, Bed Alarm Zone 2, Side Rails Side Rails x2, Bed position Low and Locked. Fall Precautions: Yellow Socks Yellow Gown Patient Fall Education Report given to Ti Sterling RN.
--- NOTE | 2020-10-13 19:15 | NUR ---
NURSE NOTES: Patient received from PHILIP Hughes under the care of Dr. Amos for the admitting dx of ACS and L sided pain upon exertion. Noted NKA and Full code status. Patient is alert and oriented x4, verbally responsive with clear speech in [place]. Tolerating room air with no sign of acute distress noted at this time. Will continue to monitor.
--- NOTE | 2020-10-13 21:00 | History and Physical Report ---
DATE OF ADMISSION: 10/13/2020 HISTORY OF PRESENT ILLNESS: Patient comes in for chest pain. No radiation. Denies palpitation. Denies nausea, vomiting, or diarrhea. Does have shortness of breath and cough associated with this. Patient has been admitted to rule out acute coronary syndrome. Patient denies fever or chills. Denies headache. Denies sore throat. Denies nausea, vomiting, or diarrhea. PAST MEDICAL HISTORY: CAD. Also history of CVA. PAST SURGICAL HISTORY: Stent x3 times. FAMILY HISTORY: Does have history of heart disease. SOCIAL HISTORY: Denies history of alcohol abuse. Denies history of drug abuse. Denies history of smoking. MEDICATIONS: Hydrochlorothiazide, Plavix, Coreg, Lipitor, isosorbide mononitrate. ALLERGIES: No known allergies. REVIEW OF SYSTEMS: HEENT: Denies headaches. RESPIRATORY: Reports shortness of breath and cough. CARDIOVASCULAR: Chest pain. Denies radiation. Denies palpitation. GASTROINTESTINAL: Denies nausea, vomiting, diarrhea. EXTREMITIES: Denies pain in lower extremities. CENTRAL NERVOUS SYSTEM: Denies change in speech pattern. PHYSICAL EXAMINATION: VITAL SIGNS: Temperature is 98.4, pulse 72, blood pressure 111/96. HEENT: PERRLA. NECK: Supple. No lymphadenopathy. CHEST: Clear to auscultation. CARDIOVASCULAR: Regular rate and rhythm. No murmurs or extra sounds. GASTROINTESTINAL: Soft, nontender, nondistended. No organomegaly. EXTREMITIES: No edema. Moves all four extremities. NEUROLOGIC: Sensory intact to light touch. Reflexes on both sides. LABORATORY AND DIAGNOSTIC DATA: EKG, no significant abnormalities. No ST elevation. Laboratory, WBC of 8.6, hemoglobin 14.1, platelets of 218. Sodium 137, potassium 4, BUN of 13, creatinine 1.2. Troponin 0.018. ASSESSMENT AND PLAN: Chest pain, rule out acute coronary syndrome. Patient has history of a CAD, status post non-STEMI in the past. Patient also has hypertension. I have consulted Dr. Fallon and Dr. Quiroga for the shortness of breath and cough to rule out patient's shortness of breath. At this point, does not seem to see in any signs or symptoms of pneumonia. Drew Amos M.D. DR: RENUKA JOB#: [id number] CC:
[2020-10-13] MEDS: Carvedilol 12.5mg tab ORAL SCH (21:45)
--- NOTE | 2020-10-14 | NUR ---
NURSE NOTES: Patient asleep but easily arousable. Refused vital sign check at this time. Noted stable rhythm on the cardiac rehabilitation specialist. Denies pain at this time. Will continue to monitor.
[2020-10-14 04:00] VITALS: BP 130/83
--- NOTE | 2020-10-14 04:00 | NUR ---
NURSE NOTES: Patient agreed to VS check this time. Denies pain at this time. Will continue monitor.
--- NOTE | 2020-10-14 05:33 | Pulmonology Progress Note ---
Subjective ROS Limited/Unobtainable: No Respiratory: Reports: shortness of breath Cardiovascular: Reports: chest pain Allergies: Coded Allergies: No Known Allergies (Unverified , 04/09/18) Objective Last 24 Hour Vital Signs Date Time Temp Pulse Resp B/P (MAP) Pulse Ox O2 Delivery O2 Flow Rate FiO2 10/14/20 04:00 97.3 78 16 130/83 (99) 100 10/14/20 04:00 58 10/14/20 00:00 69 10/13/20 21:45 78 117/75 10/13/20 21:00 Room Air 10/13/20 20:00 98.6 78 18 117/76 (90) 98 10/13/20 20:00 89 10/13/20 17:28 Room Air 10/13/20 16:40 97.6 94 16 129/75 (93) 96 10/13/20 15:52 97.8 82 18 140/80 98 Room Air 10/13/20 12:26 98.2 71 18 124/67 99 Room Air 10/13/20 09:01 98.4 72 18 111/96 99 Room Air 10/13/20 06:15 98.4 71 17 120/70 99 Room Air Intake and Output 10/13/20 10/14/20 19:00 07:00 Intake Total 400 ml Balance 400 ml Intake Oral 400 ml Current Medications Medications (Trade) Dose Ordered Sig/Sony Route PRN Reason Start Time Stop Time Status Last Admin Dose Admin Acetaminophen (Tylenol) 650 mg Q4H PRN ORAL Mild Pain (Pain Scale 1-3) 10/13/20 17:30 11/12/20 17:29 10/13/20 18:45 Aspirin (ASA) 81 mg DAILY ORAL 10/14/20 09:00 11/28/20 08:59 Carvedilol (Coreg) 12.5 mg EVERY 12 HOURS ORAL 10/13/20 21:00 11/12/20 20:59 10/13/20 21:45 Clopidogrel Bisulfate (Plavix) 75 mg DAILY ORAL 10/14/20 09:00 11/13/20 08:59 Hydrochlorothiazide (Hydrodiuril) 25 mg DAILY ORAL 10/14/20 09:00 11/13/20 08:59 Isosorbide Mononitrate (Imdur) 30 mg DAILY ORAL 10/14/20 09:00 11/13/20 08:59 Nitroglycerin (Ntg) 0.4 mg Q5MIN X 3 DOSES PRN SL CHEST PAIN 10/13/20 17:30 11/12/20 17:29 Assessment/Plan Assessment/Plan Pulmonary Consultation HPI Patient is a 59-year-old man admitted complaining of chest discomfort involving the left side of his chest. Prior history of coronary artery disease with previous stent placement. Had cardiac catheterization 1 month ago. Reports having onset during exertion. Associated shortness of breath and cough. Onset of symptoms several hours prior to arrival. Reports of increased bilateral leg swelling. Denies any vomiting or diarrhea. Allergies: No Known Allergies Past Medical History: Coronary artery disease with previous stent placement, previous CVA Past Surgical History: Cardiac stent X3 Family History: Heart disease, Diabetes Social History: [place] All Other Systems: negative except mentioned in HPI Physical Exam Vital Signs Noted, stable General Appearance: normal inspection, well appearing, no apparent distress, alert, GCS 15 Head: atraumatic ENT: normal ENT inspection, hearing grossly normal, normal voice Neck: normal inspection, full range of motion, supple, no bony tend Respiratory: normal inspection, lungs clear, normal breath sounds, no respiratory distress, no retraction, no wheezing Cardiovascular: HS1, HS2 normal,regular rate, rhythm, no edema Gastrointestinal: normal inspection, normal bowel sounds, non tender, soft, no guarding, no hernia Genitourinary: no CVA tenderness Musculoskeletal: normal inspection, back normal, normal range of motion, swelling - biLateral calf swelling Neurologic: alert, motor strength/tone normal, oriented x3, responsive, no focal signs Impression: Chest pain Coronary artery disease Shortness of breath, no abnormality on CXR Plan: Cardiology following [employer]CHITECT medications O2 PRN Janeeva VQ scan Monitor labs Labs Test 10/13/20 02:45 White Blood Count 8.6 K/UL (4.8-10.8) Red Blood Count 4.28 M/UL (4.70-6.10) Hemoglobin 14.1 G/DL (14.2-18.0) Hematocrit 40.3 % (42.0-52.0) Mean Corpuscular Volume 94 FL (80-99) Mean Corpuscular Hemoglobin 33.0 PG (27.0-31.0) Mean Corpuscular Hemoglobin Concent 35.0 G/DL (32.0-36.0) Red Cell Distribution Width 12.6 % (11.6-14.8) Platelet Count 218 K/UL (150-450) Mean Platelet Volume 8.4 FL (6.5-10.1) Neutrophils (%) (Auto) 75.0 % (45.0-75.0) Lymphocytes (%) (Auto) 17.5 % (20.0-45.0) Monocytes (%) (Auto) 5.5 % (1.0-10.0) Eosinophils (%) (Auto) 1.2 % (0.0-3.0) Basophils (%) (Auto) 0.8 % (0.0-2.0) D-Dimer 0.29 mg/L FEU (0.00-0.49) Sodium Level 137 MMOL/L (136-145) Potassium Level 4.0 MMOL/L (3.5-5.1) Chloride Level 102 MMOL/L (98-107) Carbon Dioxide Level 28 MMOL/L (21-32) Anion Gap 7 mmol/L (5-15) Blood Urea Nitrogen 13 mg/dL (7-18) Creatinine 1.2 MG/DL (0.55-1.30) Estimat Glomerular Filtration Rate > 60 mL/min (>60) Glucose Level 109 MG/DL (74-106) Calcium Level 8.2 MG/DL (8.5-10.1) Total Bilirubin 0.5 MG/DL (0.2-1.0) Aspartate Amino Transf (AST/SGOT) 26 U/L (15-37) Alanine Aminotransferase (ALT/SGPT) 22 U/L (12-78) Alkaline Phosphatase 71 U/L (46-116) Troponin I 0.018 ng/mL (0.000-0.056) Pro-B-Type Natriuretic Peptide 13 pg/mL (0-125) Total Protein 7.7 G/DL (6.4-8.2) Albumin 3.7 G/DL (3.4-5.0) Globulin 4.0 g/dL Albumin/Globulin Ratio 0.9 (1.0-2.7) EKG: NSR ST Segments: no acute changes CXR: No abnormality Guillermo Piper MD Oct 14, 2020 05:33
--- NOTE | 2020-10-14 07:30 | NUR ---
NURSE NOTES: RECEIVED PATIENT A/A/OX4, AMBULATES WITH STEADY GAIT. ABLE TO MAKE NEEDS KNOWN. DENIES OF PAIN/DISCOMFORT @ THIS MOMENT. ON A TOOL FILER HAND. PIV RFA 22G PATENT AND INTACT. TOLERATING FOOD INTAKE WELL. NO ACUTE CARDIO-RESP DISTRESS NOTED. KEPT BED IN THE LOWEST POSITION. SIDERAILS ARE UPX2, CALL LIGHT IS WITHIN EASY REACH. WILL CONT TO MONITOR.
--- NOTE | 2020-10-14 07:35 | NUR ---
NURSE HAND-OFF REPORT: Important Events on Shift:*- Patient Status: Stable Diet: Mech soft cardiac Pending Orders: Pending Results/Labs: Pending MD notification: Latest Vital Signs: Temperature 97.3 , Pulse 58 , B/P 130 /83 , Respiratory Rate 16 , O2 SAT 100 , Room Air, O2 Flow Rate . Vital Sign Comment: EKG Rhythm: Sinus Bradycardia Rhythm change?: N MD Notified?: - MD Response: Latest Mckeon Fall Score: 15 Fall Risk: Low Risk Safety Measures: Call light Within Reach, Bed Alarm Zone 1, Side Rails Side Rails x2, Bed position Low and Locked. Fall Precautions: Patient Fall Education Report given to CARLA Umaña.
[2020-10-14 08:00] VITALS: BP 120/72
[2020-10-14] MEDS: Carvedilol 12.5mg tab ORAL SCH ×2 (08:41→20:49)
[2020-10-14] MEDS: Aspirin Baby 81mg ORAL SCH (08:41)
[2020-10-14] MEDS: Imdur 30mg tab ORAL SCH (08:41)
--- NOTE | 2020-10-14 08:59 | General Progress Note ---
Subjective ROS Limited/Unobtainable: Yes Allergies: Coded Allergies: No Known Allergies (Unverified , 04/09/18) Objective Last 24 Hour Vital Signs Date Time Temp Pulse Resp B/P (MAP) Pulse Ox O2 Delivery O2 Flow Rate FiO2 10/14/20 08:41 120/72 10/14/20 08:41 70 120/72 10/14/20 04:00 97.3 78 16 130/83 (99) 100 10/14/20 04:00 58 10/14/20 00:00 69 10/13/20 21:45 78 117/75 10/13/20 21:00 Room Air 10/13/20 20:00 98.6 78 18 117/76 (90) 98 10/13/20 20:00 89 10/13/20 17:28 Room Air 10/13/20 16:40 97.6 94 16 129/75 (93) 96 10/13/20 15:52 97.8 82 18 140/80 98 Room Air 10/13/20 12:26 98.2 71 18 124/67 99 Room Air 10/13/20 09:01 98.4 72 18 111/96 99 Room Air Intake and Output 10/13/20 10/14/20 19:00 07:00 Intake Total 400 ml 480 ml Balance 400 ml 480 ml Intake Oral 400 ml 480 ml Height (Feet): 6 Height (Inches): 0.00 Weight (Pounds): 220 Assessment/Plan Problem List: (1) HTN (hypertension) ICD Codes: I10 - Essential (primary) hypertension SNOMED: 99713646 (2) Lower extremity edema ICD Codes: R60.0 - Localized edema SNOMED: 761217289, 40210730 (3) CAD (coronary artery disease) ICD Codes: I25.10 - Atherosclerotic heart disease of [place] coronary artery without angina pectoris SNOMED: 97957654 (4) Chest pain ICD Codes: R07.9 - Chest pain, unspecified SNOMED: 17946528 Status: progressing Assessment/Plan: htn no cp r/o acs afebrile vitals stable no sob reviewed chart and meds Drew Amos MD Oct 14, 2020 08:59
[2020-10-14] MEDS ORDERED: hydroCHLOROthiazide 25mg cap ORAL SCH (09:00)
--- NOTE | 2020-10-14 10:01 | Diagnostic Imaging Report ---
EXAM: US Duplex Bilateral Lower Extremities Veins CLINICAL HISTORY: DVT TECHNIQUE: Real-time duplex ultrasound scan of the bilateral lower extremity veins integrating B-mode two-dimensional vascular structure, Doppler spectral analysis, color flow Doppler imaging and compression. COMPARISON: August 25, 2020. FINDINGS: Right deep veins: Unremarkable. No DVT in the right common femoral, femoral, proximal deep femoral or popliteal veins. The veins demonstrate normal color flow, are normally compressible, with normal phasic flow and/or augmentation response. Right superficial veins: Unremarkable. No thrombus in the visualized right great saphenous vein. Left deep veins: Unremarkable. No DVT in the left common femoral, femoral, proximal deep femoral or popliteal veins. The veins demonstrate normal color flow, are normally compressible, with normal phasic flow and/or augmentation response. Left superficial veins: Unremarkable. No thrombus in the visualized left great saphenous vein. Soft tissues: Bilateral inguinal lymph nodes No popliteal cyst. IMPRESSION: No evidence of DVT in the bilateral lower extremities. Bilateral inguinal lymph nodes may be reactive. Correlate clinically.
[2020-10-14 11:50] VITALS: BP 123/69
--- NOTE | 2020-10-14 15:02 | Cardiac Electrophysiology PN ---
Subjective Subjective [id number] Objective Last 24 Hour Vital Signs Date Time Temp Pulse Resp B/P (MAP) Pulse Ox O2 Delivery O2 Flow Rate FiO2 10/14/20 11:50 97.9 69 17 123/69 (87) 96 10/14/20 09:14 97.3 10/14/20 08:41 120/72 10/14/20 08:41 70 120/72 10/14/20 08:00 97.9 73 17 120/72 (88) 98 10/14/20 04:00 97.3 78 16 130/83 (99) 100 10/14/20 04:00 58 10/14/20 00:00 69 10/13/20 21:45 78 117/75 10/13/20 21:00 Room Air 10/13/20 20:00 98.6 78 18 117/76 (90) 98 10/13/20 20:00 89 10/13/20 17:28 Room Air 10/13/20 16:40 97.6 94 16 129/75 (93) 96 10/13/20 15:52 97.8 82 18 140/80 98 Room Air Intake and Output 10/13/20 10/14/20 19:00 07:00 Intake Total 400 ml 480 ml Balance 400 ml 480 ml Intake Oral 400 ml 480 ml Stephen Fallon MD Oct 14, 2020 15:02
--- NOTE | 2020-10-14 15:44 | Consultation ---
DATE OF CONSULTATION: 10/14/2020 CARDIOLOGY CONSULTATION REFERRING PHYSICIAN: Drew Amos M.D. REASON FOR CONSULTATION: Chest pain in a patient with known coronary artery disease. HISTORY OF PRESENT ILLNESS: The patient is a 59-year-old gentleman whom I am quite familiar with from multiple previous hospitalizations. The patient has a history of coronary artery disease, prior stent in the LAD in December 2019, as well as stent in the obtuse marginal branch of the circumflex in January 2020 at [facility]. The patient had a nuclear stress test on August 11, 2020 that showed anterior wall ischemia. The patient was then transferred to [facility] in [place] and underwent cardiac catheterization about a month ago. The patient presented to the emergency room with primarily increased bilateral lower extremity edema and shortness of breath. REVIEW OF SYSTEMS: Negative other than what is mentioned in history of present illness. PAST MEDICAL HISTORY: As mentioned above. FAMILY HISTORY: Noncontributory. SOCIAL HISTORY: He lives at home. Does not smoke or drink alcohol. PHYSICAL EXAMINATION: VITAL SIGNS: Blood pressure of 122/67, pulse 67, respirations 18, temperature 98. HEAD AND NECK: No JVD. LUNGS: Clear. CARDIOVASCULAR: Regular S1 and S2 with no gallop or murmur. ABDOMEN: Soft. EXTREMITIES: 1+ pitting edema. LABORATORY AND DIAGNOSTIC DATA: His labs showed white count of 8.6, hemoglobin 14, hematocrit 40, and platelet count is 218. Sodium is 137, potassium 4.0, BUN of 30, creatinine 1.2, and glucose of 109. Troponin is negative. ASSESSMENT AND PLAN: 1. Chest pain. The patient is with a history of coronary artery disease with LAD stent in December 2019 and obtuse marginal stent in January 2020 at [facility] with stress test on August 11, 2020 showed anterior wall ischemia, for which he underwent cardiac catheterization at [facility]. We will try to get those records for further evaluation. In the meantime, resume the patient's aspirin and Plavix and Coreg 12.5 mg b.i.d. as well as Imdur 30 mg daily and discontinue hydrochlorothiazide. Start the patient on Lasix 40 mg IV b.i.d. His echocardiogram on August 06, 2020, showed ejection fraction of 60%. 2. Hypertension, on medical therapy. 3. Hyperlipidemia. Thank you very much for allowing me to participate in the care of this patient. Please do not hesitate to contact me for any questions regarding my evaluation. Stephen Fallon M.D. DR: ADRIENNE JOB#: [id number] CC:
[2020-10-14 16:00] VITALS: BP 111/60
--- NOTE | 2020-10-14 19:06 | NUR ---
NURSE HAND-OFF REPORT: Important Events on Shift:[monitored for CP; safety measures rendered; venous duplex done] Patient Status: [stable] Diet: [cardiac mech soft] Pending Orders: [labs; 2D echo] Pending Results/Labs:[in am] Pending MD notification:[] Latest Vital Signs: Temperature 97.6 , Pulse 65 , B/P 111 /60 , Respiratory Rate 18 , O2 SAT 99 , Room Air, O2 Flow Rate . Vital Sign Comment: [] EKG Rhythm: Sinus Rhythm Rhythm change?: N MD Notified?: - MD Response: Latest Mckeon Fall Score: 15 Fall Risk: Low Risk Safety Measures: Call light Within Reach, Bed Alarm Zone 1, Side Rails Side Rails x2, Bed position Low and Locked. Fall Precautions: Patient Fall Education Report given to [todd].
--- NOTE | 2020-10-14 19:54 | NUR ---
NURSE NOTES: Received patient in bed, awake, alert, oriented x4, able to make his needs known, IV site is clean dry and intact, ambulates with steady gate. Call light is within reach, bed is lowered, locked, alarm is on, will continue to monitor for comfort and safety.
[2020-10-14 20:00] VITALS: BP 110/69
[2020-10-15 00:09] VITALS: BP 119/74
[2020-10-15 04:00] VITALS: BP 122/74
--- NOTE | 2020-10-15 07:24 | NUR ---
NURSE HAND-OFF REPORT: Important Events on Shift: no changes, stable Patient Status: full Diet: cardiac, soft easy chew Pending Orders: Pending Results/Labs: Pending MD notification: Latest Vital Signs: Temperature 98.3 , Pulse 59 , B/P 122 /74 , Respiratory Rate 20 , O2 SAT 97 , Room Air, O2 Flow Rate . Vital Sign Comment: EKG Rhythm: Sinus Bradycardia Rhythm change?: N MD Notified?: - MD Response: Latest Mckeon Fall Score: 15 Fall Risk: Low Risk Safety Measures: Call light Within Reach, Bed Alarm Zone 1, Side Rails Side Rails x2, Bed position Low and Locked. Fall Precautions: Patient Fall Education Report given to Jemma PALACIOS
[2020-10-15 08:00] VITALS: BP 130/81
[2020-10-15] MEDS: Aspirin Baby 81mg ORAL SCH (08:45)
[2020-10-15] MEDS: Carvedilol 12.5mg tab ORAL SCH ×2 (08:45→21:03)
[2020-10-15] MEDS: Imdur 30mg tab ORAL SCH (08:46)
[2020-10-15] MEDS: Nitroglycerin Subl 0.4mg tab SL PRN ×2 (08:47→21:19)
--- NOTE | 2020-10-15 09:57 | General Progress Note ---
Subjective ROS Limited/Unobtainable: Yes Allergies: Coded Allergies: No Known Allergies (Unverified , 04/09/18) Objective Last 24 Hour Vital Signs Date Time Temp Pulse Resp B/P (MAP) Pulse Ox O2 Delivery O2 Flow Rate FiO2 10/15/20 08:47 130/81 10/15/20 08:46 130/81 10/15/20 08:45 61 130/81 10/15/20 08:00 98.2 61 19 130/81 (97) 96 10/15/20 04:00 98.3 78 20 122/74 (90) 97 78 10/15/20 04:00 59 10/15/20 00:09 98.7 74 18 119/74 (89) 74 10/14/20 21:31 Room Air 10/14/20 20:49 74 129/78 10/14/20 20:00 97.8 74 18 110/69 (83) 98 74 10/14/20 20:00 67 10/14/20 16:00 97.6 65 18 111/60 (77) 99 10/14/20 16:00 65 10/14/20 16:00 Room Air 10/14/20 12:00 63 10/14/20 12:00 Room Air 10/14/20 11:50 97.9 69 17 123/69 (87) 96 Intake and Output 10/14/20 10/15/20 19:00 07:00 Intake Total 720 ml Balance 720 ml Intake Oral 720 ml # Voids 3 Laboratory Tests 10/15/20 07:30: Troponin I 0.019, Pro-B-Type Natriuretic Peptide 15 Height (Feet): 6 Height (Inches): 0.00 Weight (Pounds): 220 Assessment/Plan Problem List: (1) HTN (hypertension) ICD Codes: I10 - Essential (primary) hypertension SNOMED: 26096151 (2) Lower extremity edema ICD Codes: R60.0 - Localized edema SNOMED: 556509126, 10720005 (3) CAD (coronary artery disease) ICD Codes: I25.10 - Atherosclerotic heart disease of [place] coronary artery without angina pectoris SNOMED: 36453122 (4) Chest pain ICD Codes: R07.9 - Chest pain, unspecified SNOMED: 04547206 Status: progressing Assessment/Plan: no cp dc planning need clearance from cardiology reviewed chart and meds Bette,Ali MD Oct 15, 2020 09:57
--- NOTE | 2020-10-15 11:18 | NUR ---
NURSE NOTES: Received pt from PHILIP Amor at 0730, pt is awake and alert, pt is on RA, no SOB or acute respiratory distress note, pt is on continues heart monitoring, pt has in tact iv access RFA 22g SL, Dr Amos visited pt and is aware about pt had CP, but after one dose TNG, no pain noted, no new order received. all needs attended, bed is locked and is in the lowest position, call light within easy reach. will continue to monitor.
[2020-10-15 12:00] VITALS: BP 121/91
--- NOTE | 2020-10-15 15:16 | NUR ---
NURSE NOTES: Dr Fallon visited pt and is aware about CP in the morning, no new order received. will continue to monitor.
--- NOTE | 2020-10-15 15:37 | Cardiac Electrophysiology PN ---
Assessment/Plan Assessment/Plan 1. Chest pain. The patient is with a history of coronary artery disease with LAD stent in December 2019 and obtuse marginal stent in January 2020 at [facility] with stress test on August 11, 2020 showed anterior wall ischemia, for which he underwent cardiac catheterization at [facility] tht showed non obstructive CAD. Cotinue aspirin and Plavix and Coreg 12.5 mg b.i.d. as well as Imdur 30 mg daily On Lasix 40 mg IV b.i.d. His echocardiogram on August 06, 2020, showed ejection fraction of 60%. 2. Hypertension, on medical therapy. 3. Hyperlipidemia. OK to DC OLEGARIO RN and Dr Amos Subjective Subjective Feeling better. No CP or SOB Objective Last 24 Hour Vital Signs Date Time Temp Pulse Resp B/P (MAP) Pulse Ox O2 Delivery O2 Flow Rate FiO2 10/15/20 12:00 96.8 87 20 121/91 (101) 97 10/15/20 11:57 76 10/15/20 09:00 Room Air 10/15/20 08:48 71 10/15/20 08:47 130/81 10/15/20 08:46 130/81 10/15/20 08:45 61 130/81 10/15/20 08:00 98.2 61 19 130/81 (97) 96 10/15/20 04:00 98.3 78 20 122/74 (90) 97 78 10/15/20 04:00 59 10/15/20 00:09 98.7 74 18 119/74 (89) 74 10/14/20 21:31 Room Air 10/14/20 20:49 74 129/78 10/14/20 20:00 97.8 74 18 110/69 (83) 98 74 10/14/20 20:00 67 10/14/20 16:00 97.6 65 18 111/60 (77) 99 10/14/20 16:00 65 10/14/20 16:00 Room Air Intake and Output 10/14/20 10/15/20 19:00 07:00 Intake Total 720 ml Balance 720 ml Intake Oral 720 ml # Voids 3 Laboratory Tests Test 10/15/20 07:30 Troponin I 0.019 ng/mL (0.000-0.056) Pro-B-Type Natriuretic Peptide 15 pg/mL (0-125) Objective HEAD AND NECK: No JVD. LUNGS: Clear. CARDIOVASCULAR: Regular S1 and S2 with no gallop or murmur. ABDOMEN: Soft. EXTREMITIES: 1+ pitting edema. Stephen Fallon MD Oct 15, 2020 15:37
[2020-10-15 15:59] VITALS: BP 130/61
--- NOTE | 2020-10-15 18:17 | Pulmonology Progress Note ---
Subjective ROS Limited/Unobtainable: Yes Interval Events: None new overnight Constitutional: Reports: no symptoms HEENT: Repors: no symptoms Respiratory: Reports: no symptoms, shortness of breath Cardiovascular: Reports: chest pain Gastrointestinal/Abdominal: Reports: no symptoms Genitourinary: Reports: no symptoms Allergies: Coded Allergies: No Known Allergies (Unverified , 04/09/18) Objective Last 24 Hour Vital Signs Date Time Temp Pulse Resp B/P (MAP) Pulse Ox O2 Delivery O2 Flow Rate FiO2 10/15/20 15:59 96.7 82 19 130/61 (84) 97 10/15/20 15:11 74 10/15/20 12:00 96.8 87 20 121/91 (101) 97 10/15/20 11:57 76 10/15/20 09:00 Room Air 10/15/20 08:48 71 10/15/20 08:47 130/81 10/15/20 08:46 130/81 10/15/20 08:45 61 130/81 10/15/20 08:00 98.2 61 19 130/81 (97) 96 10/15/20 04:00 98.3 78 20 122/74 (90) 97 78 10/15/20 04:00 59 10/15/20 00:09 98.7 74 18 119/74 (89) 74 10/14/20 21:31 Room Air 10/14/20 20:49 74 129/78 10/14/20 20:00 97.8 74 18 110/69 (83) 98 74 10/14/20 20:00 67 Intake and Output 10/14/20 10/15/20 19:00 07:00 Intake Total 720 ml Balance 720 ml Intake Oral 720 ml # Voids 3 General Appearance: no acute distress HEENT: normocephalic Respiratory: chest wall non-tender, lungs clear Cardiovascular: normal peripheral pulses Abdomen: normal bowel sounds Laboratory Tests 10/15/20 07:30: Troponin I 0.019, Pro-B-Type Natriuretic Peptide 15 Current Medications Medications (Trade) Dose Ordered Sig/Sony Route PRN Reason Start Time Stop Time Status Last Admin Dose Admin Acetaminophen (Tylenol) 650 mg Q4H PRN ORAL Mild Pain (Pain Scale 1-3) 10/13/20 17:30 11/12/20 17:29 10/15/20 14:38 Aspirin (ASA) 81 mg DAILY ORAL 10/14/20 09:00 11/28/20 08:59 10/15/20 08:45 Carvedilol (Coreg) 12.5 mg EVERY 12 HOURS ORAL 10/13/20 21:00 11/12/20 20:59 10/15/20 08:45 Clopidogrel Bisulfate (Plavix) 75 mg DAILY ORAL 10/14/20 09:00 11/13/20 08:59 10/15/20 08:46 Furosemide (Lasix) 40 mg EVERY 12 HOURS IV 10/14/20 21:00 11/13/20 20:59 10/15/20 08:46 Isosorbide Mononitrate (Imdur) 30 mg DAILY ORAL 10/14/20 09:00 11/13/20 08:59 10/15/20 08:46 Nitroglycerin (Ntg) 0.4 mg Q5MIN X 3 DOSES PRN SL CHEST PAIN 10/13/20 17:30 11/12/20 17:29 10/15/20 08:47 Assessment/Plan Assessment/Plan Impression: Chest pain Coronary artery disease Shortness of breath, no abnormality on CXR Plan: Cardiology following INSTRUCTIONAL SPECIALIST medications O2 PRN LE duplex and VQ scan pending Monitor labs Juan F Quiroga MD Oct 15, 2020 18:17
--- NOTE | 2020-10-15 19:42 | NUR ---
NURSE HAND-OFF REPORT: Important Events on Shift: Patient Status: Diet: Pending Orders: Pending Results/Labs: Pending MD notification: Latest Vital Signs: Temperature 96.7 , Pulse 82 , B/P 130 /61 , Respiratory Rate 19 , O2 SAT 97 , Room Air, O2 Flow Rate . Vital Sign Comment: EKG Rhythm: Sinus Rhythm Rhythm change?: N MD Notified?: - MD Response: Latest Mckeon Fall Score: 15 Fall Risk: Low Risk Safety Measures: Call light Within Reach, Bed Alarm Zone 1, Side Rails Side Rails x2, Bed position Low and Locked. Fall Precautions: Patient Fall Education Report given to . pt is awake and stable, no stress noted, endorsed plan of care, endorsed to monitor CP. no CP atthis moment.
--- NOTE | 2020-10-15 19:45 | NUR ---
NURSE NOTES: Got report from Jemma PALACIOS. Pt in stable condition. Denies any pain or discomfort. Pt is fully oriented and ambulatory. Pt has R FA 22g slocked intact and patent. Pt resting in bed comfortably. Bed in low and locked position, call light within reach, bedside table within reach. Continue to monitor.
[2020-10-15 20:00] VITALS: BP 109/71
[2020-10-16] VITALS: BP 110/75
[2020-10-16 04:00] VITALS: BP 111/70
--- NOTE | 2020-10-16 07:25 | NUR ---
NURSE HAND-OFF REPORT: Important Events on Shift:[] Patient Status: [STABLE] Diet: [CARDIAC] Pending Orders: [] Pending Results/Labs:[] Pending MD notification:[] Latest Vital Signs: Temperature 97.7 , Pulse 62 , B/P 111 /70 , Respiratory Rate 18 , O2 SAT 97 , Room Air, O2 Flow Rate . Vital Sign Comment: [] EKG Rhythm: Sinus Rhythm Rhythm change?: N MD Notified?: - MD Response: Latest Mckeon Fall Score: 15 Fall Risk: Low Risk Safety Measures: Call light Within Reach, Bed Alarm Zone 1, Side Rails Side Rails x2, Bed position Low and Locked. Fall Precautions: Patient Fall Education Report given to [ALFIE PALACIOS].
--- NOTE | 2020-10-16 07:30 | NUR ---
NURSE NOTES: Received pt from PHILIP Cardoza, pt is awake and alert, pt is on RA, no SOB or acute respiratory distress note, pt is on continues heart monitoring, pt has in tact iv access RFA 22g SL, pt is eating breakfast by observation. all needs attended, bed is locked and is in the lowest position, call light within easy reach. will continue to monitor.
--- NOTE | 2020-10-16 08:30 | NUR ---
NURSE NOTES: pt is stable, report given to PHILIP Claudio.
[2020-10-16] MEDS: Aspirin Baby 81mg ORAL SCH (09:25)
[2020-10-16 09:26] VITALS: BP 137/87
[2020-10-16] MEDS: Carvedilol 12.5mg tab ORAL SCH (09:26)
[2020-10-16] MEDS: Imdur 30mg tab ORAL SCH (09:26)
--- NOTE | 2020-10-16 10:49 | NUR ---
NURSE NOTES: Received patient report from PHILIP Easton. Patient is AO x4 awake and able to make needs known. Patient is on room air and shows no signs of respiratory distress. IV is intact and patent. There are no signs of erythema, infiltration, or bleeding. There are no signs of distress or pain at the time . Bed is in the lowest position, call light is within reach, side rails up x2. Will continue to monitor.
--- NOTE | 2020-10-16 11:53 | NUR ---
NURSE NOTES: Patient discharged from Hospital. IV taken out, bus driver/monitor taken off. Packet handed to patient with prescription. Patient able to ambulate, called next of kin Xiomy Weinberg. Patient showed no signs of distress or pain. AOx4 able to make needs known.
--- NOTE | 2020-10-16 13:01 | NUR ---
CASE MANAGEMENT:REVIEW 59 YR OLD MALE WALKED INTO ER CC; CHEST PAIN PMH: CARDIAC STENTS SI: ACS. CAD 98.4 78 16 130/79 97% ON RA TROPONIN(-) IS: ASA PO IV LASIX CHEST XRAY : TO TELEMETRY 10/15/30 SI: CHEST PAIN. HYPERTENSION 96.8 87 20 121/91 97% ON RA TROPONIN(-) X2 IS: IV LASIX Q12 IMDUR PO QD PLAVIX PO QD ASA PO QD COREG PO Q12 : TELEMETRY W/CONTINUOUS CARDIAC MONITORING 10/16/20 DISCHARGE HOME
--- NOTE | 2020-10-16 14:26 | Cardiac Electrophysiology PN ---
Assessment/Plan Assessment/Plan 1. Chest pain. The patient is with a history of coronary artery disease with LAD stent in December 2019 and obtuse marginal stent in January [address] [facility] with stress test on August 11, 2020 showed anterior wall ischemia, for which he underwent cardiac catheterization at [facility] tht showed non obstructive CAD. Cotinue aspirin and Plavix and Coreg 12.5 mg b.i.d. as well as Imdur 30 mg daily On Lasix 40 mg po daily His echocardiogram on August 06, 2020, showed ejection fraction of 60%. 2. Hypertension, on medical therapy. 3. Hyperlipidemia. OK to DC OLEGARIO RN and Dr Amos Subjective Subjective Feeling better. No CP or SOB. DC in progress. Objective Last 24 Hour Vital Signs Date Time Temp Pulse Resp B/P (MAP) Pulse Ox O2 Delivery O2 Flow Rate FiO2 10/16/20 09:26 137/87 10/16/20 09:26 90 137/87 10/16/20 04:00 62 10/16/20 04:00 97.7 77 18 111/70 (84) 97 10/16/20 00:00 97.7 68 18 110/75 (87) 99 10/16/20 00:00 72 10/15/20 21:37 96.7 10/15/20 21:19 109/71 10/15/20 21:03 66 109/71 10/15/20 21:00 Room Air 10/15/20 20:00 97.2 66 18 109/71 (84) 97 10/15/20 20:00 73 10/15/20 15:59 96.7 82 19 130/61 (84) 97 10/15/20 15:11 74 Intake and Output 10/15/20 10/16/20 19:00 07:00 Intake Total 480 ml Balance 480 ml Intake Oral 480 ml # Voids 5 4 Objective HEAD AND NECK: No JVD. LUNGS: Clear. CARDIOVASCULAR: Regular S1 and S2 with no gallop or murmur. ABDOMEN: Soft. EXTREMITIES: 1+ pitting edema. Stephen Fallon MD Oct 16, 2020 14:26
[2020-10-17] MEDS ORDERED: TYLENOL EXTRA500 MG ORAL (01:51)
--- NOTE | 2020-10-17 13:40 | Cardiology Report ---
APPROVED REPORT EXAM: Two-dimensional and M-mode echocardiogram with Doppler and color Doppler. INDICATION Congestive Heart Failure M-Mode DIMENSIONS IVSd0.9 (0.7-1.1cm)Left Atrium (MM)3.5 (1.6-4.0cm) LVDd4.6 (3.5-5.6cm)Aortic Root3.3 (2.0-3.7cm) PWd0.9 (0.7-1.1cm)Aortic Cusp Exc.2.1 (1.5-2.0cm) IVSs1.6 cm LVDs3.0 (2.5-4.0cm) PWs1.4 cm <Conclusion> Technically difficult study due poor acoustical windows. Normal left ventricular chamber size, systolic function and wall motion to extent visualized. Left ventricular ejection fraction estimated to be 65-70%. No evidence of ventricular hypertrophy. Anterior Echo-free space, may be due to pericardial fat or effusion. All other cardiac chamber sizes are within normal limits. Calcification of aortic valve with adequate cusp excursion. Thickened mitral valve leaflets with normal excursion. Mitral annulus and aortic root calcification. Pulmonic valve not well visualized. Normal tricuspid valve structure. IVC at normal size with physiologic collapse. A color flow and spectral Doppler study was performed and revealed: No aortic regurgitation. Mild mitral regurgitation. Mitral diastolic velocities of E & A equalization & Tissue Doppler Imaging suggest normal diastolic fucntion. Trace tricuspid regurgitation. Tricuspid systolic velocities suggests peak right ventricular systolic pressure of 33 mmHg.
--- NOTE | 2020-10-17 14:52 | Cardiology Report ---
APPROVED REPORT EKG Measurement Heart [id number] <Conclusion> Normal sinus rhythm Incomplete right bundle branch block Borderline ECG
--- NOTE | 2020-10-18 08:02 | Discharge Summary ---
Discharge Summary Discharge Summary _ DATE OF ADMISSION: 10/13/2020 DATE OF DISCHARGE: 10/16/2020 DISCHARGED BY: Dr. Amos REASON FOR ADMISSION: 59 years old male with past medical history of coronary artery disease, status post stents placement, presented to emergency department complaining of left-s ided chest discomfort. He reported associated cough. He also reported bilateral leg swelling. He reported left heart catheterization about 1 month ago. No fever or chills. No nausea ,vomiting or diarrhea. Upon evaluation vital signs were stable. Laboratory work-up revealed no leukocytosis,stable hemoglobin, hematocrit and platelet count. D-dimer 0.29. Stable electrolytes. Stable renal parameters. Glucose 109. Stable LFT. Troponin 0.018, pro BNP 13 . EKG revealed sinus rhythm , no acute ischemic changes. Chest x-ray demonstrated no acute cardiopulmonary pathology. In emergency department patient received aspirin and admitted to telemetry floor for further management . CONSULTANTS: photoflash powder mixer Dr. Mariscal pulmonary Dr. Quiroga [facility]: Patient admitted to telemetry floor. Serial troponin were negative . EKG revealed sinus rhythm. Patient was ruled out for acute myocardial infarction. Patient with history of coronary artery disease with LAD stent in December 2019 and obtuse marginal stent in January 2020 with stress test on August 11, 2020 showed anterior wall ischemia . He underwent cardiac catheterization at [facility] [place] in July 2020 that showed nonobstructive coronary artery disease. Patient was continued on dual antiplatelet therapy with aspirin , Plavix along with beta blockage , Coreg and long-acting nitrate/Imdur. Diuresis with Lasix continued. Volumes and renal parameters were closely monitored. Echocardiogram demonstrated preserved ejection fraction 65 to 70%. No evidence of wall motion abnormality. No evidence of left ventricular hypertrophy. Pulse oximetry r remained stable on room air. Venous duplex bilateral lower extremity revealed no evidence of acute DVT. Patient clinically stabilized and was ready for discharge. FINAL DIAGNOSES: Chest pain Coronary artery disease, s/p stent placement Hypertension Lower extremity edema Hyperlipidemia DISCHARGE MEDICATIONS: See Medication Reconciliation list. DISCHARGE INSTRUCTIONS: Patient was discharged home. Follow-up with a primary cardiac care provider in 1 to 2 weeks. I have been assigned to dictate discharge summary for this account. I was not involved in the patient's management. Dasia Feng NP Oct 18, 2020 08:02
--- NOTE | 2020-10-24 09:10 | Coder Physician Query ---
Clarification is required for compliance, coding accuracy, and to reflect severity of illness for this patient Dear Dr. KAUR Date: 10/24/20 Product Design Specialist/CDS' Name: Charisse, [facility] Chest pain query Serial troponin were negative . EKG revealed sinus rhythm. Patient was ruled out for acute myocardial infarction. Patient with history of coronary artery disease with LAD stent in December 2019 and obtuse marginal stent in January 2020 with stress test on August 11, 2020 showed anterior wall ischemia . He underwent cardiac catheterization at [facility] in July 2020 that showed nonobstructive coronary artery disease. Patient was continued on dual antiplatelet therapy with aspirin , Plavix along with beta blockage , Coreg and long-acting nitrate/Imdur. Diuresis with Lasix continued. Volumes and renal parameters were closely monitored. Echocardiogram demonstrated preserved ejection fraction 65 to 70%. No evidence of wall motion abnormality. No evidence of left ventricular hypertrophy. FINAL DIAGNOSES: Chest pain Coronary artery disease, s/p stent placement Hypertension, Lower extremity edema, Hyperlipidemia Please document the suspected etiology of Chest Pain: [] Acute Coronary Syndrome [] Pericarditis [] Anxiety [] Pneumonia [] Costochondritis [] Pneumothorax [] GERD/Esophagitis [] Pulmonary embolism [] Other: [] Unable to determine Physician signature Date Please also document in your Progress Notes and/or Discharge Summary and indicate if the condition was present on admission. MARY
== END 2020-10-16 11:57 | disposition home or self-care (01) | DRG 198 ==
LOC: EMR 02:52 → 2E 03:03 → EDBEDREQ 13:22
DX: R07.9 Chest pain, unspecified (principal); I25.10 Atherosclerotic heart disease of native coronary artery without angina pectoris; I10 Essential (primary) hypertension; Z86.73 Personal history of transient ischemic attack (TIA), and cerebral infarction without residual deficits; Z95.5 Presence of coronary angioplasty implant and graft; Z79.02 Long term (current) use of antithrombotics/antiplatelets; I25.2 Old myocardial infarction; E78.5 Hyperlipidemia, unspecified
CPT/HCPCS: 36415; 71045; 80053; 83880; 84484; 85025; 85379; 93005; 93306; 93970; 96374; 99285

== ENCOUNTER 2020-10-16 23:09 | Emergency (ER) | payer MEDICAID ==
[~2020-10-16] VITALS: Ht 180.3 cm; Wt 99.8 kg
[2020-10-16 23:35] VITALS: BP 135/82
--- NOTE | 2020-10-17 00:04 | Emergency Room Report ---
History of Present Illness General Chief Complaint: Pain Source: Patient Present Illness HPI 59-year-old male with history of CAD here with headache. Patient's headache began suddenly 3 hours prior to coming to the emergency department. He said that he was standing and then tripped and fell and struck his head on the ground. He has been suffering from a bitemporal headache since then. Headache is worse when he bends forward. No vision changes, fevers, chills, neck stiffness, chest pain, palpitation, shortness of breath, back pain, abdominal pain, nausea, vomiting, diarrhea, dysuria, focal numbness or weakness. He was discharged from the hospital today for NSTEMI. Takes aspirin and Imdur and Plavix. Allergies: Coded Allergies: No Known Allergies (Unverified , 04/09/18) COVID-19 Screening Contact w/high risk pt: No Experienced COVID-19 symptoms?: No COVID-19 Testing performed CARDIOLOGY MANAGER: Yes - 05/2020 COVID-19 Screening: Negative COVID-19 COVID-19 Testing Source: [facility] Nursing Documentation-[facility] Past Medical History: No History, Except For Hx Hypertension: Yes Hx Pacemaker: No Hx COPD: No Hx Diabetes: No - family hx Hx Cancer: No - family hx Hx Gastrointestinal Problems: No Hx Dialysis: No Hx Neurological Problems: No Hx Cerebrovascular Accident: Yes - 2013 Hx Seizures: No Review of Systems All Other Systems: negative except mentioned in HPI Physical Exam Vital Signs Date Time Temp Pulse Resp B/P (MAP) Pulse Ox O2 Delivery O2 Flow Rate FiO2 10/16/20 23:25 97.3 98 15 142/81 (101) 98 Room Air Sp02 EP Interpretation: reviewed, normal General Appearance: no apparent distress, alert, non-toxic Head: normocephalic, atraumatic, other - Tenderness on palpation of the bitemporal regions. Eyes: bilateral eye normal inspection, bilateral eye PERRL ENT: hearing grossly normal, normal pharynx, no angioedema, normal voice Neck: full range of motion, supple/symm/no masses Respiratory: chest non-tender, lungs clear, normal breath sounds, speaking full sentences Cardiovascular #1: regular rate, rhythm, no edema Cardiovascular #2: 2+ carotid (R), 2+ carotid (L), 2+ radial (R), 2+ radial (L), 2+ dorsalis pedis (R), 2+ dorsalis pedis (L) Gastrointestinal: normal bowel sounds, non tender, soft, non-distended, no guarding, no rebound Rectal: deferred Genitourinary: normal inspection, no CVA tenderness Musculoskeletal: back normal, normal range of motion, calf tenderness, gait/station normal, non-tender Neurologic: alert, motor strength/tone normal, oriented x3, sensory intact, responsive, speech normal Psychiatric: judgement/insight normal, memory normal, mood/affect normal, no suicidal/homicidal ideation Reflexes: 3+ bicep (R), 3+ bicep (L), 3+ tricep (R), 3+ tricep (L), 3+ knee (R), 3+ knee (L) Lymphatic: no adenopathy Medical Decision Making Diagnostic Impression: Primary Impression: Headache ER Course EKG: NSR, no ischemia, intervals WNL. No ectopy. Rate 80 bpm. Normal axis Rhythm strip: patient monitored for arrhythmias - no malignant dysrhythmias, runs of PVCs, nor pauses noted ddx: Tension headache, migraine, cluster, mass-tumor, meningitis, sah, temporal arteritis, glaucoma Laboratory Tests Test 10/16/20 23:45 10/17/20 00:00 White Blood Count 13.1 K/UL (4.8-10.8) H Red Blood Count 4.95 M/UL (4.70-6.10) Hemoglobin 16.4 G/DL (14.2-18.0) Hematocrit 45.3 % (42.0-52.0) Mean Corpuscular Volume 92 FL (80-99) Mean Corpuscular Hemoglobin 33.0 PG (27.0-31.0) H Mean Corpuscular Hemoglobin Concent 36.1 G/DL (32.0-36.0) H Red Cell Distribution Width 12.3 % (11.6-14.8) Platelet Count 257 K/UL (150-450) Mean Platelet Volume 8.5 FL (6.5-10.1) Neutrophils (%) (Auto) 80.4 % (45.0-75.0) H Lymphocytes (%) (Auto) 11.8 % (20.0-45.0) L Monocytes (%) (Auto) 6.5 % (1.0-10.0) Eosinophils (%) (Auto) 0.5 % (0.0-3.0) Basophils (%) (Auto) 0.8 % (0.0-2.0) Erythrocyte Sedimentation Rate 10 MM/HR (0-20) Sodium Level 134 MMOL/L (136-145) L Potassium Level 3.1 MMOL/L (3.5-5.1) L Chloride Level 95 MMOL/L (98-107) L Carbon Dioxide Level 28 MMOL/L (21-32) Blood Urea Nitrogen 23 mg/dL (7-18) H Creatinine 1.1 MG/DL (0.55-1.30) Estimated Glomerular Filtration Rate > 60 mL/min (>60) Glucose Level 119 MG/DL (74-106) H Calcium Level 9.6 MG/DL (8.5-10.1) Total Bilirubin 1.3 MG/DL (0.2-1.0) H Direct Bilirubin 0.2 MG/DL (0.0-0.3) Aspartate Amino Transferase (AST) 23 U/L (15-37) Alanine Aminotransferase (ALT) 21 U/L (12-78) Alkaline Phosphatase 77 U/L (46-116) C-Reactive Protein, Quantitative < 0.4 mg/dL (0.00-0.90) Total Protein 8.8 G/DL (6.4-8.2) H Albumin 4.3 G/DL (3.4-5.0) Globulin 4.5 g/dL Albumin/Globulin Ratio 1.0 (1.0-2.7) Troponin I 0.024 ng/mL (0.000-0.056) CT head: No acute intracranial pathology 59-year-old male with history of CAD on aspirin and Plavix here with generalized headache for 3 hours. Patient said the headache was sudden onset. Has not taken any pain medication prior to come to the emergency department. CT head was unremarkable. CBC, CMP normal. ESR and CRP were normal as well. Patient denied any vision changes, jaw claudication, eye pain, pain along the temporal a rtery. No worry at this time for temporal arteritis. He was given Compazine, Benadryl, Toradol with good resolution of his pain. Given a prescription for Tylenol and told to follow-up with his primary care provider. Discharged in stable condition. Last Vital Signs Date Time Temp Pulse Resp B/P (MAP) Pulse Ox O2 Delivery O2 Flow Rate FiO2 10/16/20 23:35 97.9 75 17 135/82 99 Room Air Scripts Acetaminophen* (TYLENOL EXTRA STRENGTH*) 500 Mg Tablet 500 MG ORAL Q8H PRN for Prn Headache/Temp > 101, #30 TAB 0 Refills Prov: Paulino Rivers M.D. 10/17/20 Referrals: NOT CHOSEN IPA/,REFERRING (PCP) Paulino Rivers M.D. Oct 17, 2020 00:03
[2020-10-17 00:09] LABS: BASOPHILS % (AUTO) 0.8 % (0.0-2.0); EOSINOPHILS % (AUTO) 0.5 % (0.0-3.0); HEMATOCRIT 45.3 % (42.0-52.0); HEMOGLOBIN 16.4 G/DL (14.2-18.0); LYMPHOCYTES % (AUTO) 11.8 % (20.0-45.0); MEAN CORPUSCULAR VOLUME 92 FL (80-99); MONOCYTES % (AUTO) 6.5 % (1.0-10.0); NEUTROPHILS % (AUTO) 80.4 % (45.0-75.0); PLATELET COUNT 257 K/UL (150-450); RED BLOOD COUNT 4.95 M/UL (4.70-6.10); RED CELL DISTRIBUTION WIDTH 12.3 % (11.6-14.8); WHITE BLOOD COUNT 13.1 K/UL (4.8-10.8)
[2020-10-17] MEDS ORDERED: Morphine Sulfate 4mg/ml Inj (IV USE ONLY) IVP ONE (00:15)
[2020-10-17 00:34] LABS: ALANINE AMINOTRANSFERASE 21 U/L (12-78); ALBUMIN 4.3 G/DL (3.4-5.0); ALKALINE PHOSPHATASE 77 U/L (46-116); ASPARTATE AMINO TRANSFERASE 23 U/L (15-37); BILIRUBIN,TOTAL 1.3 MG/DL (0.2-1.0); BLOOD UREA NITROGEN 23 mg/dL (7-18); CALCIUM 9.6 MG/DL (8.5-10.1); CARBON DIOXIDE 28 MMOL/L (21-32); CHLORIDE 95 MMOL/L (98-107); CREATININE 1.1 MG/DL (0.55-1.30); POTASSIUM 3.1 MMOL/L (3.5-5.1); SODIUM 134 MMOL/L (136-145)
[2020-10-17 00:36] LABS: BILIRUBIN,DIRECT 0.2 MG/DL (0.0-0.3)
[2020-10-17 01:08] VITALS: BP 148/84
--- NOTE | 2020-10-17 01:15 | Diagnostic Imaging Report ---
EXAM: CT Head Without Intravenous Contrast CLINICAL HISTORY: PAIN TECHNIQUE: Axial computed tomography images of the head/brain without intravenous contrast. CTDI is 53.4 mGy and DLP is 1152.4 mGy-cm. One or more of the following dose reduction techniques were used: automated exposure control, adjustment of the mA and/or kV according to patient size, use of iterative reconstruction technique. COMPARISON: Head CT 01/03/2016. FINDINGS: Brain: Unremarkable. No hemorrhage. No significant white matter disease. No edema. Ventricles: Unremarkable. No ventriculomegaly. Bones/joints: Unremarkable. No acute fracture. Soft tissues: Unremarkable. Sinuses: Unremarkable as visualized. No acute sinusitis. Mastoid air cells: Unremarkable as visualized. No mastoid effusion. IMPRESSION: No acute intracranial pathology.
[2020-10-17] MEDS ORDERED: DiphenhydrAMINE 50mg/ml Inj IVP ONE (01:30)
[2020-10-17] MEDS ORDERED: Ketorolac 30mg Inj IV ONE (01:30)
[2020-10-17] MEDS ORDERED: TYLENOL EXTRA500 MG ORAL (01:51)
[2020-10-17 02:20] VITALS: BP 133/85
--- NOTE | 2020-10-20 13:15 | Cardiology Report ---
APPROVED REPORT EKG Measurement Heart [id number] <Conclusion> Normal sinus rhythm Cannot rule out Anterior infarct, age undetermined Abnormal ECG
== END 2020-10-17 02:20 | disposition home or self-care (01) ==
LOC: EMR 23:31
DX: R51.9 Headache, unspecified (principal); I10 Essential (primary) hypertension; I25.10 Atherosclerotic heart disease of native coronary artery without angina pectoris; Z79.02 Long term (current) use of antithrombotics/antiplatelets; Z86.73 Personal history of transient ischemic attack (TIA), and cerebral infarction without residual deficits; Z79.82 Long term (current) use of aspirin
CPT/HCPCS: 36415; 70450; 80053; 82248; 84484; 85025; 85651; 86140; 93005; J0780; J1200; J1885; J2270; J7030; Z7502; 99283

== ENCOUNTER 2020-10-28 23:02 | Emergency (ER) | payer MEDICAID ==
[~2020-10-28] VITALS: Ht 182.9 cm; Wt 95.3 kg
[~2020-10-28 23:02] MED LIST changes: +TYLENOL EXTRA500 MG ORAL
[2020-10-28 23:20] VITALS: BP 88/39
[2020-10-28] MEDS ORDERED: DiphenhydrAMINE 50mg/ml Inj IVP ONE (23:45)
[2020-10-28] MEDS ORDERED: Ketorolac 30mg Inj IV ONE (23:45)
[2020-10-29 00:16] LABS: BASOPHILS % (AUTO) 0.5 % (0.0-2.0); EOSINOPHILS % (AUTO) 1.9 % (0.0-3.0); HEMATOCRIT 38.1 % (42.0-52.0); HEMOGLOBIN 13.7 G/DL (14.2-18.0); LYMPHOCYTES % (AUTO) 23.1 % (20.0-45.0); MEAN CORPUSCULAR VOLUME 92 FL (80-99); MONOCYTES % (AUTO) 5.3 % (1.0-10.0); NEUTROPHILS % (AUTO) 69.2 % (45.0-75.0); PLATELET COUNT 232 K/UL (150-450); RED BLOOD COUNT 4.15 M/UL (4.70-6.10)
[2020-10-29 00:29] LABS: ALANINE AMINOTRANSFERASE 30 U/L (12-78); ALBUMIN 3.4 G/DL (3.4-5.0); ALBUMIN/GLOBULIN RATIO 0.9 (1.0-2.7); ALKALINE PHOSPHATASE 69 U/L (46-116); ANION GAP 2 mmol/L (5-15); ASPARTATE AMINO TRANSFERASE 19 U/L (15-37); BILIRUBIN,TOTAL 0.4 MG/DL (0.2-1.0); BLOOD UREA NITROGEN 12 mg/dL (7-18); CARBON DIOXIDE 35 MMOL/L (21-32); CHLORIDE 104 MMOL/L (98-107); CREATININE 1.4 MG/DL (0.55-1.30); POTASSIUM 3.4 MMOL/L (3.5-5.1); SODIUM 141 MMOL/L (136-145)
[2020-10-29] MEDS ORDERED: Ketorolac 30mg Inj IV ONE (01:00)
[2020-10-29] MEDS ORDERED: Acetaminophen 500mg (ES) tab ORAL ONE (01:00)
--- NOTE | 2020-10-29 01:03 | Diagnostic Imaging Report ---
EXAM: XR Chest, 1 View CLINICAL HISTORY: CP TECHNIQUE: Frontal view of the chest. COMPARISON: 10/13/2020 FINDINGS: Lungs: Unremarkable. No consolidation. Pleural space: Unremarkable. No pneumothorax. Heart: Unremarkable. No cardiomegaly. Mediastinum: Unremarkable. Bones/joints: No acute abnormality IMPRESSION: Unremarkable chest.
[2020-10-29 02:30] VITALS: BP 102/56
[2020-10-29] MEDS ORDERED: FIORICET1 EA ORAL (02:49)
--- NOTE | 2020-10-29 02:56 | Emergency Room Report ---
History of Present Illness General Chief Complaint: Headache Source: Patient Present Illness HPI 59-year-old male presents for headache. Has been seen here previously for similar headache. For the last day. Frontal/temporal, dull, 6-8 out of 10, nonradiating. Denies photophobia or blurry vision. Denies neck stiffness. Denies nausea or vomiting. Also describes pain to his left arm. Denies chest pain or shortness of breath. No other aggravating relieving factors. Denies any other associated symptoms Allergies: Coded Allergies: No Known Allergies (Unverified , 04/09/18) COVID-19 Screening Contact w/high risk pt: No Experienced COVID-19 symptoms?: No COVID-19 Testing performed CLERICAL OFFICE: No Patient History Past Medical History: HTN, TN, CAD, CVA/TIA Past Surgical History: none Pertinent Family History: none Social History: Denies: smoking, alcohol use, drug use Immunizations: UTD Reviewed Nursing Documentation: PMH: Agreed; PSxH: Agreed Nursing Documentation-PMH Hx Hypertension: Yes Hx Pacemaker: No Hx COPD: No Hx Diabetes: No - family hx Hx Cancer: No - family hx Hx Gastrointestinal Problems: No Hx Dialysis: No Hx Neurological Problems: No Hx Cerebrovascular Accident: Yes - 2013 Hx Seizures: No Review of Systems All Other Systems: negative except mentioned in HPI Physical Exam Vital Signs Date Time Temp Pulse Resp B/P (MAP) Pulse Ox O2 Delivery O2 Flow Rate FiO2 10/28/20 23:20 98.4 82 16 88/39 97 Room Air Sp02 EP Interpretation: reviewed, normal General Appearance: no apparent distress, alert, GCS 15, non-toxic Head: normocephalic, atraumatic Eyes: bilateral eye normal inspection, bilateral eye PERRL ENT: hearing grossly normal, normal pharynx, no angioedema, normal voice Neck: full range of motion, supple/symm/no masses Respiratory: chest non-tender, lungs clear, normal breath sounds, speaking full sentences Cardiovascular #1: regular rate, rhythm, no edema Cardiovascular #2: 2+ carotid (R), 2+ carotid (L), 2+ radial (R), 2+ radial (L), 2+ dorsalis pedis (R), 2+ dorsalis pedis (L) Gastrointestinal: normal bowel sounds, non tender, soft, non-distended, no guarding, no rebound Rectal: deferred Genitourinary: normal inspection, no CVA tenderness Musculoskeletal: back normal, normal range of motion, gait/station normal, non- tender Neurologic: alert, motor strength/tone normal, oriented x3, sensory intact, responsive, speech normal Psychiatric: judgement/insight normal, memory normal, mood/affect normal, no suicidal/homicidal ideation Reflexes: 3+ bicep (R), 3+ bicep (L), 3+ tricep (R), 3+ tricep (L), 3+ knee (R), 3+ knee (L) Lymphatic: no adenopathy Medical Decision Making Diagnostic Impression: Primary Impression: Headache Qualified Codes: R51.9 - Headache, unspecified ER Course Hospital Course 59-year-old male presents with headache, left-sided arm pain Differential diagnoses include: migraine, TN/unstable angina, contusion, muscle strain Clinical course Patient placed on stretcher. After initial history and physical I ordered labs, EKG, chest x-ray. labs reviewed- all electrolytes normal, troponins negative, no leukocytosis, hem oglobin/hematocrit stable EKG - NSR, no acute ischemic changes interpreted by me Chest x-ray-no cardiomegaly, no rib fracture, no pneumothorax, no acute process Patient's headache improved after Toradol, Compazine, Benadryl. No focal deficits. EKG unchanged from previous. Troponin negative. Was admitted at the end of September for chest pain. Has been seen since with troponins which were also negative. Patient did express concern for exposure to someone with Covid. No cough or shortness of breath. Chest x-ray shows no patchy opacities. We sent a Covid swab for him. Will take 48 hours to yield results. Safe for discharge with close outpatient follow-up. I. I feel this is a highly complex case requiring extensive working including EKG/Rhythm strip, Xray/CT/US, Blood/urine lab work, repeat exams while in ED, and administration of strong opiates/narcotics for pain control, admission to hospital or close patient follow up. Diagnosis - headache Stable and discharged to home with Rx Fioricet. Instructed to followup with PMD. Return to ED if symptoms recur or worsen Labs Test 10/28/20 23:50 White Blood Count 9.0 K/UL (4.8-10.8) Red Blood Count 4.15 M/UL (4.70-6.10) Hemoglobin 13.7 G/DL (14.2-18.0) Hematocrit 38.1 % (42.0-52.0) Mean Corpuscular Volume 92 FL (80-99) Mean Corpuscular Hemoglobin 33.0 PG (27.0-31.0) Mean Corpuscular Hemoglobin Concent 36.0 G/DL (32.0-36.0) Red Cell Distribution Width 13.0 % (11.6-14.8) Platelet Count 232 K/UL (150-450) Mean Platelet Volume 8.4 FL (6.5-10.1) Neutrophils (%) (Auto) 69.2 % (45.0-75.0) Lymphocytes (%) (Auto) 23.1 % (20.0-45.0) Monocytes (%) (Auto) 5.3 % (1.0-10.0) Eosinophils (%) (Auto) 1.9 % (0.0-3.0) Basophils (%) (Auto) 0.5 % (0.0-2.0) Sodium Level 141 MMOL/L (136-145) Potassium Level 3.4 MMOL/L (3.5-5.1) Chloride Level 104 MMOL/L (98-107) Carbon Dioxide Level 35 MMOL/L (21-32) Anion Gap 2 mmol/L (5-15) Blood Urea Nitrogen 12 mg/dL (7-18) Creatinine 1.4 MG/DL (0.55-1.30) Estimat Glomerular Filtration Rate > 60 mL/min (>60) Glucose Level 103 MG/DL (74-106) Calcium Level 8.0 MG/DL (8.5-10.1) Total Bilirubin 0.4 MG/DL (0.2-1.0) Aspartate Amino Transf (AST/SGOT) 19 U/L (15-37) Alanine Aminotransferase (ALT/SGPT) 30 U/L (12-78) Alkaline Phosphatase 69 U/L (46-116) Troponin I 0.035 ng/mL (0.000-0.056) Total Protein 7.2 G/DL (6.4-8.2) Albumin 3.4 G/DL (3.4-5.0) Globulin 3.8 g/dL Albumin/Globulin Ratio 0.9 (1.0-2.7) EKG Diagnostic Results Troponin ordered: Yes Rate: normal Rhythm: NSR ST Segments: no acute changes ASA given to the pt in ED: No Rhythm Strip Diag. Results EP Interpretation: yes Rhythm: NSR, no PVC's, no ectopy Chest X-Ray Diagnostic Results Chest X-Ray Diagnostic Results : Chest X-Ray Ordered: Yes # of Views/Limited/Complete: 1 View Indication: Chest Pain EP Interpretation: Yes Interpretation: no consolidation, no effusion, no pneumothorax, no acute cardiopulmonary disease Impression: No acute disease Electronically Signed by: Electronically signed by Dwight Bradley MD Last Vital Signs Date Time Temp Pulse Resp B/P (MAP) Pulse Ox O2 Delivery O2 Flow Rate FiO2 10/29/20 01:56 98.5 10/28/20 23:20 76 16 88/39 (55) 97 Room Air Status: improved Disposition: HOME, SELF-CARE Condition: Stable Scripts Acetamin/Butalbital/Caffeine* (FIORICET*) 1 Ea Tab 1 TAB ORAL Q6H, #15 TAB 0 Refills Prov: Dwight Bradley MD 10/29/20 Referrals: [facility] Alfredo [facility] Patient Instructions: General Headache Without Cause Additional Instructions: we sent a COVID test on you. it will take 48 hours to return results. we will contact you if your result is positive. Dwight Bradley MD Oct 29, 2020 02:56
[2020-10-29 06:00] VITALS: BP 112/58
== END 2020-10-29 06:00 | disposition home or self-care (01) ==
LOC: EMR 23:54
DX: R51.9 Headache, unspecified (principal); Z20.828 Contact with and (suspected) exposure to other viral communicable diseases; I10 Essential (primary) hypertension; I25.10 Atherosclerotic heart disease of native coronary artery without angina pectoris; I25.2 Old myocardial infarction; Z86.73 Personal history of transient ischemic attack (TIA), and cerebral infarction without residual deficits
CPT/HCPCS: 36415; 71045; 80053; 84484; 85025; 93005; 96361; 96374; 96375; 96376; J0780; J1200; J1885; J7030; U0004; Z7502; 99284